=== PATIENT | male | born 1990 | race Two or more races ===

== ENCOUNTER 2016-05-29 13:13 | Inpatient (IN) | payer OTHER ==
[~2016-05-29] VITALS: Ht 185.4 cm; Wt 68.9 kg
--- NOTE | 2016-05-29 15:10 | Emergency Room Report ---
History of Present Illness General Chief Complaint: General Complaint Source: Patient Present Illness HPI 26 YOM sent by surgeon Dr Vargas for evaluation of ?spinal abscess following ? diskectomy in May for "pain to lower back." Patient allegedly had pus removed from area of ?abscess of lower back earlier. Dr Vargas recommending CTAP, labs, send Pus for Cx to lab. Admission to be handled by Dr Hassan. Patient had "normal MRI" one week prior. Patient denies IVDU, lower extremity weakness, urinary/bowel incontinence. Allergies: Coded Allergies: No Known Allergies (Unverified , 05/29/16) Patient History Past Medical History: none Past Surgical History: other - disckectomy Pertinent Family History: none Social History: Denies: alcohol use, drug use, smoking Immunizations: UTD Reviewed Nursing Documentation: PMH: Agreed, PSxH: Agreed Nursing Documentation-PMH Past Medical History: No History, Except For Review of Systems All Other Systems: negative except mentioned in HPI Physical Exam Vital Signs Date Time Temp Pulse Resp B/P Pulse Ox O2 Delivery O2 Flow Rate FiO2 05/29/16 13:32 98.1 0 100/68 97 Room Air Sp02 EP Interpretation: reviewed, normal General Appearance: normal inspection, well appearing, no apparent distress, alert Head: atraumatic ENT: normal ENT inspection, hearing grossly normal, normal voice Neck: normal inspection, full range of motion, supple, no bony tend Respiratory: normal inspection, lungs clear, normal breath sounds, no respiratory distress, no retraction, no wheezing Cardiovascular #1: regular rate, rhythm, no edema Gastrointestinal: normal inspection, normal bowel sounds, non tender, soft, no guarding, no hernia Genitourinary: no CVA tenderness Musculoskeletal: other - No obvious abscess or mass midline lower/thoracic back. There is a bandage overlying left midback with obvious ttp. No maggie discharge or bleeding. Neurologic: normal inspection, alert, responsive, speech normal Psychiatric: normal inspection, judgement/insight normal, mood/affect normal Skin: normal inspection, normal color, no rash Medical Decision Making Diagnostic Impression: Primary Impression: Back abscess Additional Impression: S/P diskectomy ER Course 26 YO M with ?back abscess s/p diskectomy. VSS. Afebrile. Patient endorsed to Dr Hassan as per gen surg recommendation at 343pm Labs, CTAP as per Dr Goldstein are pending I was instructed that Dr Hassan will order wound cx and appropriate antibiotics Last Vital Signs Date Time Temp Pulse Resp B/P Pulse Ox O2 Delivery O2 Flow Rate FiO2 05/29/16 13:32 98.1 0 100/68 97 Room Air Status: unchanged Disposition: ADMITTED INPATIENT Condition: Serious Referrals: NON PHYSICIAN (PCP) CALVIN CALL M.D. May 29, 2016 15:10
[2016-05-29] MEDS ORDERED: CIPRO500 MG PO (15:19)
[2016-05-29] MEDS ORDERED: NORCO 5-325 TA1 EAC1 ORAL (15:21)
[2016-05-29] MEDS ORDERED: METHOCARBAMOL750 MG ORAL ×2 (15:21→18:05)
[2016-05-29 15:27] VITALS: BP 118/60
[2016-05-29 15:54] LABS: BASOPHILS % (AUTO) 0.8 % (0.0-2.0); EOSINOPHILS % (AUTO) 0.6 % (0.0-3.0); LYMPHOCYTES % (AUTO) 22.1 % (20.0-45.0); MEAN CORPUSCULAR HEMOGLOBIN 30.6 PG (27.0-31.0); MEAN CORPUSCULAR HGB CONC 34.6 G/DL (32.0-36.0); MEAN CORPUSCULAR VOLUME 88 FL (80-99); MEAN PLATELET VOLUME 5.4 FL (6.5-10.1); MONOCYTES % (AUTO) 10.3 % (1.0-10.0); NEUTROPHILS % (AUTO) 66.2 % (45.0-75.0); PLATELET COUNT 296 K/UL (150-450); RED BLOOD COUNT 4.02 M/UL (4.70-6.10); RED CELL DISTRIBUTION WIDTH 10.5 % (11.6-14.8); WHITE BLOOD COUNT 8.4 K/UL (4.8-10.8)
[2016-05-29 16:02] LABS: INR 1.2 (0.9-1.1); PROTHROMBIN TIME 12.2 SEC (9.30-11.50)
[2016-05-29 16:03] LABS: APPEARANCE,URINE CLEAR; KETONES,URINE 3+ (NEGATIVE); LEUKOCYTE ESTERASE ,URINE 1+ (NEGATIVE); NITRITE,URINE NEGATIVE (NEGATIVE); PH,URINE 5 (4.5-8.0); PROTEIN,URINE 1+ (NEGATIVE); UROBILINOGEN,URINE NORMAL MG/DL (0.0-1.0)
[2016-05-29 16:13] LABS: BACTERIA,URINE FEW /HPF; WBC,URINE 0-2 /HPF (0 - 0)
[2016-05-29 16:19] LABS: ALANINE AMINOTRANSFERASE 13 U/L (3-41); ALBUMIN/GLOBULIN RATIO 1.1 (1.0-2.7); ANION GAP 16 (5-15); ASPARTATE AMINO TRANSFERASE 11 U/L (5-40); CALCIUM 9.4 mg/dL (8.6-10.2); CARBON DIOXIDE 26 mEQ/L (20-30); CHLORIDE 98 mEQ/L (98-107); CREATININE 0.7 mg/dL (0.7-1.2); GLOMERULAR FILTRATION RATE > 60 mL/min (>60); HEMOLYSIS 5; LIPASE 22 U/L (< 60); POTASSIUM 3.7 mEQ/L (3.4-4.9); SODIUM 140 mEQ/L (135-145); TOTAL PROTEIN 7.4 g/dL (6.6-8.7)
--- NOTE | 2016-05-29 17:29 | Diagnostic Imaging Report ---
Indication: PAIN Technique: One view of the chest Comparison: none Findings: Lungs and pleural spaces are clear. The heart size is normal. Impression: Negative
[2016-05-29 18:00] VITALS: BP 128/86
[2016-05-29] MEDS ORDERED: MOTRIN IB200 MG ORAL (18:05)
[2016-05-29 19:00] VITALS: BP 142/80
[2016-05-29] MEDS: Vancomycin 1gm in Dextrose 275ml IVPB SCH (22:22)
[2016-05-29] MEDS: Methocarbamol 750mg tab ORAL PRN (22:23)
[2016-05-29] MEDS: Norco 5mg/325mg tab ORAL PRN (22:24)
--- NOTE | 2016-05-29 22:57 | History and Physical Report ---
DATE OF ADMISSION: 05/29/2016 REASON FOR ADMISSION: Diskitis. HISTORY OF PRESENT ILLNESS: This is a 26-year-old male, who recently underwent lumbar diskectomy. The patient postoperatively was noted to have some inflammation and pain. The patient underwent aspiration and pus removed. The patient is now transferred for admission for IV antibiotics and further intervention. PAST MEDICAL HISTORY: The patient's past medical history is essentially negative. The patient does have a history of cervical radiculopathy, otherwise has been healthy. The patient has a recent history of lumbar diskectomy as outlined. FAMILY HISTORY: Father of lung cancer. Mother is alive and healthy. SOCIAL HISTORY: The patient is and has children. The patient does have a history of smoking, quarter a pack a day and social alcohol use. REVIEW OF SYSTEMS: Otherwise negative. PHYSICAL EXAMINATION: GENERAL: A well-developed male, comfortable. NECK: Supple. LUNGS: Clear. CARDIAC: S1 and S2. Regular rhythm. ABDOMEN: Soft and nontender. EXTREMITIES: No edema. The patient has pain in the lower back. LABORATORY DATA: The patient's previous laboratories, CRP is 7.8 and sedimentation rate 27. The patient's other laboratory data is otherwise reviewed. IMPRESSION: 1. Diskitis. 2. Postoperative anemia and pain. 3. Status post drainage of pus in the lumbar region. RECOMMENDATION: MRI of the lumbosacral spine. We will send all the cultures for evaluation. Infectious Disease evaluation. We will start him on vancomycin and Zosyn for now. Recommend further pending evaluation and pain control. We will discharge with intravenous antibiotics once cleared by Infectious Disease. Dl Hassan M.D. DR: Guevara JOB#: [id number] CC:
[2016-05-30] VITALS (7 sets, daily range): BP systolic 112–132; BP diastolic 59–76
[2016-05-30] MEDS: Norco 5mg/325mg tab ORAL PRN ×2 (04:29→13:43)
[2016-05-30] MEDS: Vancomycin 1gm in Dextrose 275ml IVPB SCH ×3 (05:21→21:53)
[2016-05-30 07:24] LABS: BASOPHILS % (AUTO) 2.4 % (0.0-2.0); EOSINOPHILS % (AUTO) 0.9 % (0.0-3.0); MEAN CORPUSCULAR HEMOGLOBIN 30.7 PG (27.0-31.0); MEAN CORPUSCULAR HGB CONC 34.6 G/DL (32.0-36.0); MEAN CORPUSCULAR VOLUME 89 FL (80-99); MEAN PLATELET VOLUME 5.6 FL (6.5-10.1); MONOCYTES % (AUTO) 16.1 % (1.0-10.0); NEUTROPHILS % (AUTO) 63.5 % (45.0-75.0); PLATELET COUNT 312 K/UL (150-450); RED BLOOD COUNT 4.01 M/UL (4.70-6.10); RED CELL DISTRIBUTION WIDTH 10.6 % (11.6-14.8); WHITE BLOOD COUNT 8.3 K/UL (4.8-10.8)
[2016-05-30 07:29] LABS: ANION GAP 16 (5-15); CALCIUM 9.5 mg/dL (8.6-10.2); CARBON DIOXIDE 26 mEQ/L (20-30); CHLORIDE 100 mEQ/L (98-107); CREATININE 0.6 mg/dL (0.7-1.2); GLOMERULAR FILTRATION RATE > 60 mL/min (>60); HEMOLYSIS 4; SODIUM 142 mEQ/L (135-145)
[2016-05-30] MEDS: Piperacillin/Tazobactam 4.5 GM in D5W 110 ML IVPB SCH ×4 (08:00→17:03)
--- NOTE | 2016-05-30 08:36 | General Progress Note ---
Assessment/Plan Assessment/Plan IMPRESSION: 1. Diskitis. 2. Postoperative anemia and pain. 3. Status post drainage of pus in the lumbar region PLAN IV antibiotics local care ID evaluation pain control Subjective Allergies: Coded Allergies: No Known Allergies (Unverified , 05/29/16) Subjective care noted Objective Last 24 Hour Vital Signs Date Time Temp Pulse Resp B/P Pulse Ox O2 Delivery O2 Flow Rate FiO2 05/30/16 04:00 97.2 69 20 119/62 96 Room Air 05/30/16 00:42 98.2 74 18 117/60 95 Room Air 05/29/16 19:00 99.1 88 20 142/80 98 Room Air 05/29/16 18:00 99.0 95 20 128/86 98 Room Air 05/29/16 17:03 98.4 75 19 126/62 98 Room Air 05/29/16 15:27 98.4 81 19 118/60 97 Room Air 05/29/16 13:32 98.1 0 100/68 97 Room Air Intake and Output 05/29/16 05/30/16 19:00 07:00 Intake Total 100 ml 395.000 ml Balance 100 ml 395.000 ml Intake Oral 100 ml 120 ml IV Total 275.000 ml # Voids 5 # Bowel Movements 1 1 Laboratory Tests 05/29/16 15:25: White Blood Count 8.4, Red Blood Count 4.02L, Hemoglobin 12.3L, Hematocrit 35.5L , Mean Corpuscular Volume 88, Mean Corpuscular Hemoglobin 30.6, Mean Corpuscular Hemoglobin Concent 34.6, Red Cell Distribution Width 10.5L, Platelet Count 296, Mean Platelet Volume 5.4L, Neutrophils (%) (Auto) 66.2, Lymphocytes (%) (Auto) 22.1, Monocytes (%) (Auto) 10.3H, Eosinophils (%) (Auto) 0.6, Basophils (%) (Auto) 0.8, Erythrocyte Sedimentation Rate 43H, Prothrombin Time 12.2H, Prothromb Time International Ratio 1.2H, Activated Partial Thromboplast Time 27, Sodium Level 140, Potassium Level 3.7, Chloride Level 98, Carbon Dioxide Level 26, Anion Gap 16H, Blood Urea Nitrogen 14, Creatinine 0.7, Estimat Glomerular Filtration Rate > 60, Glucose Level 85, Calcium Level 9.4, Total Bilirubin 0.4, Aspartate Amino Transf (AST/SGOT) 11, Alanine Aminotransferase (ALT/SGPT) 13, Alkaline Phosphatase 51, C-Reactive Protein, Quantitative 8.6H, Total Protein 7.4, Albumin 4.0, Globulin 3.4, Albumin/ Globulin Ratio 1.1, Lipase 22 05/29/16 15:29: Urine Color Yellow, Urine Appearance Clear, Urine pH 5, Urine Specific [place] 1.020, Urine Protein 1+H, Urine Glucose (UA) Negative, Urine Ketones 3+H, Urine Occult Blood 1+H, Urine Nitrite Negative, Urine Bilirubin Negative, Urine Urobilinogen Normal, Urine Leukocyte Esterase 1+H, Urine RBC 2-4H, Urine WBC 0-2 , Urine Squamous Epithelial Cells None, Urine Bacteria Few 05/30/16 05:15: White Blood Count 8.3, Red Blood Count 4.01L, Hemoglobin 12.3L, Hematocrit 35.5L , Mean Corpuscular Volume 89, Mean Corpuscular Hemoglobin 30.7, Mean Corpuscular Hemoglobin Concent 34.6, Red Cell Distribution Width 10.6L, Platelet Count 312, Mean Platelet Volume 5.6L, Neutrophils (%) (Auto) 63.5, Lymphocytes (%) (Auto) 17.0L, Monocytes (%) (Auto) 16.1H, Eosinophils (%) (Auto ) 0.9, Basophils (%) (Auto) 2.4H, Sodium Level 142, Potassium Level 4.0, Chloride Level 100, Carbon Dioxide Level 26, Anion Gap 16H, Blood Urea Nitrogen 15, Creatinine 0.6L, Estimat Glomerular Filtration Rate > 60, Glucose Level 100 , Calcium Level 9.5 Height (Feet): 6 Height (Inches): 1.00 Weight (Pounds): 152 Objective PHYSICAL EXAMINATION: GENERAL: A well-developed male, comfortable. NECK: Supple. LUNGS: Clear. CARDIAC: S1 and S2. Regular rhythm. ABDOMEN: Soft and nontender. EXTREMITIES: No edema. The patient has pain in the lower back. . ROSLYN RAYMUNDO May 30, 2016 08:36
[2016-05-30] MEDS: Methocarbamol 750mg tab ORAL PRN (09:23)
[2016-05-30] MEDS ORDERED: LORazepam 1mg tab ORAL ONE (10:15)
[2016-05-30] MEDS ORDERED: LORazepam 0.5mg tab ORAL ONE (10:15)
--- NOTE | 2016-05-30 10:29 | Diagnostic Imaging Report ---
Indication: Abdominal pain Technique: Continuous helical transaxial imaging of the abdomen and pelvis was obtained from the lung bases to the pubic symphysis during intravenous contrast administration. Coronal 2-D reformats were also obtained. Study obtained in a Siemens sensation [address] Total Dose length Product (DLP): [address] Dose Index Volume (CTDIvol): 16 mGy Comparison: None Findings: The lung bases are clear. The liver and spleen unremarkable in appearance. Kidneys, gallbladder and pancreas appear unremarkable. Moderate lateral fecal material within the colon noted. There is abnormally rim there enhancing focus of low attenuation in the left psoas muscle which is enlarged. The focus measures approximately 4.4 x 4.4 x 2.6 cm and is at the level of L4-5 findings are suspicious for a left psoas abscess in association with spondylitis. There is irregularity and suggestion of erosion involving the superior endplate of L5 suspicious for discitis and osteomyelitis. There is a probable tiny focus of air within the left psoas collection. There is a suspected small epidural collection posterior to the L4-5 disc and the L5 vertebra.Further evaluation of the findings with MRI is highly recommended. This should be done with and without gadolinium. Impression: Suspected at L4-5 discitis/osteomyelitis. Possible small epidural abscess at this level. Approximately 4.4 x 4.4 x 2.6 cm rim-enhancing suspected abscess in the left so as muscle noted adjacently. Further evaluation with gadolinium-enhanced MRI is recommended. Dr. Martino has communicated the preliminary results to the Emergency Department. There are no significant discrepancies. The CT scanner at [facility] is accredited by the [employer] and the scans are performed using protocols designed to limit radiation exposure to as low as reasonably achievable to attain images of sufficient resolution adequate for diagnostic evaluation.
[2016-05-30] MEDS ORDERED: LORazepam Inj 2mg/ml 1ml IV ONE (10:30)
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
--- NOTE | 2016-05-30 13:04 | Diagnostic Imaging Report ---
Indication: Back pain Technique: MRI examination of the Lumbar spine was performed in a 1.5 [place]ora magnet. Sequences obtained include sagittal and axial T1 and T2 fast spin echo, and sagittal STIR. Gadolinium-enhanced sagittal coronal and axial T1 fast spin-echo with fat saturation obtained. Comparison: none Findings: There is abnormal enhancement of the posterior aspect of the L4-5 disc especially toward the superior endplate. By CT the superior endplate in this location demonstrated some erosion. In addition there is a moderate enhancement of the posterior annular portion of the disc as well as the epidural space in the subligamentous location posterior to L5, extending into the left L4-5 neural foramen and into the psoas muscle. There is no epidural abscess. The enhancement may be associated with the discitis that is suspected. There is a hint of T2 hyperintense signal along the superior endplate of L5 present. In addition, there is a abnormal focus of heterogeneous T2 hyperintense edema in the left psoas muscle. The area of edema and enhances intensely with contrast material. Post enhancement images demonstrate several tiny pockets of low T1 signal fluid. The largest single pocket is about 2 x 1.1 CM. Both the exiting left L3 and L4 nerve roots traverse the abscess collection. The findings are consistent with a multiloculated left psoas abscess in association with discitis/osteomyelitis. There is narrowing of the L4-5 disc. There is a concentric disc bulge at L5-S1. There is no evidence of central spinal stenosis or neural foraminal stenosis. There is some hypertrophy of the L4-5 and L5-S1 facets. Impression: L4-5 discitis/osteomyelitis with moderate degree of epidural enhancement involving the subligamentous epidural space posterior to L5 as well as the left lateral recess/neural foramen of L4-5 with extension into the left paravertebral psoas muscle. Multiloculated left psoas muscle abscess noted.
[2016-05-30] MEDS ORDERED: Sodium Bicarbonate 8.4% 50ml Inj IV PRN (14:30)
[2016-05-30] MEDS ORDERED: Lidocaine 1% Plain 30 ml INJ PRN (14:30)
--- NOTE | 2016-05-30 15:54 | Diagnostic Imaging Report ---
Indication: lumbar abscess Technique: Continuous helical transaxial imaging of the lower lumbar spine was obtained with the patient prone. No IV contrast was administered. Coronal 2-D reformats were also obtained. Study obtained in a Siemens sensation [address] Total Dose length Product (DLP): [address] Dose Index Volume (CTDIvol): 12x7 mGy Comparison: None Findings and procedure: Informed consent for the procedure was obtained. The risks, benefits, and alternatives to the procedure were discussed with the responsible democrat. We were given verbal and written consent to proceed. After the CT images were reviewed, the lower back was prepped and sterilely draped. 1% lidocaine was administered for local anesthesia. Dermatotomy made. Micropuncture needle was used to access the abscess at L4-5. Some fluid was aspirated. A 0.018 wire was then advanced. Exchange was made for a 0.035 wire. Subsequently a 7 Turk[place] pigtail drainage catheter was advanced over the wire into the abscess cavity. Aspiration yielded approximately 13 cc of cloudy blood-tinged fluid. Review of the final images show good positioning of the catheter within the chosen region of interest. There were no complications and the patient tolerated the procedure well. Impression: Successful aspiration and CT-guided drainage of a left paravertebral psoas abscess at L4-5. Fluid obtained was sent for culture and sensitivities, Gram stain, AFB stain and culture, fungal culture. The CT scanner at [facility] is accredited by the [employer] and the scans are performed using protocols designed to limit radiation exposure to as low as reasonably achievable to attain images of sufficient resolution adequate for diagnostic evaluation.
[2016-05-30] MEDS: HYDROmorphone 1mg/ml Carpuject IVP PRN (18:38)
[2016-05-30] MEDS ORDERED: Piperacillin/Tazobactam 4.5 GM in D5W 110 ML IVPB SCH (22:00)
[2016-05-31] MEDS: Piperacillin/Tazobactam 4.5 GM in D5W 110 ML IVPB SCH ×3 (00:13→16:00)
[2016-05-31] MEDS: HYDROmorphone 1mg/ml Carpuject IVP PRN ×4 (00:58→20:31)
[2016-05-31 04:00] VITALS: BP 106/57
[2016-05-31] MEDS: Vancomycin 1250mg/D5W 275ml IVPB SCH ×6 (04:00→21:06)
[2016-05-31 08:00] VITALS: BP 122/81
--- NOTE | 2016-05-31 11:57 | General Progress Note ---
Assessment/Plan Assessment/Plan IMPRESSION: 1. Diskitis. 2. Postoperative anemia and pain. 3. Status post drainage of pus in the lumbar region PLAN IV antibiotics Pain management local care ID evaluation pain control Subjective Allergies: Coded Allergies: No Known Allergies (Unverified , 05/29/16) Subjective care noted Objective Last 24 Hour Vital Signs Date Time Temp Pulse Resp B/P Pulse Ox O2 Delivery O2 Flow Rate FiO2 05/31/16 08:00 97.3 118 20 122/81 Room Air 05/31/16 04:00 97.2 65 21 106/57 97 Room Air 05/30/16 23:57 98.6 72 20 113/69 96 Room Air 05/30/16 19:00 98.8 82 20 112/59 95 Room Air 05/30/16 16:00 96.0 79 20 115/75 99 Room Air 05/30/16 12:00 97.9 69 20 132/76 99 Room Air Intake and Output 05/30/16 05/31/16 19:00 07:00 Intake Total 350 ml 723.708 ml Output Total 0 ml Balance 350 ml 723.708 ml Intake Oral 240 ml 540 ml IV Total 110 ml 183.708 ml Output Urine Total 0 ml Other 0 ml # Voids 3 3 Laboratory Tests 05/30/16 21:00: Vancomycin Level Trough 9.6 Height (Feet): 6 Height (Inches): 1.00 Weight (Pounds): 152 Objective PHYSICAL EXAMINATION: GENERAL: A well-developed male, comfortable. NECK: Supple. LUNGS: Clear. CARDIAC: S1 and S2. Regular rhythm. ABDOMEN: Soft and nontender. EXTREMITIES: No edema. The patient has pain in the lower back. . ROSLYN RAYMUNDO May 31, 2016 11:57
[2016-05-31 12:00] VITALS: BP 105/58
[2016-05-31] MEDS: Norco 5mg/325mg tab ORAL PRN ×2 (14:23→22:55)
[2016-05-31 16:00] VITALS: BP 110/76
[2016-05-31 20:00] VITALS: BP 118/71
[2016-06-01] MEDS: Piperacillin/Tazobactam 4.5 GM in D5W 110 ML IVPB SCH ×3 (00:42→16:40)
[2016-06-01] MEDS: HYDROmorphone 1mg/ml Carpuject IVP PRN ×3 (00:43→19:07)
[2016-06-01 00:56] VITALS: BP 121/60
[2016-06-01 04:00] VITALS: BP 110/69
[2016-06-01] MEDS: Vancomycin 1250mg/D5W 275ml IVPB SCH ×6 (04:46→20:34)
--- NOTE | 2016-06-01 06:06 | General Progress Note ---
Assessment/Plan Assessment/Plan IMPRESSION: 1. Diskitis. 2. Postoperative anemia and pain. 3. Status post drainage of pus in the lumbar region PLAN IV antibiotics Pain management local care ID evaluation pain control await culture results maintain drainage catheter per surgery Subjective Allergies: Coded Allergies: No Known Allergies (Unverified , 05/29/16) Subjective care noted Objective Last 24 Hour Vital Signs Date Time Temp Pulse Resp B/P Pulse Ox O2 Delivery O2 Flow Rate FiO2 06/01/16 04:00 97.2 51 20 110/69 99 Nasal Cannula 2.0 06/01/16 00:56 98.4 64 21 121/60 100 Nasal Cannula 2.0 05/31/16 20:00 97.5 84 17 118/71 Room Air 05/31/16 16:00 98.1 78 18 110/76 Room Air 05/31/16 12:00 99.0 70 20 105/58 98 Room Air 05/31/16 08:45 97.2 05/31/16 08:00 97.3 118 20 122/81 Room Air Intake and Output 05/31/16 06/01/16 19:00 07:00 Intake Total 480 ml 1285.000 ml Output Total 655 ml Balance 480 ml 630.000 ml Intake Oral 480 ml 300 ml IV Total 985.000 ml Output Urine Total 650 ml Other 5 ml # Voids 3 Height (Feet): 6 Height (Inches): 1.00 Weight (Pounds): 152 Objective PHYSICAL EXAMINATION: GENERAL: A well-developed male, comfortable. NECK: Supple. LUNGS: Clear. CARDIAC: S1 and S2. Regular rhythm. ABDOMEN: Soft and nontender. EXTREMITIES: No edema. The patient has pain in the lower back. . ROSLYN RAYMUNDO Jun 01, 2016 06:06
[2016-06-01] MEDS: Norco 5mg/325mg tab ORAL PRN ×2 (07:57→18:22)
[2016-06-01 08:30] VITALS: BP 116/68
--- NOTE | 2016-06-01 11:02 | Infectious Diseases Prog Note ---
Assessment/Plan Assessment/Plan A: L4-L5 osteomyelitis Psoas abscess s/p diskectomy P: Continue Zosyn & Vancomycin Will f/u cultures Subjective ROS Limited/Unobtainable: No Constitutional: Reports: no symptoms Respiratory: Reports: no symptoms Gastrointestinal/Abdominal: Reports: nausea, vomiting Musculoskeletal: Reports: other - back pain, pain Allergies: Coded Allergies: No Known Allergies (Unverified , 05/29/16) Objective Vital Signs Last 24 Hour Vital Signs Date Time Temp Pulse Resp B/P Pulse Ox O2 Delivery O2 Flow Rate FiO2 06/01/16 08:30 97.5 66 20 116/68 99 Room Air 06/01/16 04:00 97.2 51 20 110/69 99 Nasal Cannula 2.0 06/01/16 00:56 98.4 64 21 121/60 100 Nasal Cannula 2.0 05/31/16 20:00 97.5 84 17 118/71 Room Air 05/31/16 16:00 98.1 78 18 110/76 Room Air 05/31/16 12:00 99.0 70 20 105/58 98 Room Air Height (Feet): 6 Height (Inches): 1.00 Weight (Pounds): 152 General Appearance: no acute distress HEENT: mucous membranes moist Respiratory/Chest: lungs clear Cardiovascular: normal rate Abdomen: soft, non tender, other - drain in left back Extremities: no edema Neurologic/Psychiatric: alert, oriented x 3, responsive Microbiology Date/Time Source Procedure Growth Status 05/29/16 15:30 Blood Blood Culture - Preliminary NO GROWTH AFTER 48 HOURS Resulted 05/29/16 15:00 Blood Blood Culture - Preliminary NO GROWTH AFTER 48 HOURS Resulted 05/30/16 15:10 Body Fluid Other AFB Specimen Processing Tissue - Final Resulted 05/30/16 15:10 Body Fluid Other Acid Fast Bacilli Smear - Final Resulted 05/30/16 15:10 Body Fluid Other Acid Fast Bacilli Culture Pending Resulted 05/30/16 15:10 Other(Specify in comment) Gram Stain - Final Resulted 05/30/16 15:10 Other(Specify in comment) Wound Culture Pending Resulted Current Medications Medications (Trade) Dose Ordered Sig/Stefania Route PRN Reason Start Time Stop Time Status Last Admin Dose Admin Acetaminophen (Tylenol) 650 mg Q4H PRN ORAL Mild Pain/Temp > 100.5 05/29/16 19:45 06/28/16 19:44 05/30/16 03:56 Acetaminophen/ Hydrocodone Bitart ([place] 5/325) 1 tab Q6H PRN ORAL FOR MODERATE PAIN 05/29/16 19:45 06/05/16 19:44 06/01/16 07:57 Hydromorphone HCl 1 mg 1 mg Q3H PRN IVP Severe Break[place] Pain (>7) 05/30/16 18:15 06/06/16 18:14 06/01/16 04:46 Methocarbamol 750 mg 750 mg Q6H PRN ORAL Muscle Spasm 05/29/16 19:45 06/28/16 19:44 05/30/16 09:23 Ondansetron HCl (Zofran) 4 mg Q6H PRN IVP Nausea & Vomiting 05/30/16 10:30 06/29/16 10:29 06/01/16 05:32 Piperacillin Sod/ Tazobactam Sod/ Dextrose (Zosyn/D5W) 110 ml @ 27.5 mls/hr Q8H IVPB 05/30/16 00:00 06/06/16 00:00 06/01/16 09:24 Sodium Chloride (0.45% NS 1000ml) 1,000 ml @ 100 mls/hr Q10H IV 05/31/16 14:00 06/30/16 13:59 05/31/16 22:55 Vancomycin HCl (Vanco rx to dose) 1 ea DAILY PRN MISC Per rx protocol 05/29/16 19:45 06/28/16 19:44 Vancomycin HCl 1.25 gm/Dextrose 275 ml @ 183.333 mls/hr Q8H IVPB 05/31/16 04:00 06/05/16 03:59 06/01/16 04:46 BING RUSSO Jun 01, 2016 11:02
[2016-06-01 12:46] VITALS: BP 119/49
[2016-06-01 16:09] VITALS: BP 100/60
[2016-06-01 20:36] VITALS: BP 123/68
[2016-06-02] VITALS: BP 122/73
[2016-06-02] MEDS: Piperacillin/Tazobactam 4.5 GM in D5W 110 ML IVPB SCH ×2 (00:03→08:00)
[2016-06-02] MEDS: HYDROmorphone 1mg/ml Carpuject IVP PRN ×3 (00:03→13:42)
[2016-06-02] MEDS: Norco 5mg/325mg tab ORAL PRN ×2 (03:42→18:09)
[2016-06-02 04:00] VITALS: BP 127/78
[2016-06-02] MEDS: Vancomycin 1250mg/D5W 275ml IVPB SCH ×2 (04:18)
[2016-06-02 08:00] VITALS: BP 121/82
[2016-06-02] MEDS ORDERED: Sodium Bicarbonate 8.4% 50ml Inj IV PRN (08:30)
[2016-06-02] MEDS ORDERED: Heparin 2000 units/Ns 1000ml INJ PRN (08:30)
[2016-06-02] MEDS ORDERED: Lidocaine 1% Plain 30 ml INJ PRN (08:30)
--- NOTE | 2016-06-02 08:34 | General Progress Note ---
Assessment/Plan Assessment/Plan IMPRESSION: 1. Diskitis. with enterococcus 2. Postoperative anemia and pain. 3. Status post drainage of pus in the lumbar region PLAN IV antibiotics- dc zosyn and place on ampicillin Pain management; start oxycontin local care ID evaluation to taper antibiotics pain control dc planning patient may need SNF Subjective Allergies: Coded Allergies: No Known Allergies (Unverified , 05/29/16) Subjective care noted Objective Last 24 Hour Vital Signs Date Time Temp Pulse Resp B/P Pulse Ox O2 Delivery O2 Flow Rate FiO2 06/02/16 08:00 97.5 65 19 121/82 98 Room Air 06/02/16 04:57 97.0 06/02/16 04:00 97.5 70 18 127/78 98 Nasal Cannula 2.0 06/02/16 00:35 97.0 06/02/16 00:00 97.9 60 18 122/73 99 Nasal Cannula 2.0 06/01/16 20:36 97.0 71 19 123/68 97 Room Air 06/01/16 16:09 97.9 73 18 100/60 99 Nasal Cannula 2.0 06/01/16 12:46 98.2 76 20 119/49 95 Room Air Intake and Output 06/01/16 06/02/16 19:00 07:00 Intake Total 295.0 ml 1258.326 ml Output Total 35 ml Balance 295.0 ml 1223.326 ml Intake Oral 240 ml 360 ml IV Total 55.0 ml 898.326 ml Other 35 ml # Voids 2 1 Height (Feet): 6 Height (Inches): 1.00 Weight (Pounds): 152 Objective PHYSICAL EXAMINATION: GENERAL: A well-developed male, comfortable. NECK: Supple. LUNGS: Clear. CARDIAC: S1 and S2. Regular rhythm. ABDOMEN: Soft and nontender. EXTREMITIES: No edema. The patient has pain in the lower back. . ROSLYN RAYMUNDO Jun 02, 2016 08:34
[2016-06-02] MEDS: oxyCONTIN 20mg tab ORAL SCH ×2 (10:12→20:49)
--- NOTE | 2016-06-02 11:20 | Infectious Diseases Prog Note ---
"Assessment/Plan Assessment/Plan antibiotics : vancomycin iv, ampicillin A 1. lumbar discitis | osteomyelitis 2. psoas abscess s/p aspiration with enterococcus 3. s/p lumbar discectomy P 1. continue iv ampicillin 2. d/c iv vancomycin 3. consider PICC line Subjective Constitutional: Denies: chills, fever Respiratory: Denies: dry cough, shortness of breath Gastrointestinal/Abdominal: Denies: diarrhea, nausea, vomiting Musculoskeletal: Reports: pain Allergies: Coded Allergies: No Known Allergies (Unverified , 05/29/16) Objective Vital Signs Last 24 Hour Vital Signs Date Time Temp Pulse Resp B/P Pulse Ox O2 Delivery O2 Flow Rate FiO2 06/02/16 08:00 97.5 65 19 121/82 98 Room Air 06/02/16 04:57 97.0 06/02/16 04:00 97.5 70 18 127/78 98 Nasal Cannula 2.0 06/02/16 00:35 97.0 06/02/16 00:00 97.9 60 18 122/73 99 Nasal Cannula 2.0 06/01/16 20:36 97.0 71 19 123/68 97 Room Air 06/01/16 16:09 97.9 73 18 100/60 99 Nasal Cannula 2.0 06/01/16 12:46 98.2 76 20 119/49 95 Room Air Height (Feet): 6 Height (Inches): 1.00 Weight (Pounds): 152 Respiratory/Chest: lungs clear Cardiovascular: normal rate, regular rhythm, no gallop/murmur Abdomen: soft, non tender Extremities: no edema Microbiology Date/Time Source Procedure Growth Status 05/30/16 15:10 Body Fluid Other AFB Specimen Processing Tissue - Final Resulted 05/30/16 15:10 Body Fluid Other Acid Fast Bacilli Smear - Final Resulted 05/30/16 15:10 Body Fluid Other Acid Fast Bacilli Culture Pending Resulted 05/30/16 15:10 Other(Specify in comment) Gram Stain - Final Resulted 05/30/16 15:10 Other(Specify in comment) Wound Culture - Preliminary Resulted SMITHA YAP Jun 02, 2016 11:20"
[2016-06-02 12:05] VITALS: BP 104/63
[2016-06-02] MEDS: Methocarbamol 750mg tab ORAL PRN (13:58)
[2016-06-02] MEDS: Ampicillin 1 GM in NS 55 ML IVPB SCH ×2 (14:03→18:08)
--- NOTE | 2016-06-02 14:45 | Diagnostic Imaging Report ---
Indications: Needs long-term IV access Technique: Ultrasound confirms patent compressible left basilic vein. Total sterile technique, including sterile probe cover and sterile gel, hat, mask,, sterile gown, large sterile drape, and preparation with 2% chlorhexidine utilized. Local anesthesia with 1% lidocaine. Under real-time ultrasound guidance, puncture is a vein using 21-gauge needle, documented and archived, passage 0.018 guidewire under direct fluoroscopy, which was used to determine appropriate catheter length, exchange for 5 Portuguese peel-away sheath. 5 Portuguese Bard dual-lumen power PICC cut to 47 cm. It was inserted through the peel-away sheath. Peel-away sheath and guidewire removed. Catheter fixed to the skin. Both catheter ports aspirated and flushed. Patient tolerated procedure well, without immediate complication. Digital radiograph documents satisfactory catheter tip position, at the cavoatrial junction. Total fluoroscopy time 0.3 minutes. Total dose area product 1.8 dGycm2 Impression: Successful placement of left arm PICC under sonographic and fluoroscopic guidance, as described above.
[2016-06-02 16:00] VITALS: BP 126/75
[2016-06-02 20:00] VITALS: BP 122/72
[2016-06-02 21:23] LABS: BASOPHILS % (AUTO) 1.3 % (0.0-2.0); EOSINOPHILS % (AUTO) 1.2 % (0.0-3.0); LYMPHOCYTES % (AUTO) 15.3 % (20.0-45.0); MEAN CORPUSCULAR HEMOGLOBIN 30.6 PG (27.0-31.0); MEAN CORPUSCULAR HGB CONC 34.2 G/DL (32.0-36.0); MEAN CORPUSCULAR VOLUME 89 FL (80-99); MEAN PLATELET VOLUME 5.2 FL (6.5-10.1); MONOCYTES % (AUTO) 10.7 % (1.0-10.0); NEUTROPHILS % (AUTO) 71.4 % (45.0-75.0); PLATELET COUNT 253 K/UL (150-450); RED BLOOD COUNT 3.45 M/UL (4.70-6.10); RED CELL DISTRIBUTION WIDTH 10.3 % (11.6-14.8); WHITE BLOOD COUNT 8.7 K/UL (4.8-10.8)
[2016-06-03] VITALS: BP 123/73
[2016-06-03] MEDS: Ampicillin 1 GM in NS 55 ML IVPB SCH ×5 (00:59→23:50)
[2016-06-03 04:00] VITALS: BP 126/76
[2016-06-03] MEDS: HYDROmorphone 1mg/ml Carpuject IVP PRN ×2 (07:54→10:50)
[2016-06-03 08:00] VITALS: BP 132/76
[2016-06-03] MEDS: oxyCONTIN 20mg tab ORAL SCH ×2 (08:57→21:08)
--- NOTE | 2016-06-03 11:19 | Infectious Diseases Prog Note ---
"Assessment/Plan Assessment/Plan antibiotics : ampicillin A 1. lumbar discitis | osteomyelitis 2. psoas abscess s/p aspiration with enterococcus 3. s/p lumbar discectomy P 1. continue iv ampicillin in hospital 2. iv vancomycin on discharge 37 more days 3. cbc, bmp, vancomycin level q weekly Subjective Constitutional: Denies: chills, fever Respiratory: Denies: dry cough, shortness of breath Gastrointestinal/Abdominal: Reports: nausea, vomiting, Denies: diarrhea Musculoskeletal: Reports: pain Allergies: Coded Allergies: No Known Allergies (Unverified , 05/29/16) Objective Vital Signs Last 24 Hour Vital Signs Date Time Temp Pulse Resp B/P Pulse Ox O2 Delivery O2 Flow Rate FiO2 06/03/16 08:24 97.6 06/03/16 08:00 97.6 76 20 132/76 97 Room Air 06/03/16 04:00 97.6 88 20 126/76 95 Room Air 06/03/16 00:00 97.6 75 20 123/73 96 Room Air 06/02/16 20:00 98.6 72 18 122/72 100 Room Air 06/02/16 16:00 98.2 72 17 126/75 97 Room Air 06/02/16 12:05 98.2 70 20 104/63 96 Room Air Height (Feet): 6 Height (Inches): 1.00 Weight (Pounds): 152 Respiratory/Chest: lungs clear Cardiovascular: normal rate, regular rhythm, no gallop/murmur Abdomen: soft, non tender Extremities: no edema, other - left arm PICC Laboratory Tests Test 06/02/16 21:00 White Blood Count 8.7 K/UL (4.8-10.8) Red Blood Count 3.45 M/UL (4.70-6.10) L Hemoglobin 10.6 G/DL (14.2-18.0) L Hematocrit 30.8 % (42.0-52.0) L Mean Corpuscular Volume 89 FL (80-99) Mean Corpuscular Hemoglobin 30.6 PG (27.0-31.0) Mean Corpuscular Hemoglobin Concent 34.2 G/DL (32.0-36.0) Red Cell Distribution Width 10.3 % (11.6-14.8) L Platelet Count 253 K/UL (150-450) Mean Platelet Volume 5.2 FL (6.5-10.1) L Neutrophils (%) (Auto) 71.4 % (45.0-75.0) Lymphocytes (%) (Auto) 15.3 % (20.0-45.0) L Monocytes (%) (Auto) 10.7 % (1.0-10.0) H Eosinophils (%) (Auto) 1.2 % (0.0-3.0) Basophils (%) (Auto) 1.3 % (0.0-2.0) C-Reactive Protein, Quantitative Pending SMITHA YAP Jun 03, 2016 11:19"
[2016-06-03 12:00] VITALS: BP 128/74
--- NOTE | 2016-06-03 12:25 | Diagnostic Imaging Report ---
Indications: ABSCESS Technique: Spiral acquisitions obtained through the lumbar spine. Multiplanar reconstructions were generated. No IV contrast utilized. Total dose length product 0.31 mGycm. CTDIvol(s) one point mGy Comparison: Spine MRI dated 05/30/2016, images from drainage catheter placement 05/30/2016 Findings: Lack of IV contrast limits evaluation of previously reported psoas abscess. There is asymmetric enlargement of the left psoas muscle, and slight central contrast heterogeneity, and infiltration of the pericolic fat. These findings all appear somewhat less striking than on the 05/30/2016 pre-drainage images. The drain has been removed in the interim There is extensive destruction of the superior L5 endplate and inferior L4 endplate, particular the former. This appears to have progressed since a previous abdominal CT of 05/29/2016. No findings to suggest epidural abscess are evident. There is mild circumferential annular bulge at this level, no significant spinal or neural foraminal stenosis. The remaining disc spaces and endplates are preserved. No acute fractures. No dislocations. There is unfused apophysis of the inferior left L3 facet. The bony alignment is normal. Impression: Evaluation of previously drained left psoas abscess is difficult on this exam, as the abscess is not outlined in the absence of IV contrast ministration. Slight edema of the left psoas muscle, perimuscular inflammatory change, and central low-attenuation appears less striking and on images taken prior catheter drainage. Pronounced destructive changes of the inferior L4 and superior L5 endplates, consistent with aggressive discitis/osteomyelitis right on recent MRI. This appears to have progressed chest since the recent previous studies. There there are no CT findings to suggest epidural abscess. Dr. Hassan notified of findings at time of interpretation The CT scanner at [facility] is accredited by the [employer] and the scans are performed using protocols designed to limit radiation exposure to as low as reasonably achievable to attain images of sufficient resolution adequate for diagnostic evaluation.
[2016-06-03] MEDS: Methocarbamol 750mg tab ORAL PRN (12:31)
[2016-06-03] MEDS ORDERED: LORazepam Inj 2mg/ml 1ml IV PRN (15:00)
[2016-06-03 16:00] VITALS: BP 132/86
[2016-06-03 20:00] VITALS: BP 127/72
--- NOTE | 2016-06-03 20:12 | General Progress Note ---
Assessment/Plan Assessment/Plan IMPRESSION: 1. Diskitis. with enterococcus 2. Postoperative anemia and pain. 3. Status post drainage of pus in the lumbar region PLAN IV antibiotics- on ampicillin Pain management; on oxycontin local care ID evaluation noted pain control await further surgical intervention Subjective Allergies: Coded Allergies: No Known Allergies (Unverified , 05/29/16) Subjective care noted reviewed with Dr. Goldstein aware of findings Objective Last 24 Hour Vital Signs Date Time Temp Pulse Resp B/P Pulse Ox O2 Delivery O2 Flow Rate FiO2 06/03/16 16:00 99.3 83 20 132/86 97 Room Air 06/03/16 12:00 97.8 78 20 128/74 98 Room Air 06/03/16 11:20 97.6 06/03/16 08:00 97.6 76 20 132/76 97 Room Air 06/03/16 04:00 97.6 88 20 126/76 95 Room Air 06/03/16 00:00 97.6 75 20 123/73 96 Room Air Intake and Output 06/02/16 06/03/16 19:00 07:00 Intake Total 1155 ml 205 ml Balance 1155 ml 205 ml Intake Oral 900 ml 0 ml IV Total 255 ml 205 ml # Voids 2 3 Laboratory Tests 06/02/16 21:00: White Blood Count 8.7, Red Blood Count 3.45L, Hemoglobin 10.6L, Hematocrit 30.8L , Mean Corpuscular Volume 89, Mean Corpuscular Hemoglobin 30.6, Mean Corpuscular Hemoglobin Concent 34.2, Red Cell Distribution Width 10.3L, Platelet Count 253, Mean Platelet Volume 5.2L, Neutrophils (%) (Auto) 71.4, Lymphocytes (%) (Auto) 15.3L, Monocytes (%) (Auto) 10.7H, Eosinophils (%) (Auto ) 1.2, Basophils (%) (Auto) 1.3, C-Reactive Protein, Quantitative [Pending] Height (Feet): 6 Height (Inches): 1.00 Weight (Pounds): 152 Objective PHYSICAL EXAMINATION: GENERAL: A well-developed male, comfortable. NECK: Supple. LUNGS: Clear. CARDIAC: S1 and S2. Regular rhythm. ABDOMEN: Soft and nontender. EXTREMITIES: No edema. The patient has pain in the lower back. drain out . ROSLYN RAYMUNDO Jun 03, 2016 20:12
[2016-06-04] VITALS: BP 151/63
[2016-06-04] MEDS: HYDROmorphone 1mg/ml Carpuject IVP PRN ×3 (04:24→16:54)
[2016-06-04] MEDS: Ampicillin 1 GM in NS 55 ML IVPB SCH ×4 (05:17→23:11)
[2016-06-04] MEDS: Methocarbamol 750mg tab ORAL PRN ×3 (07:56→20:05)
[2016-06-04 08:00] VITALS: BP 140/80
[2016-06-04] MEDS: oxyCONTIN 20mg tab ORAL SCH ×2 (09:23→20:04)
--- NOTE | 2016-06-04 10:57 | Diagnostic Imaging Report ---
Indication: ABSCESS Technique: Sagittal and axial T1 fast spin echo, sagittal and axial T2 fast echo, sagittal STIR, axial and sagittal pre-and postcontrast T1 fat-saturated images obtained of the lumbar spine Comparison: 05/30/2016. Reference also made to a CT scan of the lumbar spine dated 06/02/2016 Findings: Again demonstrated is narrowing of the L4-5 disc. Again demonstrated is increased STIR and T2, decreased T1 signal within the L4 and L5 vertebral body adjacent to the endplates. This is similar to the previous study. The degree of disc narrowing appears similar to the previous study. The endplates appear similar to the prior exam, and the destructive change described on recent CT scan is considerably less evident on MRI. Degree of contrast enhancement of the discs is similar to the previous exam. There is also mild contrast enhancement of the vertebral bodies adjacent to the endplates there is some contrast enhancement of the epidural space posterior to the L5 vertebral body and anterior to the spinal canal, but this appears to involve the fat and on the T2-weighted images. There is no evidence of epidural fluid collection to suggest abscess. Contrast enhancement extends through the left neural foramen into the left psoas muscle. The appearance of this is likewise unchanged from the previous exam. There is no significant disc bulge or protrusion at this level or neural foraminal stenosis. There is still some increased T2 signal within the left psoas muscle. There is is enhancement of the left psoas muscle. However, the small fluid collections previously demonstrated have decreased in size, status post catheter drainage. The amount of T2 signal abnormalities within the psoas and the amount of enhancement appears similar. The remaining disc spaces are preserved. The remaining vertebral bodies demonstrate normal marrow signal. There is some desiccation of the L5-S1 disc. No significant disc bulge or protrusion, spinal stenosis, or neural foraminal stenosis is seen elsewhere. Impression: Evidence of L4-5 discitis/osteomyelitis, with evidence of epidural enhancement in the subligamentous epidural space posterior L5, as well as enhancement of the epidural space of the left recess and neural foramen. Despite CT evidence of progressive bone erosion of the inferior L4 and superior L5 endplates, appearance on MRI is essentially identical to the previous study of 4 days earlier Persistent enhancement of the left psoas muscle, consistent with myositis. Patient underwent recent catheter drainage of previously demonstrated psoas abscess. There is considerable decrease in size of the main collection, although a few small subcentimeter locules persists. Other findings as noted
--- NOTE | 2016-06-04 11:27 | Infectious Diseases Prog Note ---
Assessment/Plan Assessment/Plan A: L4-L5 osteomyelitis Psoas abscess s/p diskectomy Anemia P: Continue Ampicillin in hospital Vancomycin on discharge 36 more days Will f/u cultures Subjective ROS Limited/Unobtainable: No Constitutional: Reports: fever, other - T=100.9 last night Respiratory: Reports: no symptoms Cardiovascular: Reports: no symptoms Gastrointestinal/Abdominal: Reports: no symptoms Neurologic: Reports: no symptoms Musculoskeletal: Reports: pain Allergies: Coded Allergies: No Known Allergies (Unverified , 05/29/16) Objective Vital Signs Last 24 Hour Vital Signs Date Time Temp Pulse Resp B/P Pulse Ox O2 Delivery O2 Flow Rate FiO2 06/04/16 08:00 97.7 81 20 140/80 96 Nasal Cannula 2.0 06/04/16 00:00 98.4 64 18 151/63 98 Room Air 06/03/16 22:07 98.6 06/03/16 20:00 100.9 90 18 127/72 97 Room Air 06/03/16 16:00 99.3 83 20 132/86 97 Room Air 06/03/16 12:00 97.8 78 20 128/74 98 Room Air Height (Feet): 6 Height (Inches): 1.00 Weight (Pounds): 152 General Appearance: no acute distress HEENT: PERRL Respiratory/Chest: lungs clear Cardiovascular: normal rate Abdomen: soft, non tender Extremities: no edema, other - left arm PICC line Neurologic/Psychiatric: alert, oriented x 3, responsive Current Medications Medications (Trade) Dose Ordered Sig/Stefania Route PRN Reason Start Time Stop Time Status Last Admin Dose Admin Acetaminophen (Tylenol) 650 mg Q4H PRN ORAL Mild Pain/Temp > 100.5 05/29/16 19:45 06/28/16 19:44 06/03/16 21:08 Acetaminophen/ Hydrocodone Bitart ([place] 5/325) 1 tab Q6H PRN ORAL FOR MODERATE PAIN 05/29/16 19:45 06/05/16 19:44 06/02/16 18:09 Ampicillin/Sodium Chloride (Ampicillin/ Sodium Chloride) 55 ml @ 110 mls/hr EVERY 6 HOURS IVPB 06/02/16 12:00 06/09/16 11:59 06/04/16 05:17 Hydromorphone HCl 1 mg 1 mg Q3H PRN IVP Severe Breakthru Pain (>7) 05/30/16 18:15 06/06/16 18:14 06/04/16 04:24 Lorazepam (Ativan 2mg/ml 1ml) 1 mg ONCE PRN IV PRIOR TO MRI 06/03/16 15:00 06/04/16 23:59 06/03/16 16:03 Methocarbamol (Robaxin) 750 mg Q6H PRN ORAL Muscle Spasm 05/29/16 19:45 06/28/16 19:44 06/04/16 07:56 Ondansetron HCl (Zofran) 4 mg Q6H PRN IVP Nausea & Vomiting 05/30/16 10:30 06/29/16 10:29 06/04/16 09:22 Oxycodone HCl (OxyCONTIN) 20 mg Q12HR ORAL 06/02/16 09:00 06/09/16 08:59 06/04/16 09:23 Sodium Chloride 1,000 ml @ 100 mls/hr Q10H IV 05/31/16 14:00 06/30/16 13:59 06/04/16 05:18 BING RUSSO Jun 04, 2016 11:27
[2016-06-04 12:00] VITALS: BP 132/81
--- NOTE | 2016-06-04 12:30 | General Progress Note ---
Assessment/Plan Assessment/Plan IMPRESSION: 1. Diskitis. with enterococcus 2. Postoperative anemia and pain. 3. Status post drainage of pus in the lumbar region 4. s/p PICC PLAN IV antibiotics- on ampicillin Pain management; on oxycontin VAnco on discharge local care ID evaluation noted pain control await further surgical intervention prior to dc Subjective Allergies: Coded Allergies: No Known Allergies (Unverified , 05/29/16) Subjective care noted reviewed with Dr. Goldstein aware of findings imaging noted Objective Last 24 Hour Vital Signs Date Time Temp Pulse Resp B/P Pulse Ox O2 Delivery O2 Flow Rate FiO2 06/04/16 12:00 98.2 68 20 132/81 95 Room Air 06/04/16 08:00 97.7 81 20 140/80 96 Nasal Cannula 2.0 06/04/16 00:00 98.4 64 18 151/63 98 Room Air 06/03/16 22:07 98.6 06/03/16 20:00 100.9 90 18 127/72 97 Room Air 06/03/16 16:00 99.3 83 20 132/86 97 Room Air Intake and Output 06/03/16 06/04/16 19:00 07:00 Intake Total 1395 ml 1450 ml Output Total 1 ml Balance 1394 ml 1450 ml Intake Oral 1140 ml 240 ml IV Total 255 ml 1210 ml Output Urine Total 1 ml # Bowel Movements 1 Height (Feet): 6 Height (Inches): 1.00 Weight (Pounds): 152 Objective PHYSICAL EXAMINATION: GENERAL: A well-developed male, comfortable. NECK: Supple. LUNGS: Clear. CARDIAC: S1 and S2. Regular rhythm. ABDOMEN: Soft and nontender. EXTREMITIES: No edema. The patient has pain in the lower back. drain out . ROSLYN RAYMUNDO Jun 04, 2016 12:30
[2016-06-04] MEDS: Norco 5mg/325mg tab ORAL PRN (14:29)
[2016-06-04 16:26] VITALS: BP 134/80
[2016-06-04 20:35] VITALS: BP 156/89
[2016-06-05] VITALS (8 sets, daily range): BP systolic 121–147; BP diastolic 69–86
[2016-06-05] MEDS: HYDROmorphone 1mg/ml Carpuject IVP PRN ×2 (04:31→07:17)
[2016-06-05] MEDS: Ampicillin 1 GM in NS 55 ML IVPB SCH ×3 (05:02→17:01)
--- NOTE | 2016-06-05 08:17 | General Progress Note ---
Assessment/Plan Assessment/Plan IMPRESSION: 1. Diskitis. with enterococcus 2. Postoperative anemia and pain. 3. Status post drainage of pus in the lumbar region 4. s/p PICC PLAN IV antibiotics- on ampicillin; change to vanco on discharge Pain management; on oxycontin; increased pain MD evaluation repeat CRP local care ID evaluation noted pain control await further surgical recommendations Subjective Allergies: Coded Allergies: No Known Allergies (Unverified , 05/29/16) Subjective care noted reviewed with Dr. Goldstein aware of findings pain management contacted Objective Last 24 Hour Vital Signs Date Time Temp Pulse Resp B/P Pulse Ox O2 Delivery O2 Flow Rate FiO2 06/05/16 04:00 99.1 77 14 124/78 94 Room Air 06/05/16 00:00 97.9 79 14 122/69 95 Nasal Cannula 2.0 06/04/16 20:35 95.9 76 19 156/89 97 Room Air 06/04/16 16:26 99.1 80 19 134/80 96 Room Air 06/04/16 13:42 98.2 06/04/16 12:00 98.2 68 20 132/81 95 Room Air Intake and Output 06/04/16 06/05/16 19:00 07:00 Intake Total 1490 ml 1450 ml Output Total 1000 ml Balance 1490 ml 450 ml Intake Oral 480 ml 340 ml IV Total 1010 ml 1110 ml Output Urine Total 1000 ml # Voids 1 2 # Bowel Movements 1 Height (Feet): 6 Height (Inches): 1.00 Weight (Pounds): 152 Objective PHYSICAL EXAMINATION: GENERAL: A well-developed male, comfortable. NECK: Supple. LUNGS: Clear. CARDIAC: S1 and S2. Regular rhythm. ABDOMEN: Soft and nontender. EXTREMITIES: No edema. The patient has pain in the lower back. drain out . ROSLYN RAYMUNDO Jun 05, 2016 08:17
[2016-06-05] MEDS: oxyCONTIN 20mg tab ORAL SCH ×2 (09:06→21:03)
--- NOTE | 2016-06-05 09:47 | Consultation ---
History of Present Illness General Date patient seen: Jun 05, 2016 Chief Complaint: General Complaint Present Illness Allergies: Coded Allergies: No Known Allergies (Unverified , 05/29/16) Medication History Scheduled Ciprofloxacin* (Cipro*), 500 MG PO BID, (Reported) Scheduled PRN Hydrocodone Bit/Acetaminophen 5-325* ([place] 5-325 Tablet*), 1 TAB ORAL Q6HR PRN for For Pain, (Reported) Ibuprofen* (Motrin Ib*), 200 MG ORAL Q4H PRN for For Pain, (Reported) Methocarbamol* (Methocarbamol*), 750 MG ORAL Q6HR PRN for Muscle Spasm, ( Reported) Patient History Healthcare decision maker Resuscitation status Full Code Advanced Directive on File No Physical Exam Last 24 Hour Vital Signs Date Time Temp Pulse Resp B/P Pulse Ox O2 Delivery O2 Flow Rate FiO2 06/05/16 04:00 99.1 77 14 124/78 94 Room Air 06/05/16 00:00 97.9 79 14 122/69 95 Nasal Cannula 2.0 06/04/16 20:35 95.9 76 19 156/89 97 Room Air 06/04/16 16:26 99.1 80 19 134/80 96 Room Air 06/04/16 13:42 98.2 06/04/16 12:00 98.2 68 20 132/81 95 Room Air Intake and Output 06/04/16 06/05/16 19:00 07:00 Intake Total 1490 ml 1450 ml Output Total 1000 ml Balance 1490 ml 450 ml Intake Oral 480 ml 340 ml IV Total 1010 ml 1110 ml Output Urine Total 1000 ml # Voids 1 2 # Bowel Movements 1 Height (Feet): 6 Height (Inches): 1.00 Weight (Pounds): 152 Medications Current Medications Medications (Trade) Dose Ordered Sig/Stefania Route PRN Reason Start Time Stop Time Status Last Admin Dose Admin Acetaminophen (Tylenol) 650 mg Q4H PRN ORAL Mild Pain/Temp > 100.5 05/29/16 19:45 06/28/16 19:44 06/03/16 21:08 Acetaminophen/ Hydrocodone Bitart ([place] 5/325) 1 tab Q6H PRN ORAL FOR MODERATE PAIN 05/29/16 19:45 06/05/16 19:44 06/04/16 14:29 Ampicillin/Sodium Chloride (Ampicillin/ Sodium Chloride) 55 ml @ 110 mls/hr EVERY 6 HOURS IVPB 06/02/16 12:00 06/09/16 11:59 06/05/16 05:02 Hydromorphone HCl (Dilaudid) 2 mg Q3H PRN IVP Severe Breakthru Pain (>7) 06/05/16 09:15 06/12/16 09:14 Methocarbamol (Robaxin) 750 mg Q6H PRN ORAL Muscle Spasm 05/29/16 19:45 06/28/16 19:44 06/04/16 20:05 Ondansetron HCl 4 mg 4 mg Q6H PRN IVP Nausea & Vomiting 05/30/16 10:30 06/29/16 10:29 06/05/16 09:06 Oxycodone HCl (OxyCONTIN) 40 mg Q12HR ORAL 06/04/16 21:00 06/11/16 20:59 06/05/16 09:06 Sodium Chloride 1,000 ml @ 100 mls/hr Q10H IV 05/31/16 14:00 06/30/16 13:59 06/05/16 03:37 Assessment/Plan Assessment/Plan (1) Lumbar herniated disc (2) Lumbar radiculopathy (3) S/p Diskectomy (4) Lumbar spine discitis and osteomyelitis (5) Left psoas muscle abscess seen dictated JANNET YAETS Jun 05, 2016 09:47
--- NOTE | 2016-06-05 09:58 | Infectious Diseases Prog Note ---
Assessment/Plan Assessment/Plan A: L4-L5 osteomyelitis Psoas abscess s/p diskectomy Anemia P: Continue Ampicillin in hospital Vancomycin on discharge 35 more days Will f/u cultures Subjective ROS Limited/Unobtainable: No Constitutional: Reports: anorexia Respiratory: Reports: no symptoms Cardiovascular: Reports: no symptoms Gastrointestinal/Abdominal: Reports: no symptoms Neurologic: Reports: no symptoms Musculoskeletal: Reports: other - weakness, pain Allergies: Coded Allergies: No Known Allergies (Unverified , 05/29/16) Objective Vital Signs Last 24 Hour Vital Signs Date Time Temp Pulse Resp B/P Pulse Ox O2 Delivery O2 Flow Rate FiO2 06/05/16 04:00 99.1 77 14 124/78 94 Room Air 06/05/16 00:00 97.9 79 14 122/69 95 Nasal Cannula 2.0 06/04/16 20:35 95.9 76 19 156/89 97 Room Air 06/04/16 16:26 99.1 80 19 134/80 96 Room Air 06/04/16 13:42 98.2 06/04/16 12:00 98.2 68 20 132/81 95 Room Air Height (Feet): 6 Height (Inches): 1.00 Weight (Pounds): 152 General Appearance: no acute distress HEENT: mucous membranes moist Respiratory/Chest: lungs clear Cardiovascular: normal rate, regular rhythm, other - left arm PICC line Extremities: no edema Neurologic/Psychiatric: alert, oriented x 3, responsive Current Medications Medications (Trade) Dose Ordered Sig/Stefania Route PRN Reason Start Time Stop Time Status Last Admin Dose Admin Acetaminophen (Tylenol) 650 mg Q4H PRN ORAL Mild Pain/Temp > 100.5 05/29/16 19:45 06/28/16 19:44 06/03/16 21:08 Acetaminophen/ Hydrocodone Bitart ([place] 5/325) 1 tab Q6H PRN ORAL FOR MODERATE PAIN 05/29/16 19:45 06/05/16 19:44 06/04/16 14:29 Ampicillin/Sodium Chloride (Ampicillin/ Sodium Chloride) 55 ml @ 110 mls/hr EVERY 6 HOURS IVPB 06/02/16 12:00 06/09/16 11:59 06/05/16 05:02 Hydromorphone HCl (Dilaudid) 2 mg Q3H PRN IVP Severe Breakthru Pain (>7) 06/05/16 09:15 06/12/16 09:14 Methocarbamol (Robaxin) 750 mg Q6H PRN ORAL Muscle Spasm 05/29/16 19:45 06/28/16 19:44 06/04/16 20:05 Ondansetron HCl 4 mg 4 mg Q6H PRN IVP Nausea & Vomiting 05/30/16 10:30 06/29/16 10:29 06/05/16 09:06 Oxycodone HCl (OxyCONTIN) 40 mg Q12HR ORAL 06/04/16 21:00 06/11/16 20:59 06/05/16 09:06 Sodium Chloride 1,000 ml @ 100 mls/hr Q10H IV 05/31/16 14:00 06/30/16 13:59 06/05/16 03:37 BING RUSSO Jun 05, 2016 09:58
[2016-06-05] MEDS: Methocarbamol 750mg tab ORAL PRN (16:52)
[2016-06-06] MEDS: Ampicillin 1 GM in NS 55 ML IVPB SCH ×2 (00:11→05:02)
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
[2016-06-06 04:00] VITALS: BP 142/73
[2016-06-06] MEDS: Methocarbamol 750mg tab ORAL PRN (04:44)
[2016-06-06 08:00] VITALS: BP 144/92
[2016-06-06] MEDS: oxyCONTIN 20mg tab ORAL SCH ×2 (08:27→21:26)
--- NOTE | 2016-06-06 08:58 | General Progress Note ---
Assessment/Plan Problem List: (1) Osteomyelitis ICD Codes: M86.9 - Osteomyelitis, unspecified SNOMED: 70518511 (2) Discitis ICD Codes: M46.40 - Discitis, unspecified, site unspecified SNOMED: 7585588 (3) Back abscess ICD Codes: L02.212 - Cutaneous abscess of back [any part, except buttock] SNOMED: 787114284 Status: stable Assessment/Plan iv abx per id pain control per pain management ct spine Subjective ROS Limited/Unobtainable: No Constitutional: Reports: malaise, weakness HEENT: Reports: no symptoms Cardiovascular: Reports: no symptoms Respiratory: Reports: no symptoms Gastrointestinal/Abdominal: Reports: no symptoms Genitourinary: Reports: no symptoms Neurologic/Psychiatric: Reports: no symptoms Endocrine: Reports: no symptoms Hematologic/Lymphatic: Reports: no symptoms Allergies: Coded Allergies: No Known Allergies (Unverified , 05/29/16) All Systems: reviewed and negative except above Subjective no events. c/o pain poorly controlled. no chest pain no sob. no fever or chills. on iv abx. no focal weakness or numbness. pain not well controlled. Objective Last 24 Hour Vital Signs Date Time Temp Pulse Resp B/P Pulse Ox O2 Delivery O2 Flow Rate FiO2 06/06/16 08:00 98.4 88 18 144/92 93 Room Air 06/06/16 04:00 98.1 72 18 142/73 95 Room Air 06/05/16 19:59 99.7 87 19 147/86 98 Room Air 06/05/16 16:52 94 136/72 06/05/16 15:55 98.8 96 18 140/77 93 Room Air 06/05/16 14:21 98.8 06/05/16 13:52 78 20 140/76 06/05/16 12:00 98.8 86 20 128/79 96 Room Air Intake and Output 06/05/16 06/06/16 19:00 07:00 Intake Total 1195 ml 1750 ml Output Total 550 ml 500 ml Balance 645 ml 1250 ml Intake Oral 740 ml IV Total 1195 ml 1010 ml Output Urine Total 550 ml 500 ml # Voids 2 2 Laboratory Tests 06/05/16 10:00: C-Reactive Protein, Quantitative 16.4H Height (Feet): 6 Height (Inches): 1.00 Weight (Pounds): 152 General Appearance: WD/WN, alert Neck: supple Cardiovascular: regular rhythm Respiratory/Chest: lungs clear Abdomen: non tender, soft Edema: no edema noted Arm (L), no edema noted Arm (R), no edema noted Leg (L), no edema noted Leg (R), no edema noted Pedal (L), no edema noted Pedal (R), no edema noted Generalized Neurologic: no motor/sensory deficits SYLVIA RHODES Jun 06, 2016 08:58
--- NOTE | 2016-06-06 10:18 | General Progress Note ---
Assessment/Plan Assessment/Plan (1) Lumbar herniated disc (2) Lumbar radiculopathy (3) S/p Diskectomy (4) Lumbar spine discitis and osteomyelitis (5) Left psoas muscle abscess The patient will be continued on OxyContin, Dilaudid and increase [place] to 10/ 325mg PO 1 tab Q4H PRN moderate pain. We will discontinue Robaxin and start Felxeril and Neurontin. The patient was discussed with Dr. Lovelace and Dr. Lovelace concurred. Subjective Date patient seen: Jun 06, 2016 Time patient seen: 09:15 - am Allergies: Coded Allergies: No Known Allergies (Unverified , 05/29/16) Subjective REVIEW OF SYSTEMS: Denies rash, fever, chills, sweating, dizziness, drowsiness, sore throat, or change in weight. No shortness of breath or chest pain. No blood in the stool or urine. No bowel or bladder incontinence. He is complaining of nausea and low back pain. SUBJECTIVE: Pt continues to c/o pain with pain relief with medications while at rest however with movement pain is aggravated. He also is c/o nausea which may be due to antibiotics. I d/w nurse who will contact ID to possibly change antibiotic. Objective Last 24 Hour Vital Signs Date Time Temp Pulse Resp B/P Pulse Ox O2 Delivery O2 Flow Rate FiO2 06/06/16 08:00 98.4 88 18 144/92 93 Room Air 06/06/16 04:00 98.1 72 18 142/73 95 Room Air 06/05/16 19:59 99.7 87 19 147/86 98 Room Air 06/05/16 16:52 94 136/72 06/05/16 15:55 98.8 96 18 140/77 93 Room Air 06/05/16 14:21 98.8 06/05/16 13:52 78 20 140/76 06/05/16 12:00 98.8 86 20 128/79 96 Room Air Intake and Output 06/05/16 06/06/16 19:00 07:00 Intake Total 1195 ml 1750 ml Output Total 550 ml 500 ml Balance 645 ml 1250 ml Intake Oral 740 ml IV Total 1195 ml 1010 ml Output Urine Total 550 ml 500 ml # Voids 2 2 Height (Feet): 6 Height (Inches): 1.00 Weight (Pounds): 152 Objective PHYSICAL EXAMINATION: GENERAL: Alert, awake, and oriented x3. HEENT: PERRLA. NECK: Range of motion is full in all directions. No tenderness to paracervical muscles. No adenopathy. LUNGS: Clear. HEART: S1 and S2 regular. ABDOMEN: Benign. BACK: Range of motion is decreased in flexion and extension with surgical wound noted with tenderness in the region. Band-Aid was applied. EXTREMITIES: No cyanosis, clubbing or Edema NEURO: No changes JANNET YATES Jun 06, 2016 10:18
--- NOTE | 2016-06-06 11:39 | Infectious Diseases Prog Note ---
"Assessment/Plan Assessment/Plan antibiotics : ampicillin A 1. lumbar discitis | osteomyelitis 2. psoas abscess s/p aspiration with enterococcus 3. s/p lumbar discectomy P 1. d/c iv ampicillin 2. start and continue iv vancomycin 34 more days 3. cbc, bmp, vancomycin level q weekly Subjective Constitutional: Denies: chills, fever Respiratory: Denies: dry cough, shortness of breath Gastrointestinal/Abdominal: Reports: nausea, Denies: diarrhea, vomiting Musculoskeletal: Reports: pain Allergies: Coded Allergies: No Known Allergies (Unverified , 05/29/16) Objective Vital Signs Last 24 Hour Vital Signs Date Time Temp Pulse Resp B/P Pulse Ox O2 Delivery O2 Flow Rate FiO2 06/06/16 08:00 98.4 88 18 144/92 93 Room Air 06/06/16 04:00 98.1 72 18 142/73 95 Room Air 06/05/16 19:59 99.7 87 19 147/86 98 Room Air 06/05/16 16:52 94 136/72 06/05/16 15:55 98.8 96 18 140/77 93 Room Air 06/05/16 14:21 98.8 06/05/16 13:52 78 20 140/76 06/05/16 12:00 98.8 86 20 128/79 96 Room Air Height (Feet): 6 Height (Inches): 1.00 Weight (Pounds): 152 Respiratory/Chest: lungs clear Cardiovascular: normal rate, regular rhythm, no gallop/murmur Abdomen: soft, non tender Extremities: no edema SMITHA YAP Jun 06, 2016 11:39"
[2016-06-06 12:00] VITALS: BP 145/95
--- NOTE | 2016-06-06 12:43 | Diagnostic Imaging Report ---
Indication: L4-5 discitis/osteomyelitis Technique: IV administration nonionic contrast. Venous phase acquisitions obtained through the July. Multiplanar reconstructions were generated. Total dose length product or and 31 mGycm. CTDIvol(s) 11.9 mGy. Radiation dose was minimized using automated exposure control Comparison: Noncontrast study of 06/03/2016 Findings: Again demonstrated is destruction of the inferior endplate of L4, and superior endplate of L5,, as well as a small portions of the adjacent vertebral bodies. There is slight loss of height of the L5 vertebral body, particularly posteriorly. The degree of disc and endplate destruction appears overall similar to the previous study, but there may be slight increase loss of cortex of the inferior L4 endplate anteriorly as compared to the prior exam. There is an enhancing tissue extending along the epidural space posterior to the L5 vertebral. This is less well seen on the noncontrast previous study, but as described on the 2 prior MRI scans. There is a small fluid collection within the posterior medial left psoas muscle which measures approximately 5 mm transverse, 2.2 cm AP, and 2.8 cm craniocaudad. This was previously drained, appears slightly smaller than on prior contrast CT abdomen pelvis of 05/29/2016. There is also decreased swelling of the psoas muscle and inflammation of the surrounding soft tissues. Moderate amount of free fluid is seen within the pelvis, not evident previously At the remaining disc levels, no evidence of significant disc bulge or protrusion, spinal stenosis, or neural foraminal stenosis. No other osseous erosions. The remaining vertebral body heights and disc spaces are preserved. No acute fractures. No dislocations. Impression: Destruction of the superior L5 and inferior L4 endplate, consistent with known discitis osteomyelitis, stable or minimally progressive since prior study 06/03/2016. Associated epidural enhancement posterior to the L5 vertebral body, also described on recent MRI, unchanged from earlier exams Small left psoas abscess, previously described, recently drained, appears smaller than previously but still persistent. There is decreased swelling of the left psoas muscle and inflammation of the stranding soft tissues, consistent with decreased myositis/cellulitis Moderate free pelvic fluid, new since previous study. Not physiologic in a male patient, possibly related to the above The CT scanner at [facility] is accredited by the [employer] and the scans are performed using protocols designed to limit radiation exposure to as low as reasonably achievable to attain images of sufficient resolution adequate for diagnostic evaluation.
[2016-06-06] MEDS: Norco 10mg/325mg tab ORAL PRN ×2 (12:44→16:50)
[2016-06-06] MEDS: Cyclobenzaprine 10mg Tab ORAL PRN (12:44)
--- NOTE | 2016-06-06 12:49 | Diagnostic Imaging Report ---
Indication: Back pain, osteomyelitis Technique: No oral contrast given. IV administration nonionic contrast. Spiral acquisitions obtained through the pelvis. Multiplanar reconstructions generated. Total dose length product 714 mGycm. CTDIvol(s) the mGy Comparison: CT abdomen pelvis 05/29/2016 Findings: Small left psoas fluid collection with peripheral enhancement is again demonstrated, appears slightly smaller on the current exam than on previous. This is crescent-shaped, measures approximately 5 mm thick, 23 mm AP, 20 mm craniocaudad, previously demonstrated to represent a small abscess.. Previously demonstrated gas bubble within it is no longer evident. Swelling of the left psoas muscle has decreased considerably since the previous study, and the inflammation of the fat adjacent to the psoas muscle has likewise decreased. Abnormality of the L4-5 disc and adjacent vertebral bodies is discussed in detail on the accompanying lumbar spine CT report. There is a moderate amount of free pelvic fluid present which is not evident previously. The pelvic viscera are otherwise unremarkable. The bladder is distended. No abnormality of the pelvic bones is evident. Impression: Small left psoas abscess, drainage interim, appears slightly smaller prior exam of 05/29/2016 graph There is markedly decreased swelling of the left psoas muscle and adjacent fat, consistent with improved myositis/cellulitis Moderate free pelvic fluid. Not physiologic in a male patient, possibly related to the above process Evidence of L4-5 discitis/osteomyelitis, also previously described. Please refer to accompanying lumbar spine CT report for further details The CT scanner at [facility] is accredited by the [employer] and the scans are performed using protocols designed to limit radiation exposure to as low as reasonably achievable to attain images of sufficient resolution adequate for diagnostic evaluation.
[2016-06-06] MEDS ORDERED: Vancomycin 1250mg in D5W 275ml IVPB SCH (14:00)
[2016-06-06 16:00] VITALS: BP 139/91
[2016-06-06] MEDS: Vancomycin 1250mg in D5W 275ml IVPB SCH (16:50)
[2016-06-06 20:00] VITALS: BP 118/82
[2016-06-07] VITALS: BP 143/91
[2016-06-07] MEDS: Norco 10mg/325mg tab ORAL PRN ×2 (00:25→11:47)
[2016-06-07] MEDS: Vancomycin 1250mg in D5W 275ml IVPB SCH ×3 (00:26→16:15)
[2016-06-07 04:00] VITALS: BP 133/58
[2016-06-07] MEDS: Cyclobenzaprine 10mg Tab ORAL PRN ×3 (05:37→18:27)
[2016-06-07 08:00] VITALS: BP 137/76
[2016-06-07] MEDS: oxyCONTIN 20mg tab ORAL SCH ×2 (09:02→20:30)
--- NOTE | 2016-06-07 09:03 | General Progress Note ---
Assessment/Plan Problem List: (1) Osteomyelitis ICD Codes: M86.9 - Osteomyelitis, unspecified SNOMED: 90612029 (2) Discitis ICD Codes: M46.40 - Discitis, unspecified, site unspecified SNOMED: 8890834 (3) Back abscess ICD Codes: L02.212 - Cutaneous abscess of back [any part, except buttock] SNOMED: 603996373 Assessment/Plan iv abx per id pain control per pain management pt/ot Subjective ROS Limited/Unobtainable: No Constitutional: Reports: weakness HEENT: Reports: no symptoms Cardiovascular: Reports: no symptoms Respiratory: Reports: no symptoms Gastrointestinal/Abdominal: Reports: no symptoms Genitourinary: Reports: no symptoms Neurologic/Psychiatric: Reports: no symptoms Endocrine: Reports: no symptoms Hematologic/Lymphatic: Reports: no symptoms Allergies: Coded Allergies: No Known Allergies (Unverified , 05/29/16) All Systems: reviewed and negative except above Subjective no events. c/o pain poorly controlled. no chest pain no sob. no fever or chills. ID noted. denies focal weakness or numbness. Objective Last 24 Hour Vital Signs Date Time Temp Pulse Resp B/P Pulse Ox O2 Delivery O2 Flow Rate FiO2 06/07/16 04:00 97.9 92 20 133/58 97 Nasal Cannula 06/07/16 00:00 100.0 97 19 143/91 93 Nasal Cannula 06/06/16 20:00 97.2 74 20 118/82 100 Room Air 06/06/16 16:00 98.4 101 18 139/91 94 Room Air 06/06/16 12:00 98.8 87 19 145/95 94 Room Air Intake and Output 06/06/16 06/07/16 19:00 07:00 Intake Total 955 ml 1007.416 ml Balance 955 ml 1007.416 ml Intake Oral 480 ml 240 ml IV Total 475 ml 767.416 ml # Voids 1 4 Height (Feet): 6 Height (Inches): 1.00 Weight (Pounds): 152 Objective General Appearance: WD/WN, alert Neck: supple Cardiovascular: regular rhythm Respiratory/Chest: lungs clear Abdomen: non tender, soft Edema: no edema noted Arm (L), no edema noted Arm (R), no edema noted Leg (L), no edema noted Leg (R), no edema noted Pedal (L), no edema noted Pedal (R), no edema noted Generalized Neurologic: no motor/sensory deficits SYLVIA RHODES Jun 07, 2016 09:03
--- NOTE | 2016-06-07 11:21 | Infectious Diseases Prog Note ---
"Assessment/Plan Assessment/Plan antibiotics : vancomycin iv A 1. lumbar discitis | osteomyelitis 2. psoas abscess s/p aspiration with enterococcus 3. s/p lumbar discectomy P 1. continue iv vancomycin 33 more days 2. will follow up cultures 3. cbc, bmp, vancomycin level q weekly Subjective Constitutional: Denies: chills, fever Respiratory: Denies: dry cough, shortness of breath Gastrointestinal/Abdominal: Reports: nausea - decreasing, Denies: diarrhea, vomiting Musculoskeletal: Reports: pain - decreasing Allergies: Coded Allergies: No Known Allergies (Unverified , 05/29/16) Objective Vital Signs Last 24 Hour Vital Signs Date Time Temp Pulse Resp B/P Pulse Ox O2 Delivery O2 Flow Rate FiO2 06/07/16 10:31 97.9 06/07/16 08:00 98.2 72 19 137/76 95 Room Air 06/07/16 04:00 97.9 92 20 133/58 97 Nasal Cannula 06/07/16 00:00 100.0 97 19 143/91 93 Nasal Cannula 06/06/16 20:00 97.2 74 20 118/82 100 Room Air 06/06/16 16:00 98.4 101 18 139/91 94 Room Air 06/06/16 12:00 98.8 87 19 145/95 94 Room Air Height (Feet): 6 Height (Inches): 1.00 Weight (Pounds): 152 Respiratory/Chest: lungs clear Cardiovascular: normal rate, regular rhythm, no gallop/murmur Abdomen: soft, non tender, tender - over lumbar spine Extremities: no edema, other - left arm PICC SMITHA YAP Jun 07, 2016 11:20"
[2016-06-07 12:12] VITALS: BP 142/79
[2016-06-07 16:00] VITALS: BP 110/55
[2016-06-07] MEDS: Docusate 100mg cap ORAL SCH (18:21)
[2016-06-07] MEDS ORDERED: Tubing IV Secondary IV ONE (19:01)
[2016-06-07] MEDS ORDERED: 1/2 NS 1000ml IV ONE ×2 (19:01→19:02)
[2016-06-07 20:00] VITALS: BP 149/93
[2016-06-08] VITALS (7 sets, daily range): BP systolic 111–150; BP diastolic 57–106
[2016-06-08] MEDS: Cyclobenzaprine 10mg Tab ORAL PRN ×2 (05:08→13:06)
[2016-06-08 06:40] LABS: CREATININE 1.6 mg/dL (0.7-1.2); GLOMERULAR FILTRATION RATE 52.5 mL/min (>60)
[2016-06-08] MEDS: Milk of Magnesia 30ml Ud ORAL PRN (06:41)
--- NOTE | 2016-06-08 06:47 | General Progress Note ---
Assessment/Plan Problem List: (1) Osteomyelitis ICD Codes: M86.9 - Osteomyelitis, unspecified SNOMED: 65165177 (2) Discitis ICD Codes: M46.40 - Discitis, unspecified, site unspecified SNOMED: 1807824 (3) Back abscess ICD Codes: L02.212 - Cutaneous abscess of back [any part, except buttock] SNOMED: 343571623 Status: stable Assessment/Plan iv abx per id pain control per pain management pt/ot laxatives follow up crp Subjective ROS Limited/Unobtainable: No Constitutional: Reports: malaise, weakness HEENT: Reports: no symptoms Cardiovascular: Reports: no symptoms Respiratory: Reports: no symptoms Gastrointestinal/Abdominal: Reports: constipated Genitourinary: Reports: no symptoms Neurologic/Psychiatric: Reports: no symptoms Endocrine: Reports: no symptoms Hematologic/Lymphatic: Reports: no symptoms Allergies: Coded Allergies: No Known Allergies (Unverified , 05/29/16) All Systems: reviewed and negative except above Subjective no events. c/o constipation. crp ordered per dr brian alexander. low grade temps no sob. no fever or chills. ID noted. denies focal weakness or numbness. Objective Last 24 Hour Vital Signs Date Time Temp Pulse Resp B/P Pulse Ox O2 Delivery O2 Flow Rate FiO2 06/08/16 05:50 99.3 06/08/16 04:00 99.3 85 21 111/57 92 Room Air 06/08/16 01:16 100.4 06/08/16 00:42 100.9 87 19 139/79 93 Room Air 06/07/16 20:00 99.3 88 19 149/93 98 Room Air 06/07/16 16:00 98.6 85 19 110/55 Room Air 99.0 06/07/16 14:10 99.0 06/07/16 12:46 99.0 06/07/16 12:12 99.0 92 18 142/79 94 Room Air 06/07/16 08:00 98.2 72 19 137/76 95 Room Air Intake and Output 06/07/16 06/08/16 19:00 07:00 Intake Total 2675 ml 1740 ml Output Total 0 ml Balance 2675 ml 1740 ml Intake Oral 1200 ml 740 ml IV Total 1475 ml 1000 ml Output Urine Total 0 ml # Voids 2 3 Laboratory Tests 06/07/16 15:30: Vancomycin Level Trough 33.8H 06/08/16 05:00: Creatinine [Pending], Estimat Glomerular Filtration Rate [Pending], C-Reactive Protein, Quantitative [Pending] Height (Feet): 6 Height (Inches): 1.00 Weight (Pounds): 152 Objective General Appearance: WD/WN, alert Neck: supple Cardiovascular: regular rhythm Respiratory/Chest: lungs clear Abdomen: non tender, soft Edema: no edema noted Arm (L), no edema noted Arm (R), no edema noted Leg (L), no edema noted Leg (R), no edema noted Pedal (L), no edema noted Pedal (R), no edema noted Generalized Neurologic: no motor/sensory deficits SYLVIA RHODES Jun 08, 2016 06:47
[2016-06-08 07:55] LABS: MEAN CORPUSCULAR HEMOGLOBIN 30.8 PG (27.0-31.0); MEAN CORPUSCULAR HGB CONC 35.3 G/DL (32.0-36.0); MEAN CORPUSCULAR VOLUME 87 FL (80-99); MEAN PLATELET VOLUME 5.6 FL (6.5-10.1); PLATELET COUNT 170 K/UL (150-450); RED BLOOD COUNT 2.34 M/UL (4.70-6.10); RED CELL DISTRIBUTION WIDTH 10.6 % (11.6-14.8); WHITE BLOOD COUNT 7.1 K/UL (4.8-10.8)
[2016-06-08 07:58] LABS: ALANINE AMINOTRANSFERASE 10 U/L (3-41); ALBUMIN/GLOBULIN RATIO 1.1 (1.0-2.7); ASPARTATE AMINO TRANSFERASE 10 U/L (5-40); CARBON DIOXIDE 19 mEQ/L (20-30); CHLORIDE 104 mEQ/L (98-107); CREATININE 1.1 mg/dL (0.7-1.2); GLOMERULAR FILTRATION RATE > 60 mL/min (>60); HEMOLYSIS 6; SODIUM 141 mEQ/L (135-145); TOTAL PROTEIN 4.2 g/dL (6.6-8.7)
[2016-06-08 08:04] LABS: ANION GAP 18 (5-15)
[2016-06-08 08:09] LABS: CALCIUM 5.5 mg/dL (8.6-10.2); POTASSIUM 2.7 mEQ/L (3.4-4.9)
--- NOTE | 2016-06-08 08:36 | General Progress Note ---
Assessment/Plan Assessment/Plan (1) Lumbar herniated disc (2) Lumbar radiculopathy (3) S/p Diskectomy (4) Lumbar spine discitis and osteomyelitis (5) Left psoas muscle abscess The patient will be continued on OxyContin, Dilaudid, [place], Felxeril and Neurontin. The patient was discussed with Dr. Lovelace and Dr. Lovelace concurred. Subjective Date patient seen: Jun 08, 2016 Time patient seen: 08:00 - am Allergies: Coded Allergies: No Known Allergies (Unverified , 05/29/16) Subjective REVIEW OF SYSTEMS: Denies rash, fever, chills, sweating, dizziness, drowsiness, sore throat, or change in weight. No shortness of breath or chest pain. No blood in the stool or urine. No bowel or bladder incontinence. He is complaining low back pain. SUBJECTIVE: Pain has been well controlled at is at its best a 3/10 at its worst a 7/10. He No longer has severe nausea due to change of antibiotics. Objective Last 24 Hour Vital Signs Date Time Temp Pulse Resp B/P Pulse Ox O2 Delivery O2 Flow Rate FiO2 06/08/16 07:57 98.4 84 18 144/77 94 Room Air 06/08/16 05:50 99.3 06/08/16 04:00 99.3 85 21 111/57 92 Room Air 06/08/16 01:16 100.4 06/08/16 00:42 100.9 87 19 139/79 93 Room Air 06/07/16 20:00 99.3 88 19 149/93 98 Room Air 06/07/16 16:00 98.6 85 19 110/55 Room Air 99.0 06/07/16 14:10 99.0 06/07/16 12:46 99.0 06/07/16 12:12 99.0 92 18 142/79 94 Room Air Intake and Output 06/07/16 06/08/16 19:00 07:00 Intake Total 2675 ml 1740 ml Output Total 0 ml Balance 2675 ml 1740 ml Intake Oral 1200 ml 740 ml IV Total 1475 ml 1000 ml Output Urine Total 0 ml # Voids 2 3 Laboratory Tests 06/07/16 15:30: Vancomycin Level Trough 33.8H 06/08/16 05:00: Sodium Level 141, Potassium Level 2.7*L, Chloride Level 104, Carbon Dioxide Level 19L, Anion Gap 18H, Blood Urea Nitrogen 13, Creatinine 1.1, Estimat Glomerular Filtration Rate > 60, Glucose Level 67L, Calcium Level 5.5*L, Total Bilirubin < 0.2, Aspartate Amino Transf (AST/SGOT) 10, Alanine Aminotransferase (ALT/SGPT) 10, Alkaline Phosphatase 28L, C-Reactive Protein, Quantitative 7.4H, Total Protein 4.2L, Albumin 2.2L, Globulin 2.0, Albumin/Globulin Ratio 1.1 06/08/16 07:00: White Blood Count 7.1, Red Blood Count 2.34L, Hemoglobin 7.2L, Hematocrit 20.4L , Mean Corpuscular Volume 87, Mean Corpuscular Hemoglobin 30.8, Mean Corpuscular Hemoglobin Concent 35.3, Red Cell Distribution Width 10.6L, Platelet Count 170, Mean Platelet Volume 5.6L, Neutrophils (%) (Auto) , Lymphocytes (%) (Auto) , Monocytes (%) (Auto) , Eosinophils (%) (Auto) , Basophils (%) (Auto) , Neutrophils % (Manual) [Pending], Lymphocytes % (Manual) [Pending], Platelet Estimate [Pending], Platelet Morphology [Pending] Height (Feet): 6 Height (Inches): 1.00 Weight (Pounds): 152 Objective PHYSICAL EXAMINATION: GENERAL: Alert, awake, and oriented x3. HEENT: PERRLA. NECK: Range of motion is full in all directions. No tenderness to paracervical muscles. No adenopathy. LUNGS: Clear. HEART: S1 and S2 regular. ABDOMEN: Benign. BACK: Range of motion is decreased in flexion and extension with surgical wound noted with tenderness in the region. Band-Aid was applied. EXTREMITIES: No cyanosis, clubbing or Edema NEURO: No changes JANNET YATES Jun 08, 2016 08:36
[2016-06-08] MEDS: oxyCONTIN 20mg tab ORAL SCH ×2 (09:00→20:31)
[2016-06-08] MEDS: Docusate 100mg cap ORAL SCH ×2 (09:09→18:50)
[2016-06-08 09:29] LABS: BAND NEUTROPHILS % (MANUAL) 0 % (0-8); BASOPHILS % (MANUAL) 0 % (0-2); EOSINOPHILS % (MANUAL) 1 % (0-3); LYMPHOCYTES % (MANUAL) 16 % (20-45); NEUTROPHILS % (MANUAL) 77 % (45-75); PLATELET ESTIMATE ADEQUATE; PLATELET MORPHOLOGY NORMAL; TOTAL CELLS COUNTED 100
[2016-06-08 09:30] LABS: HYPOCHROMASIA 1+
[2016-06-08] MEDS ORDERED: 1/2 NS 1000ml IV ONE (09:41)
[2016-06-08 09:47] LABS: BASOPHILS % (AUTO) 1.8 % (0.0-2.0); EOSINOPHILS % (AUTO) 3.2 % (0.0-3.0); MEAN CORPUSCULAR HEMOGLOBIN 29.9 PG (27.0-31.0); MEAN CORPUSCULAR HGB CONC 34.1 G/DL (32.0-36.0); MEAN CORPUSCULAR VOLUME 88 FL (80-99); MEAN PLATELET VOLUME 5.6 FL (6.5-10.1); MONOCYTES % (AUTO) 10.2 % (1.0-10.0); NEUTROPHILS % (AUTO) 71.7 % (45.0-75.0); PLATELET COUNT 297 K/UL (150-450); RED BLOOD COUNT 3.75 M/UL (4.70-6.10); RED CELL DISTRIBUTION WIDTH 10.7 % (11.6-14.8); WHITE BLOOD COUNT 10.2 K/UL (4.8-10.8)
[2016-06-08 10:28] LABS: ALBUMIN/GLOBULIN RATIO 0.9 (1.0-2.7); CALCIUM 9.4 mg/dL (8.6-10.2); CREATININE 1.7 mg/dL (0.7-1.2); POTASSIUM 4.5 mEQ/L (3.4-4.9); TOTAL PROTEIN 7.1 g/dL (6.6-8.7)
--- NOTE | 2016-06-08 11:19 | Infectious Diseases Prog Note ---
Assessment/Plan Assessment/Plan A: L4-L5 osteomyelitis Psoas abscess s/p diskectomy Anemia Constipation P: Continue IV Vancomycin for 32 more days CBC, BMP, vancomycin level q weekly Subjective ROS Limited/Unobtainable: No Constitutional: Reports: no symptoms Respiratory: Reports: no symptoms Gastrointestinal/Abdominal: Reports: constipation Musculoskeletal: Reports: other - controlled, pain Allergies: Coded Allergies: No Known Allergies (Unverified , 05/29/16) Objective Vital Signs Last 24 Hour Vital Signs Date Time Temp Pulse Resp B/P Pulse Ox O2 Delivery O2 Flow Rate FiO2 06/08/16 07:57 98.4 84 18 144/77 94 Room Air 06/08/16 05:50 99.3 06/08/16 04:00 99.3 85 21 111/57 92 Room Air 06/08/16 01:16 100.4 06/08/16 00:42 100.9 87 19 139/79 93 Room Air 06/07/16 20:00 99.3 88 19 149/93 98 Room Air 06/07/16 16:00 98.6 85 19 110/55 Room Air 99.0 06/07/16 14:10 99.0 06/07/16 12:46 99.0 06/07/16 12:12 99.0 92 18 142/79 94 Room Air Height (Feet): 6 Height (Inches): 1.00 Weight (Pounds): 152 General Appearance: no acute distress HEENT: mucous membranes moist Respiratory/Chest: lungs clear Cardiovascular: normal rate Abdomen: soft, non tender Extremities: no edema Neurologic/Psychiatric: alert, oriented x 3, responsive Laboratory Tests Test 06/07/16 15:30 06/08/16 05:00 06/08/16 07:00 06/08/16 09:00 Vancomycin Level Trough 33.8 ug/mL (5.0-12.0) H Sodium Level 141 mEQ/L (135-145) 137 mEQ/L (135-145) Potassium Level 2.7 mEQ/L (3.4-4.9) *L 4.5 mEQ/L (3.4-4.9) # Chloride Level 104 mEQ/L (98-107) 94 mEQ/L (98-107) L Carbon Dioxide Level 19 mEQ/L (20-30) L 29 mEQ/L (20-30) Anion Gap 18 (5-15) H 14 (5-15) Blood Urea Nitrogen 13 mg/dL (7-23) 18 mg/dL (7-23) Creatinine 1.1 mg/dL (0.7-1.2) 1.7 mg/dL (0.7-1.2) #H Estimat Glomerular Filtration Rate > 60 mL/min (>60) 49.0 mL/min (>60) Glucose Level 67 mg/dL (74-106) L 102 mg/dL (74-106) Calcium Level 5.5 mg/dL (8.6-10.2) *L 9.4 mg/dL (8.6-10.2) # Total Bilirubin < 0.2 mg/dL (0.0-1.2) 0.3 mg/dL (0.0-1.2) Aspartate Amino Transf (AST/SGOT) 10 U/L (5-40) 16 U/L (5-40) Alanine Aminotransferase (ALT/SGPT) 10 U/L (3-41) 16 U/L (3-41) Alkaline Phosphatase 28 U/L (40-129) L 50 U/L (40-129) C-Reactive Protein, Quantitative 7.4 mg/dL (< 0.5) H Total Protein 4.2 g/dL (6.6-8.7) L 7.1 g/dL (6.6-8.7) # Albumin 2.2 g/dL (3.5-5.2) L 3.4 g/dL (3.5-5.2) L Globulin 2.0 g/dL 3.7 g/dL Albumin/Globulin Ratio 1.1 (1.0-2.7) 0.9 (1.0-2.7) L White Blood Count 7.1 K/UL (4.8-10.8) 10.2 K/UL (4.8-10.8) Red Blood Count 2.34 M/UL (4.70-6.10) L 3.75 M/UL (4.70-6.10) L Hemoglobin 7.2 G/DL (14.2-18.0) L 11.2 G/DL (14.2-18.0) #L Hematocrit 20.4 % (42.0-52.0) L 32.9 % (42.0-52.0) #L Mean Corpuscular Volume 87 FL (80-99) 88 FL (80-99) Mean Corpuscular Hemoglobin 30.8 PG (27.0-31.0) 29.9 PG (27.0-31.0) Mean Corpuscular Hemoglobin Concent 35.3 G/DL (32.0-36.0) 34.1 G/DL (32.0-36.0) Red Cell Distribution Width 10.6 % (11.6-14.8) L 10.7 % (11.6-14.8) L Platelet Count 170 K/UL (150-450) 297 K/UL (150-450) # Mean Platelet Volume 5.6 FL (6.5-10.1) L 5.6 FL (6.5-10.1) L Neutrophils (%) (Auto) % (45.0-75.0) 71.7 % (45.0-75.0) Lymphocytes (%) (Auto) % (20.0-45.0) 13.0 % (20.0-45.0) L Monocytes (%) (Auto) % (1.0-10.0) 10.2 % (1.0-10.0) H Eosinophils (%) (Auto) % (0.0-3.0) 3.2 % (0.0-3.0) H Basophils (%) (Auto) % (0.0-2.0) 1.8 % (0.0-2.0) Differential Total Cells Counted 100 Neutrophils % (Manual) 77 % (45-75) H Lymphocytes % (Manual) 16 % (20-45) L Monocytes % (Manual) 6 % (1-10) Eosinophils % (Manual) 1 % (0-3) Basophils % (Manual) 0 % (0-2) Band Neutrophils 0 % (0-8) Platelet Estimate Adequate Platelet Morphology Normal Hypochromasia 1+ Current Medications Medications (Trade) Dose Ordered Sig/Stefania Route PRN Reason Start Time Stop Time Status Last Admin Dose Admin Acetaminophen (Tylenol) 650 mg Q4H PRN ORAL Mild Pain/Temp > 100.5 05/29/16 19:45 06/28/16 19:44 06/08/16 00:17 Acetaminophen/ Hydrocodone Bitart ([place] 10/325) 1 ea Q4H PRN ORAL Moderate Pain (Pain Scale 4-6) 06/06/16 10:30 06/13/16 10:29 06/07/16 11:47 Bisacodyl (Dulcolax) 10 mg DAILYPRN PRN RECTAL Constipation 06/07/16 19:00 07/07/16 18:59 Cyclobenzaprine HCl (Flexeril) 10 mg THREE TIMES A DAY PRN ORAL muscle spasm 06/06/16 10:30 07/06/16 10:29 06/07/16 18:27 Docusate Sodium (Colace) 100 mg TWICE A DAY ORAL 06/07/16 19:00 07/07/16 18:59 06/08/16 09:09 Gabapentin (Neurontin) 300 mg THREE TIMES A DAY ORAL 06/06/16 10:30 07/06/16 10:29 06/08/16 09:09 Hydromorphone HCl (Dilaudid) 2 mg Q3H PRN IVP Severe Breakthru Pain (>7) 06/05/16 09:15 06/12/16 09:14 06/08/16 09:11 Magnesium Hydroxide (Mom) 30 ml DAILYPRN PRN ORAL Constipation 06/07/16 19:00 07/07/16 18:59 06/08/16 06:41 Ondansetron HCl 4 mg 4 mg Q6H PRN IVP Nausea & Vomiting 05/30/16 10:30 06/29/16 10:29 06/06/16 16:50 Oxycodone HCl (OxyCONTIN) 40 mg Q12HR ORAL 06/04/16 21:00 06/11/16 20:59 06/07/16 20:30 Polyethylene Glycol (Miralax) 17 gm BEDTIME ORAL 06/08/16 21:00 07/08/16 20:59 Sodium Chloride (0.45% NS 1000ml) 1,000 ml @ 100 mls/hr Q10H IV 05/31/16 14:00 06/30/16 13:59 06/08/16 02:00 Vancomycin HCl (Vanco rx to dose) 1 ea DAILY PRN MISC Per rx protocol 06/06/16 11:00 07/06/16 10:59 BING RUSSO Jun 08, 2016 11:19
[2016-06-08] MEDS: Norco 10mg/325mg tab ORAL PRN (15:13)
[2016-06-08] MEDS ORDERED: Vancomycin 1 GM in NS 275 ML IVPB ONE (20:00)
[2016-06-08] MEDS: Miralax 17gm pkt ORAL SCH (20:30)
[2016-06-09 04:00] VITALS: BP 154/94
[2016-06-09] MEDS: Cyclobenzaprine 10mg Tab ORAL PRN (05:56)
[2016-06-09 07:23] LABS: ALBUMIN/GLOBULIN RATIO 1.1 (1.0-2.7); CALCIUM 9.5 mg/dL (8.6-10.2); CREATININE 1.9 mg/dL (0.7-1.2); GLOMERULAR FILTRATION RATE 43.1 mL/min (>60); POTASSIUM 4.7 mEQ/L (3.4-4.9)
[2016-06-09] MEDS: Norco 10mg/325mg tab ORAL PRN (07:32)
[2016-06-09 08:00] VITALS: BP 151/95
--- NOTE | 2016-06-09 08:31 | General Progress Note ---
Assessment/Plan Assessment/Plan (1) Lumbar herniated disc (2) Lumbar radiculopathy (3) S/p Diskectomy (4) Lumbar spine discitis and osteomyelitis (5) Left psoas muscle abscess The patient will be continued on OxyContin, Dilaudid and [place]. We will discontinue Felxeril and start Baclofen and Lactulose. The patient was discussed with Dr. Lovelace and Dr. Lovelace concurred. Subjective Date patient seen: Jun 09, 2016 Time patient seen: 07:30 Allergies: Coded Allergies: No Known Allergies (Unverified , 05/29/16) Subjective REVIEW OF SYSTEMS: Denies rash, fever, chills, sweating, dizziness, drowsiness, sore throat, or change in weight. No shortness of breath or chest pain. No blood in the stool or urine. No bowel or bladder incontinence. He is complaining low back pain and constipation SUBJECTIVE: Pt is having constipation and says that he is having spams not reduced on the flexeril. Objective Last 24 Hour Vital Signs Date Time Temp Pulse Resp B/P Pulse Ox O2 Delivery O2 Flow Rate FiO2 06/09/16 06:48 98.2 06/09/16 05:45 98.2 06/09/16 04:00 97.9 92 20 154/94 98 Room Air 06/08/16 20:00 98.2 99 19 148/90 92 Room Air 06/08/16 16:53 150/96 06/08/16 16:03 98.4 106 20 147/106 97 Room Air 06/08/16 12:00 98.2 86 18 124/82 96 Room Air Intake and Output 06/08/16 06/09/16 19:00 07:00 Intake Total 1000 ml 940 ml Output Total 450 ml Balance 1000 ml 490 ml Intake Oral 600 ml 240 ml IV Total 400 ml 700 ml Output Urine Total 450 ml # Voids 5 Laboratory Tests 06/08/16 09:00: White Blood Count 10.2, Red Blood Count 3.75L, Hemoglobin 11.2#L, Hematocrit 32.9#L, Mean Corpuscular Volume 88, Mean Corpuscular Hemoglobin 29.9, Mean Corpuscular Hemoglobin Concent 34.1, Red Cell Distribution Width 10.7L, Platelet Count 297#, Mean Platelet Volume 5.6L, Neutrophils (%) (Auto) 71.7, Lymphocytes (%) (Auto) 13.0L, Monocytes (%) (Auto) 10.2H, Eosinophils (%) (Auto ) 3.2H, Basophils (%) (Auto) 1.8, Sodium Level 137, Potassium Level 4.5#, Chloride Level 94L, Carbon Dioxide Level 29, Anion Gap 14, Blood Urea Nitrogen 18, Creatinine 1.7#H, Estimat Glomerular Filtration Rate 49.0, Glucose Level 102 , Calcium Level 9.4#, Total Bilirubin 0.3, Aspartate Amino Transf (AST/SGOT) 16 , Alanine Aminotransferase (ALT/SGPT) 16, Alkaline Phosphatase 50, Total Protein 7.1#, Albumin 3.4L, Globulin 3.7, Albumin/Globulin Ratio 0.9L 06/08/16 16:00: Random Vancomycin Level 17.3 06/09/16 06:10: Sodium Level 140, Potassium Level 4.7, Chloride Level 95L, Carbon Dioxide Level 31H, Anion Gap 14, Blood Urea Nitrogen 21, Creatinine 1.9H, Estimat Glomerular Filtration Rate 43.1, Glucose Level 90, Calcium Level 9.5, Total Bilirubin 0.5, Aspartate Amino Transf (AST/SGOT) 21, Alanine Aminotransferase (ALT/SGPT) 18, Alkaline Phosphatase 47, Total Protein 7.0, Albumin 3.7, Globulin 3.3, Albumin/ Globulin Ratio 1.1 Height (Feet): 6 Height (Inches): 1.00 Weight (Pounds): 152 Objective PHYSICAL EXAMINATION: GENERAL: Alert, awake, and oriented x3. HEENT: PERRLA. NECK: Range of motion is full in all directions. No tenderness to paracervical muscles. No adenopathy. LUNGS: Clear. HEART: S1 and S2 regular. ABDOMEN: Benign. BACK: Range of motion is decreased in flexion and extension with surgical wound noted with tenderness in the region. Band-Aid was applied. EXTREMITIES: No cyanosis, clubbing or Edema NEURO: No changes JANNET YATES Jun 09, 2016 08:31
[2016-06-09] MEDS: Docusate 100mg cap ORAL SCH ×2 (08:40→17:09)
[2016-06-09] MEDS: oxyCONTIN 20mg tab ORAL SCH ×3 (08:40→21:25)
[2016-06-09] MEDS: Lactulose 20gm/30ml UDC ORAL PRN ×2 (10:32→17:57)
--- NOTE | 2016-06-09 11:11 | Infectious Diseases Prog Note ---
"Assessment/Plan Assessment/Plan antibiotics : vancomycin iv A 1. lumbar discitis | osteomyelitis 2. psoas abscess s/p aspiration with enterococcus 3. s/p lumbar discectomy 4. renal failure P 1. d/c iv vancomycin 2. start linezolid, continue iv 31 more days 2. will follow up cultures 3. cbc, bmp, lft q weekly Subjective Constitutional: Denies: chills, fever Respiratory: Denies: dry cough, shortness of breath Gastrointestinal/Abdominal: Denies: diarrhea, nausea, vomiting Musculoskeletal: Reports: pain - back Allergies: Coded Allergies: No Known Allergies (Unverified , 05/29/16) Objective Vital Signs Last 24 Hour Vital Signs Date Time Temp Pulse Resp B/P Pulse Ox O2 Delivery O2 Flow Rate FiO2 06/09/16 08:00 99.1 71 20 151/95 96 Room Air 06/09/16 06:48 98.2 06/09/16 05:45 98.2 06/09/16 04:00 97.9 92 20 154/94 98 Room Air 06/08/16 20:00 98.2 99 19 148/90 92 Room Air 06/08/16 16:53 150/96 06/08/16 16:03 98.4 106 20 147/106 97 Room Air 06/08/16 12:00 98.2 86 18 124/82 96 Room Air Height (Feet): 6 Height (Inches): 1.00 Weight (Pounds): 152 Respiratory/Chest: lungs clear Cardiovascular: normal rate, regular rhythm, no gallop/murmur Abdomen: soft, non tender, other - back in dressings Extremities: no edema, other - left arm PICC Laboratory Tests Test 06/08/16 16:00 06/09/16 06:10 Random Vancomycin Level 17.3 ug/mL Sodium Level 140 mEQ/L (135-145) Potassium Level 4.7 mEQ/L (3.4-4.9) Chloride Level 95 mEQ/L (98-107) L Carbon Dioxide Level 31 mEQ/L (20-30) H Anion Gap 14 (5-15) Blood Urea Nitrogen 21 mg/dL (7-23) Creatinine 1.9 mg/dL (0.7-1.2) H Estimat Glomerular Filtration Rate 43.1 mL/min (>60) Glucose Level 90 mg/dL (74-106) Calcium Level 9.5 mg/dL (8.6-10.2) Total Bilirubin 0.5 mg/dL (0.0-1.2) Aspartate Amino Transf (AST/SGOT) 21 U/L (5-40) Alanine Aminotransferase (ALT/SGPT) 18 U/L (3-41) Alkaline Phosphatase 47 U/L (40-129) Total Protein 7.0 g/dL (6.6-8.7) Albumin 3.7 g/dL (3.5-5.2) Globulin 3.3 g/dL Albumin/Globulin Ratio 1.1 (1.0-2.7) SMITHA YAP Jun 09, 2016 11:10"
--- NOTE | 2016-06-09 11:37 | General Progress Note ---
Assessment/Plan Problem List: (1) Osteomyelitis ICD Codes: M86.9 - Osteomyelitis, unspecified SNOMED: 83527018 (2) Discitis ICD Codes: M46.40 - Discitis, unspecified, site unspecified SNOMED: 9222113 (3) Back abscess ICD Codes: L02.212 - Cutaneous abscess of back [any part, except buttock] SNOMED: 847697817 Status: stable Assessment/Plan iv abx per id pain control per pain management pt/ot laxatives recommend head ct- pt declined dc planning to snf per Dr torres Subjective ROS Limited/Unobtainable: No Constitutional: Reports: malaise, weakness HEENT: Reports: no symptoms Cardiovascular: Reports: no symptoms Respiratory: Reports: no symptoms Gastrointestinal/Abdominal: Reports: no symptoms Genitourinary: Reports: no symptoms Neurologic/Psychiatric: Reports: no symptoms Endocrine: Reports: no symptoms Hematologic/Lymphatic: Reports: no symptoms Allergies: Coded Allergies: No Known Allergies (Unverified , 05/29/16) All Systems: reviewed and negative except above Subjective no events. same back pain. ?visual problems no headaches. denies weakness or numbness Objective Last 24 Hour Vital Signs Date Time Temp Pulse Resp B/P Pulse Ox O2 Delivery O2 Flow Rate FiO2 06/09/16 08:00 99.1 71 20 151/95 96 Room Air 06/09/16 06:48 98.2 06/09/16 05:45 98.2 06/09/16 04:00 97.9 92 20 154/94 98 Room Air 06/08/16 20:00 98.2 99 19 148/90 92 Room Air 06/08/16 16:53 150/96 06/08/16 16:03 98.4 106 20 147/106 97 Room Air 06/08/16 12:00 98.2 86 18 124/82 96 Room Air Intake and Output 06/08/16 06/09/16 19:00 07:00 Intake Total 1000 ml 940 ml Output Total 450 ml Balance 1000 ml 490 ml Intake Oral 600 ml 240 ml IV Total 400 ml 700 ml Output Urine Total 450 ml # Voids 5 Laboratory Tests 06/08/16 16:00: Random Vancomycin Level 17.3 06/09/16 06:10: Sodium Level 140, Potassium Level 4.7, Chloride Level 95L, Carbon Dioxide Level 31H, Anion Gap 14, Blood Urea Nitrogen 21, Creatinine 1.9H, Estimat Glomerular Filtration Rate 43.1, Glucose Level 90, Calcium Level 9.5, Total Bilirubin 0.5, Aspartate Amino Transf (AST/SGOT) 21, Alanine Aminotransferase (ALT/SGPT) 18, Alkaline Phosphatase 47, Total Protein 7.0, Albumin 3.7, Globulin 3.3, Albumin/ Globulin Ratio 1.1 Height (Feet): 6 Height (Inches): 1.00 Weight (Pounds): 152 Objective General Appearance: WD/WN, alert Neck: supple Cardiovascular: regular rhythm Respiratory/Chest: lungs clear Abdomen: non tender, soft Edema: no edema noted Arm (L), no edema noted Arm (R), no edema noted Leg (L), no edema noted Leg (R), no edema noted Pedal (L), no edema noted Pedal (R), no edema noted Generalized Neurologic: no motor/sensory deficits SYLVIA RHODES Jun 09, 2016 11:37
[2016-06-09 12:00] VITALS: BP 134/76
[2016-06-09] MEDS: Linezolid 600mg/300ml (Pre-Mix) IVPB SCH ×2 (13:19→20:06)
[2016-06-09] MEDS ORDERED: 1/2 NS 1000ml IV ONE (15:55)
[2016-06-09 16:03] VITALS: BP 138/93
[2016-06-09] MEDS: Miralax 17gm pkt ORAL SCH ×2 (20:11→21:25)
[2016-06-09 20:18] VITALS: BP 130/70
[2016-06-10] VITALS (7 sets, daily range): BP systolic 126–148; BP diastolic 70–89
--- NOTE | 2016-06-10 08:43 | General Progress Note ---
Assessment/Plan Problem List: (1) Osteomyelitis ICD Codes: M86.9 - Osteomyelitis, unspecified SNOMED: 89967912 (2) Discitis ICD Codes: M46.40 - Discitis, unspecified, site unspecified SNOMED: 1547035 (3) Back abscess ICD Codes: L02.212 - Cutaneous abscess of back [any part, except buttock] SNOMED: 421245902 Status: stable Assessment/Plan iv abx per id pain control per pain management pt/ot laxatives follow up cdiff ivf adjusted renal eval called follow up labs recommend head ct- pt declined dc planning to snf per Dr torres Subjective ROS Limited/Unobtainable: No Constitutional: Reports: malaise, weakness HEENT: Reports: no symptoms Cardiovascular: Reports: no symptoms Respiratory: Reports: no symptoms Gastrointestinal/Abdominal: Reports: diarrhea Genitourinary: Reports: no symptoms Neurologic/Psychiatric: Reports: no symptoms Endocrine: Reports: no symptoms Hematologic/Lymphatic: Reports: no symptoms Allergies: Coded Allergies: No Known Allergies (Unverified , 05/29/16) All Systems: reviewed and negative except above Subjective still with pain but a "little better" renal function trending up no chest pain or sob no weakness or numbness Objective Last 24 Hour Vital Signs Date Time Temp Pulse Resp B/P Pulse Ox O2 Delivery O2 Flow Rate FiO2 06/10/16 08:00 98.8 75 20 147/70 97 Room Air 06/10/16 06:18 99.5 06/10/16 03:32 99.5 92 19 140/84 95 Room Air 06/10/16 00:00 99.6 91 18 146/72 95 Room Air 06/09/16 20:18 98.1 90 19 130/70 95 Room Air 06/09/16 16:03 97.7 112 18 138/93 94 Room Air 06/09/16 12:00 99.7 84 20 134/76 98 Room Air Intake and Output 06/09/16 06/10/16 19:00 07:00 Intake Total 1420 ml 1720 ml Balance 1420 ml 1720 ml Intake Oral 1020 ml 620 ml IV Total 400 ml 1100 ml # Voids 2 5 # Bowel Movements 1 Height (Feet): 6 Height (Inches): 1.00 Weight (Pounds): 152 Objective General Appearance: WD/WN, alert Neck: supple Cardiovascular: regular rhythm Respiratory/Chest: lungs clear Abdomen: non tender, soft Edema: no edema noted Arm (L), no edema noted Arm (R), no edema noted Leg (L), no edema noted Leg (R), no edema noted Pedal (L), no edema noted Pedal (R), no edema noted Generalized Neurologic: no motor/sensory deficits SYLVIA RHODES Jun 10, 2016 08:43
[2016-06-10] MEDS ORDERED: LORazepam Inj 2mg/ml 1ml IV ONE (09:00)
[2016-06-10] MEDS: oxyCONTIN 20mg tab ORAL SCH ×2 (09:01→21:00)
[2016-06-10] MEDS: Docusate 100mg cap ORAL SCH ×2 (09:02→18:15)
--- NOTE | 2016-06-10 09:04 | General Progress Note ---
Assessment/Plan Assessment/Plan (1) Lumbar herniated disc (2) Lumbar radiculopathy (3) S/p Diskectomy (4) Lumbar spine discitis and osteomyelitis (5) Left psoas muscle abscess The patient will be continued on Lactulose OxyContin, Dilaudid and [place]. We will increase Baclofen to 20mg and Neurontin to 600mg. The patient was discussed with Dr. Lovelace and Dr. Lovelace concurred. Subjective Date patient seen: Jun 10, 2016 Time patient seen: 07:45 - am Allergies: Coded Allergies: No Known Allergies (Unverified , 05/29/16) Subjective REVIEW OF SYSTEMS: Denies rash, fever, chills, sweating, dizziness, drowsiness, sore throat, or change in weight. No shortness of breath or chest pain. No blood in the stool or urine. No bowel or bladder incontinence. He is complaining low back pain and constipation SUBJECTIVE: He is in bed c/o severe pain and is waiting for his medications to be administered. Objective Last 24 Hour Vital Signs Date Time Temp Pulse Resp B/P Pulse Ox O2 Delivery O2 Flow Rate FiO2 06/10/16 08:00 98.8 75 20 147/70 97 Room Air 06/10/16 06:18 99.5 06/10/16 03:32 99.5 92 19 140/84 95 Room Air 06/10/16 00:00 99.6 91 18 146/72 95 Room Air 06/09/16 20:18 98.1 90 19 130/70 95 Room Air 06/09/16 16:03 97.7 112 18 138/93 94 Room Air 06/09/16 12:00 99.7 84 20 134/76 98 Room Air Intake and Output 06/09/16 06/10/16 19:00 07:00 Intake Total 1420 ml 1720 ml Balance 1420 ml 1720 ml Intake Oral 1020 ml 620 ml IV Total 400 ml 1100 ml # Voids 2 5 # Bowel Movements 1 Height (Feet): 6 Height (Inches): 1.00 Weight (Pounds): 152 Objective PHYSICAL EXAMINATION: GENERAL: Alert, awake, and oriented x3. HEENT: PERRLA. NECK: Range of motion is full in all directions. No tenderness to paracervical muscles. No adenopathy. LUNGS: Clear. HEART: S1 and S2 regular. ABDOMEN: Benign. BACK: Range of motion is decreased in flexion and extension with surgical wound noted with tenderness in the region. Band-Aid was applied. EXTREMITIES: No cyanosis, clubbing or Edema NEURO: No changes JANNET YATES Jun 10, 2016 09:04
[2016-06-10] MEDS: Linezolid 600mg/300ml (Pre-Mix) IVPB SCH ×2 (09:10→21:48)
[2016-06-10] MEDS: Lactulose 20gm/30ml UDC ORAL PRN (09:10)
[2016-06-10 09:48] LABS: CALCIUM 9.7 mg/dL (8.6-10.2); CREATININE 1.7 mg/dL (0.7-1.2); POTASSIUM 4.8 mEQ/L (3.4-4.9)
--- NOTE | 2016-06-10 11:00 | Infectious Diseases Prog Note ---
"Assessment/Plan Assessment/Plan antibiotics : linezolid iv A 1. lumbar discitis | osteomyelitis 2. psoas abscess s/p aspiration with enterococcus 3. s/p lumbar discectomy 4. renal failure improving P 1. continue linezolid 30 more days 2. will follow up cultures 3. cbc, bmp, lft q weekly Subjective Constitutional: Denies: chills, fever Respiratory: Denies: dry cough, shortness of breath Gastrointestinal/Abdominal: Denies: diarrhea, nausea, vomiting Musculoskeletal: Reports: pain - back Allergies: Coded Allergies: No Known Allergies (Unverified , 05/29/16) Objective Vital Signs Last 24 Hour Vital Signs Date Time Temp Pulse Resp B/P Pulse Ox O2 Delivery O2 Flow Rate FiO2 06/10/16 08:00 98.8 75 20 147/70 97 Room Air 06/10/16 06:18 99.5 06/10/16 03:32 99.5 92 19 140/84 95 Room Air 06/10/16 00:00 99.6 91 18 146/72 95 Room Air 06/09/16 20:18 98.1 90 19 130/70 95 Room Air 06/09/16 16:03 97.7 112 18 138/93 94 Room Air 06/09/16 12:00 99.7 84 20 134/76 98 Room Air Height (Feet): 6 Height (Inches): 1.00 Weight (Pounds): 152 Respiratory/Chest: lungs clear Cardiovascular: normal rate, regular rhythm, no gallop/murmur Abdomen: soft, non tender, other - back in dressings Extremities: no edema, other - left arm PICC Laboratory Tests Test 06/10/16 09:15 06/10/16 10:00 Sodium Level 139 mEQ/L (135-145) Potassium Level 4.8 mEQ/L (3.4-4.9) Chloride Level 94 mEQ/L (98-107) L Carbon Dioxide Level 30 mEQ/L (20-30) Anion Gap 15 (5-15) Blood Urea Nitrogen 18 mg/dL (7-23) Creatinine 1.7 mg/dL (0.7-1.2) H Estimat Glomerular Filtration Rate 49.0 mL/min (>60) Glucose Level 100 mg/dL (74-106) Calcium Level 9.7 mg/dL (8.6-10.2) Total Bilirubin 0.3 mg/dL (0.0-1.2) Aspartate Amino Transf (AST/SGOT) 17 U/L (5-40) Alanine Aminotransferase (ALT/SGPT) 16 U/L (3-41) Alkaline Phosphatase 45 U/L (40-129) Total Protein 7.0 g/dL (6.6-8.7) Albumin 3.6 g/dL (3.5-5.2) Globulin 3.4 g/dL Albumin/Globulin Ratio 1.0 (1.0-2.7) Urine Eosinophils Pending Urine Random Sodium Pending SMITHA YAP Jun 10, 2016 11:00"
[2016-06-10] MEDS: Norco 10mg/325mg tab ORAL PRN (16:11)
[2016-06-10] MEDS: Miralax 17gm pkt ORAL SCH (21:48)
--- NOTE | 2016-06-10 21:48 | Consultation ---
DATE OF CONSULTATION: 06/10/2016 NEPHROLOGY CONSULTATION CONSULTING PHYSICIAN: Mary Villareal M.D. REFERRING PHYSICIAN: Gurmeet Persaud M.D. REASON FOR CONSULTATION: Elevated BUN and creatinine. HISTORY OF PRESENT ILLNESS: This is a 26-year-old male, who was admitted to the hospital on 05/29/[address] Hassan, with lumbosacral diskitis. The patient was started with empiric treatment and then IV antibiotics. The patient developed a psoas abscess. It was noted that his BUN and creatinine were rising during the last several days. On 06/08/2016, his creatinine was 1.1; on 06/08/2016, 1.7; on 06/09/2016, 1.9; and today, 1.7. BUN remained relatively stable, on 06/08/2016, 13 and today 18. Of note is that the patient had several CT scans with contrast. Urine is relatively bland. MEDICATION: I reviewed the patient's medication list. Current medication list includes IV fluid, linezolid, Tylenol, baclofen, bisacodyl, docusate sodium, gabapentin, [place], lactulose, lorazepam, milk of magnesia, and oxycodone p.r.n. ALLERGIES: No known drug allergies. FAMILY HISTORY: Unremarkable. SOCIAL HISTORY: He lives at home. HABITS: He is nonsmoker and nondrinker. There is no history of illicit drug abuse. PHYSICAL EXAMINATION: GENERAL: This is a young male, who is in no acute distress. VITAL SIGNS: Blood pressure 140/84, pulse , respirations of 20, and temperature 98.6. HEENT: The head is normocephalic and atraumatic. Pupils are equal, round, and reactive to light and accommodation consensually. NECK: Supple. Trachea midline. There was no lymphadenopathy or thyromegaly. LUNGS: Clear to auscultation and percussion. HEART: Regular rate and rhythm without rubs, murmurs, or gallops. ABDOMEN: Soft and nontender. Bowel sounds were active. EXTREMITIES: No clubbing, cyanosis, or edema. NEUROLOGICAL: He is alert and oriented x4. Cranial nerves II through XII are intact. LABORATORY AND ANCILLARY DATA: As reviewed above. ASSESSMENT: Mild contrast-induced acute kidney injury, resolving. PLAN: Continue current therapy. Thank you, Dr. Persaud, for letting me to participate in the care of this patient. Mary Villareal M.D. DR: RADHA JOB#: [id number] CC:
[2016-06-11 04:00] VITALS: BP 140/85
[2016-06-11 07:25] LABS: ALBUMIN/GLOBULIN RATIO 0.9 (1.0-2.7); CALCIUM 9.5 mg/dL (8.6-10.2); CREATININE 1.6 mg/dL (0.7-1.2); GLOMERULAR FILTRATION RATE 52.5 mL/min (>60); POTASSIUM 4.4 mEQ/L (3.4-4.9); TOTAL PROTEIN 6.9 g/dL (6.6-8.7)
[2016-06-11 08:00] VITALS: BP 129/74
--- NOTE | 2016-06-11 08:05 | General Progress Note ---
Assessment/Plan Assessment/Plan (1) Lumbar herniated disc (2) Lumbar radiculopathy (3) S/p Diskectomy (4) Lumbar spine discitis and osteomyelitis (5) Left psoas muscle abscess The patient will be continued on Lactulose, OxyContin, Dilaudid, [place], Baclofen and Neurontin. The patient was discussed with Dr. Lovelace and Dr. Lovelace concurred. Subjective Date patient seen: Jun 11, 2016 Time patient seen: 08:30 - am Allergies: Coded Allergies: No Known Allergies (Unverified , 05/29/16) Subjective REVIEW OF SYSTEMS: Denies rash, fever, chills, sweating, dizziness, drowsiness, sore throat, or change in weight. No shortness of breath or chest pain. No blood in the stool or urine. No bowel or bladder incontinence. He is complaining low back pain and constipation SUBJECTIVE: Pain has been better today and spasms have reduced with increased medication. He still has severe pain with movement and it has been tolerated on the Oxycontin and Dilaudid. Objective Last 24 Hour Vital Signs Date Time Temp Pulse Resp B/P Pulse Ox O2 Delivery O2 Flow Rate FiO2 06/11/16 04:00 98.2 77 20 140/85 97 Room Air 06/10/16 22:00 99.0 99 17 148/89 Room Air 06/10/16 22:00 99.0 99 17 148/89 Room Air 06/10/16 20:00 99.0 99 17 148/89 Room Air 06/10/16 16:00 98.2 96 18 126/72 94 Room Air 06/10/16 14:27 98.6 06/10/16 14:27 98.6 06/10/16 14:27 98.6 06/10/16 12:16 98.6 98 20 140/84 97 Room Air Intake and Output 06/10/16 06/11/16 19:00 07:00 Intake Total 1795 ml 1560 ml Output Total 1 ml Balance 1795 ml 1559 ml Intake Oral 720 ml 360 ml IV Total 1075 ml 1200 ml Emesis 1 ml # Voids 2 3 Laboratory Tests 06/10/16 09:15: Sodium Level 139, Potassium Level 4.8, Chloride Level 94L, Carbon Dioxide Level 30, Anion Gap 15, Blood Urea Nitrogen 18, Creatinine 1.7H, Estimat Glomerular Filtration Rate 49.0, Glucose Level 100, Calcium Level 9.7, Total Bilirubin 0.3 , Aspartate Amino Transf (AST/SGOT) 17, Alanine Aminotransferase (ALT/SGPT) 16, Alkaline Phosphatase 45, Total Protein 7.0, Albumin 3.6, Globulin 3.4, Albumin/ Globulin Ratio 1.0 06/10/16 10:00: Urine Eosinophils None seen, Urine Random Sodium 44 06/11/16 06:15: Sodium Level 144, Potassium Level 4.4, Chloride Level 101, Carbon Dioxide Level 27, Anion Gap 16H, Blood Urea Nitrogen 16, Creatinine 1.6H, Estimat Glomerular Filtration Rate 52.5, Glucose Level 94, Calcium Level 9.5, Total Bilirubin 0.3, Aspartate Amino Transf (AST/SGOT) 16, Alanine Aminotransferase (ALT/SGPT) 14, Alkaline Phosphatase 45, Total Protein 6.9, Albumin 3.4L, Globulin 3.5, Albumin/ Globulin Ratio 0.9L Height (Feet): 6 Height (Inches): 1.00 Weight (Pounds): 152 Objective PHYSICAL EXAMINATION: GENERAL: Alert, awake, and oriented x3. HEENT: PERRLA. NECK: Range of motion is full in all directions. No tenderness to paracervical muscles. No adenopathy. LUNGS: Clear. HEART: S1 and S2 regular. ABDOMEN: Benign. BACK: Range of motion is decreased in flexion and extension with surgical wound noted with tenderness in the region. Band-Aid was applied. EXTREMITIES: No cyanosis, clubbing or Edema NEURO: No changes JANNET YATES Jun 11, 2016 08:05
--- NOTE | 2016-06-11 08:06 | General Progress Note ---
Assessment/Plan Assessment/Plan IMPRESSION: 1. Diskitis. with enterococcus 2. Postoperative anemia and pain. 3. Status post drainage of pus in the lumbar region 4. s/p PICC 5. diarrhea PLAN IV antibiotics- per ID check C dif Pain management; noted pain MD reviewed follow CRP local care ID evaluation noted await further surgical recommendations dc planning Subjective Allergies: Coded Allergies: No Known Allergies (Unverified , 05/29/16) Subjective care noted dc planning noted Objective Last 24 Hour Vital Signs Date Time Temp Pulse Resp B/P Pulse Ox O2 Delivery O2 Flow Rate FiO2 06/11/16 04:00 98.2 77 20 140/85 97 Room Air 06/10/16 22:00 99.0 99 17 148/89 Room Air 06/10/16 22:00 99.0 99 17 148/89 Room Air 06/10/16 20:00 99.0 99 17 148/89 Room Air 06/10/16 16:00 98.2 96 18 126/72 94 Room Air 06/10/16 14:27 98.6 06/10/16 14:27 98.6 06/10/16 14:27 98.6 06/10/16 12:16 98.6 98 20 140/84 97 Room Air Intake and Output 06/10/16 06/11/16 19:00 07:00 Intake Total 1795 ml 1560 ml Output Total 1 ml Balance 1795 ml 1559 ml Intake Oral 720 ml 360 ml IV Total 1075 ml 1200 ml Emesis 1 ml # Voids 2 3 Laboratory Tests 06/10/16 09:15: Sodium Level 139, Potassium Level 4.8, Chloride Level 94L, Carbon Dioxide Level 30, Anion Gap 15, Blood Urea Nitrogen 18, Creatinine 1.7H, Estimat Glomerular Filtration Rate 49.0, Glucose Level 100, Calcium Level 9.7, Total Bilirubin 0.3 , Aspartate Amino Transf (AST/SGOT) 17, Alanine Aminotransferase (ALT/SGPT) 16, Alkaline Phosphatase 45, Total Protein 7.0, Albumin 3.6, Globulin 3.4, Albumin/ Globulin Ratio 1.0 06/10/16 10:00: Urine Eosinophils None seen, Urine Random Sodium 44 06/11/16 06:15: Sodium Level 144, Potassium Level 4.4, Chloride Level 101, Carbon Dioxide Level 27, Anion Gap 16H, Blood Urea Nitrogen 16, Creatinine 1.6H, Estimat Glomerular Filtration Rate 52.5, Glucose Level 94, Calcium Level 9.5, Total Bilirubin 0.3, Aspartate Amino Transf (AST/SGOT) 16, Alanine Aminotransferase (ALT/SGPT) 14, Alkaline Phosphatase 45, Total Protein 6.9, Albumin 3.4L, Globulin 3.5, Albumin/ Globulin Ratio 0.9L Height (Feet): 6 Height (Inches): 1.00 Weight (Pounds): 152 Objective PHYSICAL EXAMINATION: GENERAL: A well-developed male, comfortable. NECK: Supple. LUNGS: Clear. CARDIAC: S1 and S2. Regular rhythm. ABDOMEN: Soft and nontender. EXTREMITIES: No edema. The patient has pain in the lower back. drain out . ROSLYN RAYMUNDO Jun 11, 2016 08:06
[2016-06-11] MEDS: Docusate 100mg cap ORAL SCH ×2 (08:59→17:11)
[2016-06-11] MEDS: Linezolid 600mg/300ml (Pre-Mix) IVPB SCH ×2 (08:59→20:54)
[2016-06-11] MEDS: oxyCONTIN 20mg tab ORAL SCH ×3 (09:02→23:29)
[2016-06-11 12:00] VITALS: BP 143/98
--- NOTE | 2016-06-11 12:15 | Infectious Diseases Prog Note ---
Assessment/Plan Assessment/Plan A: L4-L5 osteomyelitis Psoas abscess s/p diskectomy Anemia Acute renal failure P: Continue Linezolid for 29 more days Subjective ROS Limited/Unobtainable: Yes Allergies: Coded Allergies: No Known Allergies (Unverified , 05/29/16) Objective Vital Signs Last 24 Hour Vital Signs Date Time Temp Pulse Resp B/P Pulse Ox O2 Delivery O2 Flow Rate FiO2 06/11/16 08:00 96.2 79 18 129/74 96 Room Air 06/11/16 04:00 98.2 77 20 140/85 97 Room Air 06/10/16 22:00 99.0 99 17 148/89 Room Air 06/10/16 22:00 99.0 99 17 148/89 Room Air 06/10/16 20:00 99.0 99 17 148/89 Room Air 06/10/16 16:00 98.2 96 18 126/72 94 Room Air 06/10/16 14:27 98.6 06/10/16 14:27 98.6 06/10/16 14:27 98.6 06/10/16 12:16 98.6 98 20 140/84 97 Room Air Height (Feet): 6 Height (Inches): 1.00 Weight (Pounds): 152 General Appearance: no acute distress HEENT: mucous membranes moist Respiratory/Chest: lungs clear Cardiovascular: normal rate Abdomen: soft, non tender Extremities: no edema, other - left arm PICC line Laboratory Tests Test 06/11/16 06:15 Sodium Level 144 mEQ/L (135-145) Potassium Level 4.4 mEQ/L (3.4-4.9) Chloride Level 101 mEQ/L (98-107) Carbon Dioxide Level 27 mEQ/L (20-30) Anion Gap 16 (5-15) H Blood Urea Nitrogen 16 mg/dL (7-23) Creatinine 1.6 mg/dL (0.7-1.2) H Estimat Glomerular Filtration Rate 52.5 mL/min (>60) Glucose Level 94 mg/dL (74-106) Calcium Level 9.5 mg/dL (8.6-10.2) Total Bilirubin 0.3 mg/dL (0.0-1.2) Aspartate Amino Transf (AST/SGOT) 16 U/L (5-40) Alanine Aminotransferase (ALT/SGPT) 14 U/L (3-41) Alkaline Phosphatase 45 U/L (40-129) Total Protein 6.9 g/dL (6.6-8.7) Albumin 3.4 g/dL (3.5-5.2) L Globulin 3.5 g/dL Albumin/Globulin Ratio 0.9 (1.0-2.7) L Current Medications Medications (Trade) Dose Ordered Sig/Stefania Route PRN Reason Start Time Stop Time Status Last Admin Dose Admin Acetaminophen (Tylenol) 650 mg Q4H PRN ORAL Mild Pain/Temp > 100.5 05/29/16 19:45 06/28/16 19:44 06/08/16 00:17 Acetaminophen/ Hydrocodone Bitart ([place] 10/325) 1 ea Q4H PRN ORAL Moderate Pain (Pain Scale 4-6) 06/06/16 10:30 06/13/16 10:29 06/10/16 16:11 Baclofen (Lioresal) 20 mg EVERY 8 HOURS ORAL 06/10/16 14:00 07/10/16 13:59 06/11/16 06:18 Bisacodyl (Dulcolax) 10 mg DAILYPRN PRN RECTAL Constipation 06/07/16 19:00 07/07/16 18:59 06/10/16 12:12 Docusate Sodium (Colace) 100 mg TWICE A DAY ORAL 06/07/16 19:00 07/07/16 18:59 06/11/16 08:59 Gabapentin (Neurontin) 600 mg THREE TIMES A DAY ORAL 06/10/16 13:00 07/10/16 12:59 06/11/16 09:01 Hydromorphone HCl (Dilaudid) 2 mg Q3H PRN IVP Severe Breakthru Pain (>7) 06/10/16 09:15 06/17/16 23:59 06/11/16 10:08 Lactulose 30 gm 30 gm FOUR TIMES A DAY PRN ORAL Constipation 06/09/16 09:00 07/09/16 08:59 06/10/16 09:10 Linezolid 300 ml @ 300 mls/hr Q12HR IVPB 06/09/16 13:00 06/16/16 12:59 06/11/16 08:59 Magnesium Hydroxide (Mom) 30 ml DAILYPRN PRN ORAL Constipation 06/07/16 19:00 07/07/16 18:59 06/08/16 06:41 Ondansetron HCl (Zofran) 4 mg Q6H PRN IVP Nausea & Vomiting 05/30/16 10:30 06/29/16 10:29 06/11/16 02:39 Oxycodone HCl (OxyCONTIN) 40 mg Q12HR ORAL 06/10/16 21:00 06/17/16 23:59 06/11/16 09:02 Polyethylene Glycol (Miralax) 17 gm BEDTIME ORAL 06/08/16 21:00 07/08/16 20:59 06/10/16 21:48 Sodium Chloride (Sodium Chloride 1000ml bag) 1,000 ml @ 125 mls/hr Q8H IV 06/10/16 09:00 07/10/16 08:59 06/11/16 08:59 BING RUSSO Jun 11, 2016 12:15
--- NOTE | 2016-06-11 13:02 | Diagnostic Imaging Report ---
Indications: Acute renal failure Technique: Transabdominal real-time grayscale and duplex Doppler imaging of the kidneys, retroperitoneum, and urinary bladder was performed Findings: Comparison: CT abdomen pelvis 05/29/16 Right kidney measures 12.5 cm in length. Normal cortical thickness, mildly increased cortical echogenicity.. Mild collecting system distention. No stones, other focal lesions, hydronephrosis, or obvious perinephric abnormalities. Left kidney measures 12.7 cm in length. Normal cortical thickness, mildly increased cortical echogenicity.. Mild collecting system distention. No stones, other focal lesions, hydronephrosis, or obvious perinephric abnormalities. The intrahepatic portion of inferior vena cava is patent and normal caliber. The urinary bladder is significantly distended, estimated volume not calculated. Post void volume 169 cc. Impression: Bilateral normal size, mildly echogenic kidneys suggestive of medical renal disease Bilateral hydronephrosis. Urinary bladder also distended with significant post void residual so all may be secondary to chronic outflow impediment. CT urography may be of benefit in further evaluation.
--- NOTE | 2016-06-11 16:19 | Diagnostic Imaging Report ---
APPROVED REPORT CPT Code: 92637 Present Symptoms Comments: Pain BILATERAL: Imaging reveals a patent deep venous system bilaterally. There is no evidence of thrombus within the femoral, popliteal or tibial segments. The greater saphenous veins are also within normal limits. Doppler indicates normal spontaneous flow within these segments.
[2016-06-11] MEDS: Miralax 17gm pkt ORAL SCH (20:54)
[2016-06-12] VITALS: BP 136/94
[2016-06-12 04:00] VITALS: BP 140/93
[2016-06-12 08:00] VITALS: BP 155/99
[2016-06-12] MEDS: Docusate 100mg cap ORAL SCH ×2 (08:04→17:38)
[2016-06-12] MEDS: Lactulose 20gm/30ml UDC ORAL PRN (08:04)
[2016-06-12] MEDS: Linezolid 600mg/300ml (Pre-Mix) IVPB SCH ×2 (08:05→21:35)
--- NOTE | 2016-06-12 08:39 | General Progress Note ---
Assessment/Plan Assessment/Plan (1) Lumbar herniated disc (2) Lumbar radiculopathy (3) S/p Diskectomy (4) Lumbar spine discitis and osteomyelitis (5) Left psoas muscle abscess The patient will be continued on Lactulose, OxyContin, Dilaudid, [place], Baclofen and Neurontin increased to 600mg QID. The patient was discussed with Dr. Lovelace and Dr. Lovelace concurred. Subjective Date patient seen: Jun 12, 2016 Time patient seen: 07:30 - am Allergies: Coded Allergies: No Known Allergies (Unverified , 05/29/16) Subjective REVIEW OF SYSTEMS: Denies rash, fever, chills, sweating, dizziness, drowsiness, sore throat, or change in weight. No shortness of breath or chest pain. No blood in the stool or urine. No bowel or bladder incontinence. He is complaining low back pain Nausea and constipation SUBJECTIVE: He reports that the pain has been worse with movement and now is c/o feeling in his right leg. I advised pt to do PT to the best of his abilities. Objective Last 24 Hour Vital Signs Date Time Temp Pulse Resp B/P Pulse Ox O2 Delivery O2 Flow Rate FiO2 06/12/16 08:34 98.2 06/12/16 08:34 98.2 06/12/16 04:00 98.2 85 18 140/93 96 Room Air 06/12/16 00:00 98.4 87 18 136/94 99 Room Air 06/11/16 12:00 97.2 63 20 143/98 95 Room Air Intake and Output 06/11/16 06/12/16 19:00 07:00 Intake Total 1250 ml 1155 ml Output Total 420 ml Balance 1250 ml 735 ml Intake Oral 480 ml IV Total 1250 ml 675 ml Emesis 420 ml # Voids 3 Height (Feet): 6 Height (Inches): 1.00 Weight (Pounds): 152 Objective PHYSICAL EXAMINATION: GENERAL: Alert, awake, and oriented x3. HEENT: PERRLA. NECK: Range of motion is full in all directions. No tenderness to paracervical muscles. No adenopathy. LUNGS: Clear. HEART: S1 and S2 regular. ABDOMEN: Benign. BACK: Range of motion is decreased in flexion and extension with surgical wound noted with tenderness in the region. Band-Aid was applied. EXTREMITIES: No cyanosis, clubbing or Edema NEURO: No changes JANNET YATES Jun 12, 2016 08:39
--- NOTE | 2016-06-12 08:49 | General Progress Note ---
Assessment/Plan Assessment/Plan IMPRESSION: 1. Diskitis. with enterococcus 2. Postoperative anemia and pain. 3. Status post drainage of pus in the lumbar region 4. s/p PICC 5. diarrhea PLAN IV antibiotics- per ID on Linezolid Pain management; noted; need to transition to PO pain MD reviewed follow CRP local care ID evaluation noted await further surgical recommendations dc planning if cleared by all Subjective Allergies: Coded Allergies: No Known Allergies (Unverified , 05/29/16) Subjective care noted dc planning noted has significant pain gets confused Objective Last 24 Hour Vital Signs Date Time Temp Pulse Resp B/P Pulse Ox O2 Delivery O2 Flow Rate FiO2 06/12/16 08:34 98.2 06/12/16 08:34 98.2 06/12/16 04:00 98.2 85 18 140/93 96 Room Air 06/12/16 00:00 98.4 87 18 136/94 99 Room Air 06/11/16 12:00 97.2 63 20 143/98 95 Room Air Intake and Output 06/11/16 06/12/16 19:00 07:00 Intake Total 1250 ml 1280 ml Output Total 420 ml Balance 1250 ml 860 ml Intake Oral 480 ml IV Total 1250 ml 800 ml Emesis 420 ml # Voids 3 Height (Feet): 6 Height (Inches): 1.00 Weight (Pounds): 152 Objective PHYSICAL EXAMINATION: GENERAL: A well-developed male, comfortable. confused at times NECK: Supple. LUNGS: Clear. CARDIAC: S1 and S2. Regular rhythm. ABDOMEN: Soft and nontender. EXTREMITIES: No edema. The patient has pain in the lower back. . ROSLYN RAYMUNDO Jun 12, 2016 08:49
[2016-06-12] MEDS ORDERED: Metoclopramide 10mg/2ml Inj IVP PRN (09:00)
[2016-06-12] MEDS: oxyCONTIN 20mg tab ORAL SCH ×2 (09:00→21:36)
[2016-06-12 09:38] LABS: BASOPHILS % (AUTO) 1.7 % (0.0-2.0); LYMPHOCYTES % (AUTO) 13.4 % (20.0-45.0); MEAN CORPUSCULAR HEMOGLOBIN 29.4 PG (27.0-31.0); MEAN CORPUSCULAR HGB CONC 33.6 G/DL (32.0-36.0); MEAN CORPUSCULAR VOLUME 87 FL (80-99); MEAN PLATELET VOLUME 5.5 FL (6.5-10.1); MONOCYTES % (AUTO) 10.6 % (1.0-10.0); NEUTROPHILS % (AUTO) 70.3 % (45.0-75.0); PLATELET COUNT 391 K/UL (150-450); RED BLOOD COUNT 3.46 M/UL (4.70-6.10); RED CELL DISTRIBUTION WIDTH 10.9 % (11.6-14.8); WHITE BLOOD COUNT 8.9 K/UL (4.8-10.8)
--- NOTE | 2016-06-12 10:43 | General Progress Note ---
Assessment/Plan Assessment/Plan GI CONSULT Dictation to follow Constipation Suspect N/V due to narcotics Hold Oxycontin Laxative Thank you Rosana Vance MD Subjective Allergies: Coded Allergies: No Known Allergies (Unverified , 05/29/16) Objective Last 24 Hour Vital Signs Date Time Temp Pulse Resp B/P Pulse Ox O2 Delivery O2 Flow Rate FiO2 06/12/16 08:34 98.2 06/12/16 08:34 98.2 06/12/16 08:00 99.3 85 20 155/99 97 Room Air 06/12/16 04:00 98.2 85 18 140/93 96 Room Air 06/12/16 00:00 98.4 87 18 136/94 99 Room Air 06/11/16 12:00 97.2 63 20 143/98 95 Room Air Intake and Output 06/11/16 06/12/16 19:00 07:00 Intake Total 1250 ml 1280 ml Output Total 420 ml Balance 1250 ml 860 ml Intake Oral 480 ml IV Total 1250 ml 800 ml Emesis 420 ml # Voids 3 Laboratory Tests 06/12/16 09:20: White Blood Count 8.9, Red Blood Count 3.46L, Hemoglobin 10.2L, Hematocrit 30.3L , Mean Corpuscular Volume 87, Mean Corpuscular Hemoglobin 29.4, Mean Corpuscular Hemoglobin Concent 33.6, Red Cell Distribution Width 10.9L, Platelet Count 391, Mean Platelet Volume 5.5L, Neutrophils (%) (Auto) 70.3, Lymphocytes (%) (Auto) 13.4L, Monocytes (%) (Auto) 10.6H, Eosinophils (%) (Auto ) 4.0H, Basophils (%) (Auto) 1.7, C-Reactive Protein, Quantitative 13.8H Height (Feet): 6 Height (Inches): 1.00 Weight (Pounds): 152 ROSANA VANCE Jun 12, 2016 10:43
[2016-06-12] MEDS ORDERED: Sorbitol Solution UD 30ml ORAL ONE (11:00)
[2016-06-12 12:00] VITALS: BP 159/75
[2016-06-12] MEDS: Metoclopramide 10mg/2ml Inj IVP SCH ×2 (13:46→19:17)
--- NOTE | 2016-06-12 15:51 | Infectious Diseases Prog Note ---
Assessment/Plan Assessment/Plan A: L4-L5 osteomyelitis Psoas abscess s/p diskectomy Anemia Acute renal failure P: Continue Linezolid for 28 more days Subjective ROS Limited/Unobtainable: No Gastrointestinal/Abdominal: Reports: constipation, nausea, other - vomiting decreased today, vomiting Musculoskeletal: Reports: other - back, pain Allergies: Coded Allergies: No Known Allergies (Unverified , 05/29/16) Objective Vital Signs Last 24 Hour Vital Signs Date Time Temp Pulse Resp B/P Pulse Ox O2 Delivery O2 Flow Rate FiO2 06/12/16 14:47 98.2 06/12/16 12:04 98.2 06/12/16 12:00 98.2 99 20 159/75 95 Room Air 06/12/16 08:34 98.2 06/12/16 08:00 99.3 85 20 155/99 97 Room Air 06/12/16 04:00 98.2 85 18 140/93 96 Room Air 06/12/16 00:00 98.4 87 18 136/94 99 Room Air Height (Feet): 6 Height (Inches): 1.00 Weight (Pounds): 152 General Appearance: no acute distress HEENT: mucous membranes moist Respiratory/Chest: lungs clear Cardiovascular: normal rate Abdomen: soft, non tender Extremities: no edema, other - Left arm PICC line Neurologic/Psychiatric: alert, oriented x 3, responsive Laboratory Tests Test 06/12/16 09:20 White Blood Count 8.9 K/UL (4.8-10.8) Red Blood Count 3.46 M/UL (4.70-6.10) L Hemoglobin 10.2 G/DL (14.2-18.0) L Hematocrit 30.3 % (42.0-52.0) L Mean Corpuscular Volume 87 FL (80-99) Mean Corpuscular Hemoglobin 29.4 PG (27.0-31.0) Mean Corpuscular Hemoglobin Concent 33.6 G/DL (32.0-36.0) Red Cell Distribution Width 10.9 % (11.6-14.8) L Platelet Count 391 K/UL (150-450) Mean Platelet Volume 5.5 FL (6.5-10.1) L Neutrophils (%) (Auto) 70.3 % (45.0-75.0) Lymphocytes (%) (Auto) 13.4 % (20.0-45.0) L Monocytes (%) (Auto) 10.6 % (1.0-10.0) H Eosinophils (%) (Auto) 4.0 % (0.0-3.0) H Basophils (%) (Auto) 1.7 % (0.0-2.0) C-Reactive Protein, Quantitative 13.8 mg/dL (< 0.5) H Current Medications Medications (Trade) Dose Ordered Sig/Stefania Route PRN Reason Start Time Stop Time Status Last Admin Dose Admin Acetaminophen (Tylenol) 650 mg Q4H PRN ORAL Mild Pain/Temp > 100.5 05/29/16 19:45 06/28/16 19:44 06/08/16 00:17 Acetaminophen/ Hydrocodone Bitart ([place] 10/325) 1 ea Q4H PRN ORAL Moderate Pain (Pain Scale 4-6) 06/12/16 10:30 06/19/16 23:59 Baclofen (Lioresal) 20 mg EVERY 8 HOURS ORAL 06/10/16 14:00 07/10/16 13:59 06/12/16 06:17 Bisacodyl (Dulcolax) 10 mg DAILYPRN PRN RECTAL Constipation 06/07/16 19:00 07/07/16 18:59 06/10/16 12:12 Docusate Sodium (Colace) 100 mg TWICE A DAY ORAL 06/07/16 19:00 07/07/16 18:59 06/12/16 08:04 Gabapentin (Neurontin) 600 mg QID ORAL 06/12/16 13:00 07/12/16 12:59 06/12/16 13:48 Hydromorphone HCl (Dilaudid) 2 mg Q3H PRN IVP Severe Breakthru Pain (>7) 06/10/16 09:15 06/17/16 23:59 06/12/16 11:34 Lactulose 30 gm 30 gm FOUR TIMES A DAY PRN ORAL Constipation 06/09/16 09:00 07/09/16 08:59 06/12/16 08:04 Linezolid 300 ml @ 300 mls/hr Q12HR IVPB 06/09/16 13:00 06/16/16 12:59 06/12/16 08:05 Magnesium Hydroxide (Mom) 30 ml DAILYPRN PRN ORAL Constipation 06/07/16 19:00 07/07/16 18:59 06/08/16 06:41 Metoclopramide HCl (Reglan) 5 mg Q6H IVP 06/12/16 13:00 07/12/16 12:59 06/12/16 13:46 Ondansetron HCl (Zofran) 4 mg Q6H PRN IVP Nausea & Vomiting 05/30/16 10:30 06/29/16 10:29 06/12/16 05:09 Polyethylene Glycol (Miralax) 17 gm BEDTIME ORAL 06/08/16 21:00 07/08/16 20:59 06/11/16 20:54 Sodium Chloride (Sodium Chloride 1000ml bag) 1,000 ml @ 125 mls/hr Q8H IV 06/10/16 09:00 07/10/16 08:59 06/12/16 09:52 BING RUSSO Jun 12, 2016 15:51
[2016-06-12 16:00] VITALS: BP 133/78
[2016-06-12] MEDS: Norco 10mg/325mg tab ORAL PRN (17:38)
[2016-06-12 20:00] VITALS: BP 151/95
[2016-06-12] MEDS: Miralax 17gm pkt ORAL SCH (21:36)
[2016-06-13] MEDS: Metoclopramide 10mg/2ml Inj IVP SCH ×4 (00:23→18:46)
[2016-06-13 00:53] VITALS: BP 135/90
[2016-06-13] MEDS: oxyCONTIN 20mg tab ORAL SCH ×4 (03:02→21:36)
[2016-06-13 08:00] VITALS: BP 151/95
[2016-06-13] MEDS: Linezolid 600mg/300ml (Pre-Mix) IVPB SCH ×2 (08:30→21:35)
[2016-06-13] MEDS: Docusate 100mg cap ORAL SCH ×2 (08:31→18:46)
--- NOTE | 2016-06-13 09:02 | General Progress Note ---
Assessment/Plan Assessment/Plan IMPRESSION: 1. Diskitis. with enterococcus 2. Postoperative anemia and pain. 3. Status post drainage of pus in the lumbar region 4. s/p PICC 5. diarrhea 6. Nausea 7. Renal insufficiency 8. Hydronephrosis PLAN IV antibiotics- per ID on Linezolid Pain management; noted; need to transition to PO pain MD reviewed follow CRP for change local care ID evaluation noted GI and renal noted await further surgical recommendations dc planning if cleared by all and placement found Subjective Allergies: Coded Allergies: No Known Allergies (Unverified , 05/29/16) Subjective care noted dc planning noted has significant pain gets confused weak Objective Last 24 Hour Vital Signs Date Time Temp Pulse Resp B/P Pulse Ox O2 Delivery O2 Flow Rate FiO2 06/13/16 00:53 97.7 94 21 135/90 99 Room Air 06/12/16 20:00 97.0 79 19 151/95 95 Room Air 06/12/16 16:00 97.7 98 18 133/78 96 Room Air 06/12/16 14:47 98.2 06/12/16 12:04 98.2 06/12/16 12:00 98.2 99 20 159/75 95 Room Air Intake and Output 06/12/16 06/13/16 19:00 07:00 Intake Total 790 ml 1227.5 ml Balance 790 ml 1227.5 ml Intake Oral 240 ml 240 ml IV Total 550 ml 987.5 ml # Voids 3 3 # Bowel Movements 1 Laboratory Tests 06/12/16 09:20: White Blood Count 8.9, Red Blood Count 3.46L, Hemoglobin 10.2L, Hematocrit 30.3L , Mean Corpuscular Volume 87, Mean Corpuscular Hemoglobin 29.4, Mean Corpuscular Hemoglobin Concent 33.6, Red Cell Distribution Width 10.9L, Platelet Count 391, Mean Platelet Volume 5.5L, Neutrophils (%) (Auto) 70.3, Lymphocytes (%) (Auto) 13.4L, Monocytes (%) (Auto) 10.6H, Eosinophils (%) (Auto ) 4.0H, Basophils (%) (Auto) 1.7, C-Reactive Protein, Quantitative 13.8H Height (Feet): 6 Height (Inches): 1.00 Weight (Pounds): 152 Objective PHYSICAL EXAMINATION: GENERAL: A well-developed male, comfortable. confused at times NECK: Supple. LUNGS: Clear. CARDIAC: S1 and S2. Regular rhythm. ABDOMEN: Soft and nontender. EXTREMITIES: No edema. The patient has pain in the lower back. . ROSLYN RAYMUNDO Jun 13, 2016 09:02
--- NOTE | 2016-06-13 09:27 | General Progress Note ---
Assessment/Plan Assessment/Plan (1) Lumbar herniated disc (2) Lumbar radiculopathy (3) S/p Diskectomy (4) Lumbar spine discitis and osteomyelitis (5) Left psoas muscle abscess The patient will be continued on Lactulose, OxyContin, Dilaudid, [place], Baclofen and Neurontin. The patient was discussed with Dr. Lovelace and Dr. Lovelace concurred. Subjective Date patient seen: Jun 13, 2016 Time patient seen: 07:15 - am Allergies: Coded Allergies: No Known Allergies (Unverified , 05/29/16) Subjective REVIEW OF SYSTEMS: Denies rash, fever, chills, sweating, dizziness, drowsiness, sore throat, or change in weight. No shortness of breath or chest pain. No blood in the stool or urine. No bowel or bladder incontinence. He is complaining low back pain Nausea and constipation SUBJECTIVE: Pt explains that his pain has been reducing and has been using the Dilaudid less often. He would like to be discharged from the hospital as soon as he is able. Objective Last 24 Hour Vital Signs Date Time Temp Pulse Resp B/P Pulse Ox O2 Delivery O2 Flow Rate FiO2 06/13/16 08:00 97.0 81 19 151/95 98 Room Air 06/13/16 00:53 97.7 94 21 135/90 99 Room Air 06/12/16 20:00 97.0 79 19 151/95 95 Room Air 06/12/16 16:00 97.7 98 18 133/78 96 Room Air 06/12/16 14:47 98.2 06/12/16 12:04 98.2 06/12/16 12:00 98.2 99 20 159/75 95 Room Air Intake and Output 06/12/16 06/13/16 19:00 07:00 Intake Total 790 ml 1227.5 ml Balance 790 ml 1227.5 ml Intake Oral 240 ml 240 ml IV Total 550 ml 987.5 ml # Voids 3 3 # Bowel Movements 1 Height (Feet): 6 Height (Inches): 1.00 Weight (Pounds): 152 Objective PHYSICAL EXAMINATION: GENERAL: Alert, awake, and oriented x3. HEENT: PERRLA. NECK: Range of motion is full in all directions. No tenderness to paracervical muscles. No adenopathy. LUNGS: Clear. HEART: S1 and S2 regular. ABDOMEN: Benign. BACK: Range of motion is decreased in flexion and extension with surgical wound noted with tenderness in the region. Band-Aid was applied. EXTREMITIES: No cyanosis, clubbing or Edema NEURO: No changes JANNET YATES Jun 13, 2016 09:27
--- NOTE | 2016-06-13 11:02 | Infectious Diseases Prog Note ---
"Assessment/Plan Assessment/Plan antibiotics : linezolid iv A 1. lumbar discitis | osteomyelitis 2. psoas abscess s/p aspiration with enterococcus 3. s/p lumbar discectomy 4. renal failure improving P 1. continue linezolid 27 more days 2. will follow up cultures 3. cbc, bmp, lft q weekly Subjective Constitutional: Denies: chills, fever Respiratory: Denies: dry cough, shortness of breath Gastrointestinal/Abdominal: Denies: diarrhea, nausea, vomiting Musculoskeletal: Reports: pain - decreasing Allergies: Coded Allergies: No Known Allergies (Unverified , 05/29/16) Objective Vital Signs Last 24 Hour Vital Signs Date Time Temp Pulse Resp B/P Pulse Ox O2 Delivery O2 Flow Rate FiO2 06/13/16 08:00 97.0 81 19 151/95 98 Room Air 06/13/16 00:53 97.7 94 21 135/90 99 Room Air 06/12/16 20:00 97.0 79 19 151/95 95 Room Air 06/12/16 16:00 97.7 98 18 133/78 96 Room Air 06/12/16 14:47 98.2 06/12/16 12:04 98.2 06/12/16 12:00 98.2 99 20 159/75 95 Room Air Height (Feet): 6 Height (Inches): 1.00 Weight (Pounds): 152 Respiratory/Chest: lungs clear Cardiovascular: normal rate, regular rhythm, no gallop/murmur Abdomen: soft, non tender Extremities: no edema SMITHA YAP Jun 13, 2016 11:02"
[2016-06-13 12:00] VITALS: BP 138/94
[2016-06-13 16:00] VITALS: BP 149/99
[2016-06-13 20:00] VITALS: BP 151/100
[2016-06-13] MEDS ORDERED: Tubing IV Secondary IV ONE (21:12)
[2016-06-13] MEDS ORDERED: NS 550ML IV ONE (21:12)
[2016-06-13] MEDS ORDERED: 1/2 NS 1000ml IV ONE (21:12)
[2016-06-13] MEDS: Miralax 17gm pkt ORAL SCH (21:35)
--- NOTE | 2016-06-13 23:07 | General Progress Note ---
Assessment/Plan Assessment/Plan Assessment - Constipation - back pain / discitis - N/V - improved, presumed due to narcotics Recommendations - Minimize narcotics - bowel regimen - d/c planning per PMD Subjective Allergies: Coded Allergies: No Known Allergies (Unverified , 05/29/16) Subjective Feels better less N/V on lower dose narcotics c/o pain Objective Last 24 Hour Vital Signs Date Time Temp Pulse Resp B/P Pulse Ox O2 Delivery O2 Flow Rate FiO2 06/13/16 22:35 98.2 06/13/16 22:35 98.2 06/13/16 20:00 98.1 88 19 151/100 98 Nasal Cannula 3.0 06/13/16 16:00 98.2 75 19 149/99 99 06/13/16 12:00 99.5 89 20 138/94 95 Room Air 06/13/16 08:00 97.0 81 19 151/95 98 Room Air 06/13/16 00:53 97.7 94 21 135/90 99 Room Air Intake and Output 06/12/16 06/13/16 19:00 07:00 Intake Total 790 ml 1352.5 ml Balance 790 ml 1352.5 ml Intake Oral 240 ml 240 ml IV Total 550 ml 1112.5 ml # Voids 3 3 # Bowel Movements 1 Height (Feet): 6 Height (Inches): 1.00 Weight (Pounds): 152 Objective Thin WM NCAT supple CTA RRR Soft ND No edema LOY NAVA Jun 13, 2016 23:07
[2016-06-14] VITALS: BP 148/100
[2016-06-14] MEDS: Metoclopramide 10mg/2ml Inj IVP SCH ×4 (01:07→19:25)
[2016-06-14] MEDS: Norco 10mg/325mg tab ORAL PRN (01:07)
[2016-06-14] MEDS: oxyCONTIN 20mg tab ORAL SCH ×2 (03:24→10:07)
[2016-06-14 08:00] VITALS: BP 151/95
[2016-06-14] MEDS: Docusate 100mg cap ORAL SCH ×2 (10:06→19:25)
[2016-06-14] MEDS: Linezolid 600mg/300ml (Pre-Mix) IVPB SCH (10:14)
--- NOTE | 2016-06-14 11:16 | Infectious Diseases Prog Note ---
"Assessment/Plan Assessment/Plan antibiotics : linezolid iv A 1. lumbar discitis | osteomyelitis 2. psoas abscess s/p aspiration with enterococcus 3. s/p lumbar discectomy 4. renal failure improving P 1. continue linezolid 26 more days 2. will follow up cultures 3. cbc, bmp, lft q weekly Subjective Constitutional: Denies: chills, fever Respiratory: Reports: dry cough, Denies: shortness of breath Gastrointestinal/Abdominal: Reports: nausea, Denies: diarrhea, vomiting Musculoskeletal: Reports: pain Allergies: Coded Allergies: No Known Allergies (Unverified , 05/29/16) Objective Vital Signs Last 24 Hour Vital Signs Date Time Temp Pulse Resp B/P Pulse Ox O2 Delivery O2 Flow Rate FiO2 06/14/16 08:00 97.7 80 19 151/95 96 Room Air 06/14/16 03:52 06/14/16 00:00 98.8 80 20 148/100 97 Room Air 06/13/16 22:35 98.2 06/13/16 22:35 98.2 06/13/16 20:00 98.1 88 19 151/100 98 Nasal Cannula 3.0 06/13/16 16:00 98.2 75 19 149/99 99 06/13/16 12:00 99.5 89 20 138/94 95 Room Air Height (Feet): 6 Height (Inches): 1.00 Weight (Pounds): 152 Respiratory/Chest: lungs clear Cardiovascular: normal rate, regular rhythm, no gallop/murmur Abdomen: soft, non tender Extremities: no edema, other - left arm PICC Laboratory Tests Test 06/14/16 09:15 Erythrocyte Sedimentation Rate 93 MM/HR (0-15) H SMITHA YAP Jun 14, 2016 11:16"
[2016-06-14 12:00] VITALS: BP 143/80
--- NOTE | 2016-06-14 15:31 | General Progress Note ---
Assessment/Plan Assessment/Plan IMPRESSION: 1. Diskitis. with enterococcus 2. Postoperative anemia and pain. 3. Status post drainage of pus in the lumbar region 4. s/p PICC 5. diarrhea 6. Nausea 7. Renal insufficiency 8. Hydronephrosis PLAN IV antibiotics- noted Pain management; pain MD reviewed follow CRP and ESR local care ID evaluation noted GI and renal noted await repeat CT Subjective Allergies: Coded Allergies: No Known Allergies (Unverified , 05/29/16) Subjective care noted d/w spine surgeon d/w ID has significant pain more ambulatory weak Objective Last 24 Hour Vital Signs Date Time Temp Pulse Resp B/P Pulse Ox O2 Delivery O2 Flow Rate FiO2 06/14/16 12:00 98.1 86 20 143/80 99 Room Air 06/14/16 08:00 97.7 80 19 151/95 96 Room Air 06/14/16 03:52 06/14/16 00:00 98.8 80 20 148/100 97 Room Air 06/13/16 22:35 98.2 06/13/16 22:35 98.2 06/13/16 20:00 98.1 88 19 151/100 98 Nasal Cannula 3.0 06/13/16 16:00 98.2 75 19 149/99 99 Intake and Output 06/13/16 06/14/16 19:00 07:00 Intake Total 925 ml 1365 ml Balance 925 ml 1365 ml Intake Oral 240 ml IV Total 925 ml 1125 ml # Voids 2 2 Laboratory Tests 06/14/16 09:15: Erythrocyte Sedimentation Rate 93H Height (Feet): 6 Height (Inches): 1.00 Weight (Pounds): 152 Objective PHYSICAL EXAMINATION: GENERAL: A well-developed male, comfortable. confused at times NECK: Supple. LUNGS: Clear. CARDIAC: S1 and S2. Regular rhythm. ABDOMEN: Soft and nontender. EXTREMITIES: No edema. The patient has pain in the lower back. . ROSLYN RAYMUNDO Jun 14, 2016 15:31
[2016-06-14 16:00] VITALS: BP 157/109
[2016-06-14] MEDS ORDERED: Sorbitol Solution UD 30ml ORAL ONE (16:00)
[2016-06-14 20:00] VITALS: BP 146/105
--- NOTE | 2016-06-14 20:47 | General Progress Note ---
Assessment/Plan Assessment/Plan Assessment - Constipation - back pain / discitis - N/V - improved, presumed due to narcotics Recommendations - Minimize narcotics - bowel regimen - Subjective Allergies: Coded Allergies: No Known Allergies (Unverified , 05/29/16) Subjective less N/V on lower dose narcotics c/o back pain Objective Last 24 Hour Vital Signs Date Time Temp Pulse Resp B/P Pulse Ox O2 Delivery O2 Flow Rate FiO2 06/14/16 16:00 97.5 91 20 157/109 94 Room Air 06/14/16 12:00 98.1 86 20 143/80 99 Room Air 06/14/16 08:00 97.7 80 19 151/95 96 Room Air 06/14/16 03:52 06/14/16 00:00 98.8 80 20 148/100 97 Room Air 06/13/16 22:35 98.2 06/13/16 22:35 98.2 Intake and Output 06/13/16 06/14/16 19:00 07:00 Intake Total 925 ml 1365 ml Balance 925 ml 1365 ml Intake Oral 240 ml IV Total 925 ml 1125 ml # Voids 2 2 Laboratory Tests 06/14/16 09:15: Erythrocyte Sedimentation Rate 93H Height (Feet): 6 Height (Inches): 1.00 Weight (Pounds): 152 Objective Thin WM NCAT supple CTA RRR Soft ND No edema LOY NAVA Jun 14, 2016 20:47
[2016-06-14] MEDS: Miralax 17gm pkt ORAL SCH (21:00)
[2016-06-15] VITALS: BP 148/105
[2016-06-15] MEDS: Metoclopramide 10mg/2ml Inj IVP SCH ×4 (01:46→19:28)
[2016-06-15] MEDS: Norco 10mg/325mg tab ORAL PRN ×2 (01:48→23:25)
[2016-06-15] MEDS: oxyCONTIN 20mg tab ORAL SCH ×3 (03:00→14:42)
[2016-06-15 04:00] VITALS: BP 142/110
[2016-06-15 08:00] VITALS: BP 152/110
--- NOTE | 2016-06-15 08:19 | General Progress Note ---
Assessment/Plan Assessment/Plan IMPRESSION: 1. Diskitis. with enterococcus 2. Postoperative anemia and pain. 3. Status post drainage of pus in the lumbar region 4. s/p PICC 5. diarrhea 6. Nausea 7. Renal insufficiency 8. Hydronephrosis PLAN IV antibiotics- noted Pain management; pain MD reviewed follow CRP elevated ESR local care ID evaluation noted GI and renal noted will order MRI and finalize care Subjective Allergies: Coded Allergies: No Known Allergies (Unverified , 05/29/16) Subjective care noted d/w spine surgeon Dr. Goldstein d/w ID d/w renal cannot give contrast Objective Last 24 Hour Vital Signs Date Time Temp Pulse Resp B/P Pulse Ox O2 Delivery O2 Flow Rate FiO2 06/15/16 04:00 97.7 89 19 142/110 98 Room Air 06/15/16 00:00 97.3 91 18 148/105 98 Room Air 06/14/16 20:00 97.9 92 19 146/105 95 Room Air 06/14/16 16:00 97.5 91 20 157/109 94 Room Air 06/14/16 12:00 98.1 86 20 143/80 99 Room Air Intake and Output 06/14/16 06/15/16 19:00 07:00 Intake Total 360 ml 240 ml Balance 360 ml 240 ml Intake Oral 360 ml 240 ml # Voids 3 2 Laboratory Tests 06/14/16 09:15: Erythrocyte Sedimentation Rate 93H 06/15/16 07:30: Sodium Level [Pending], Potassium Level [Pending], Chloride Level [Pending], Carbon Dioxide Level [Pending], Blood Urea Nitrogen [Pending], Creatinine [ Pending], Estimat Glomerular Filtration Rate [Pending], Glucose Level [Pending] , Calcium Level [Pending], C-Reactive Protein, Quantitative [Pending] Height (Feet): 6 Height (Inches): 1.00 Weight (Pounds): 152 Objective PHYSICAL EXAMINATION: GENERAL: A well-developed male, comfortable. confused at times NECK: Supple. LUNGS: Clear. CARDIAC: S1 and S2. Regular rhythm. ABDOMEN: Soft and nontender. EXTREMITIES: No edema. The patient has pain in the lower back. . ROSLYN RAYMUNDO Jun 15, 2016 08:19
[2016-06-15 08:23] LABS: ANION GAP 16 (5-15); CALCIUM 9.4 mg/dL (8.6-10.2); CARBON DIOXIDE 28 mEQ/L (20-30); CHLORIDE 98 mEQ/L (98-107); CREATININE 1.1 mg/dL (0.7-1.2); GLOMERULAR FILTRATION RATE > 60 mL/min (>60); HEMOLYSIS 3; POTASSIUM 3.9 mEQ/L (3.4-4.9); SODIUM 142 mEQ/L (135-145)
[2016-06-15] MEDS: Docusate 100mg cap ORAL SCH ×2 (09:23→17:58)
--- NOTE | 2016-06-15 10:15 | Infectious Diseases Prog Note ---
Assessment/Plan Assessment/Plan A: L4-L5 osteomyelitis Psoas abscess s/p diskectomy Anemia Acute renal failure improving P: Continue Linezolid for 25 more days Subjective ROS Limited/Unobtainable: No Constitutional: Reports: no symptoms Respiratory: Reports: no symptoms Genitourinary: Reports: no symptoms Musculoskeletal: Reports: other - controlled, pain Allergies: Coded Allergies: No Known Allergies (Unverified , 05/29/16) Objective Vital Signs Last 24 Hour Vital Signs Date Time Temp Pulse Resp B/P Pulse Ox O2 Delivery O2 Flow Rate FiO2 06/15/16 08:00 97.2 76 20 152/110 100 Room Air 06/15/16 04:00 97.7 89 19 142/110 98 Room Air 06/15/16 00:00 97.3 91 18 148/105 98 Room Air 06/14/16 20:00 97.9 92 19 146/105 95 Room Air 06/14/16 16:00 97.5 91 20 157/109 94 Room Air 06/14/16 12:00 98.1 86 20 143/80 99 Room Air Height (Feet): 6 Height (Inches): 1.00 Weight (Pounds): 152 General Appearance: no acute distress HEENT: mucous membranes moist Respiratory/Chest: lungs clear Cardiovascular: normal rate Abdomen: soft, non tender Extremities: no edema, other - Left arm PICC line Neurologic/Psychiatric: alert, oriented x 3, responsive Laboratory Tests Test 06/15/16 07:30 Sodium Level 142 mEQ/L (135-145) Potassium Level 3.9 mEQ/L (3.4-4.9) Chloride Level 98 mEQ/L (98-107) Carbon Dioxide Level 28 mEQ/L (20-30) Anion Gap 16 (5-15) H Blood Urea Nitrogen 9 mg/dL (7-23) Creatinine 1.1 mg/dL (0.7-1.2) Estimat Glomerular Filtration Rate > 60 mL/min (>60) Glucose Level 91 mg/dL (74-106) Calcium Level 9.4 mg/dL (8.6-10.2) C-Reactive Protein, Quantitative 6.1 mg/dL (< 0.5) H Current Medications Medications (Trade) Dose Ordered Sig/Stefania Route PRN Reason Start Time Stop Time Status Last Admin Dose Admin Acetaminophen (Tylenol) 650 mg Q4H PRN ORAL Mild Pain/Temp > 100.5 05/29/16 19:45 06/28/16 19:44 06/08/16 00:17 Acetaminophen/ Hydrocodone Bitart ([place] 10/325) 1 ea Q4H PRN ORAL Moderate Pain (Pain Scale 4-6) 06/12/16 10:30 06/19/16 23:59 06/15/16 01:48 Baclofen (Lioresal) 20 mg EVERY 8 HOURS ORAL 06/10/16 14:00 07/10/16 13:59 06/15/16 06:19 Bisacodyl (Dulcolax) 10 mg DAILYPRN PRN RECTAL Constipation 06/07/16 19:00 07/07/16 18:59 06/10/16 12:12 Docusate Sodium (Colace) 100 mg TWICE A DAY ORAL 06/07/16 19:00 07/07/16 18:59 06/15/16 09:23 Gabapentin (Neurontin) 600 mg QID ORAL 06/12/16 13:00 07/12/16 12:59 06/15/16 09:23 Hydromorphone HCl (Dilaudid) 2 mg Q3H PRN IVP Severe Breakthru Pain (>7) 06/10/16 09:15 06/17/16 23:59 06/12/16 11:34 Lactulose 30 gm 30 gm FOUR TIMES A DAY PRN ORAL Constipation 06/09/16 09:00 07/09/16 08:59 06/12/16 08:04 Linezolid (Zyvox) 300 ml @ 300 mls/hr Q12HR IVPB 06/14/16 21:00 06/21/16 20:59 06/15/16 09:24 Magnesium Hydroxide (Mom) 30 ml DAILYPRN PRN ORAL Constipation 06/07/16 19:00 07/07/16 18:59 06/08/16 06:41 Metoclopramide HCl (Reglan) 5 mg Q6H IVP 06/12/16 13:00 07/12/16 12:59 06/15/16 06:20 Ondansetron HCl (Zofran) 4 mg Q6H PRN IVP Nausea & Vomiting 05/30/16 10:30 06/29/16 10:29 06/14/16 21:46 Oxycodone HCl 20 mg 20 mg Q6H ORAL 06/12/16 21:00 06/19/16 20:59 06/15/16 09:23 Polyethylene Glycol (Miralax) 17 gm BEDTIME ORAL 06/08/16 21:00 07/08/16 20:59 06/13/16 21:35 Sodium Chloride (Sodium Chloride 1000ml bag) 1,000 ml @ 125 mls/hr Q8H IV 06/10/16 09:00 07/10/16 08:59 06/15/16 06:19 BING RUSSO Jun 15, 2016 10:15
--- NOTE | 2016-06-15 10:44 | General Progress Note ---
Assessment/Plan Assessment/Plan (1) Lumbar herniated disc (2) Lumbar radiculopathy (3) S/p Diskectomy (4) Lumbar spine discitis and osteomyelitis (5) Left psoas muscle abscess The patient will be continued on Lactulose, OxyContin, Dilaudid, Bogart, Baclofen and Neurontin. The patient was discussed with Dr. Lovelace and Dr. Lovelace concurred. Subjective Date patient seen: Jun 15, 2016 Time patient seen: 07:15 - am Allergies: Coded Allergies: No Known Allergies (Unverified , 05/29/16) Subjective REVIEW OF SYSTEMS: Denies rash, fever, chills, sweating, dizziness, drowsiness, sore throat, or change in weight. No shortness of breath or chest pain. No blood in the stool or urine. No bowel or bladder incontinence. He is complaining low back pain Nausea and constipation SUBJECTIVE: Pain has been stable and he is walking at this time. The pain is a 6/10 at this time. Objective Last 24 Hour Vital Signs Date Time Temp Pulse Resp B/P Pulse Ox O2 Delivery O2 Flow Rate FiO2 06/15/16 08:00 97.2 76 20 152/110 100 Room Air 06/15/16 04:00 97.7 89 19 142/110 98 Room Air 06/15/16 00:00 97.3 91 18 148/105 98 Room Air 06/14/16 20:00 97.9 92 19 146/105 95 Room Air 06/14/16 16:00 97.5 91 20 157/109 94 Room Air 06/14/16 12:00 98.1 86 20 143/80 99 Room Air Intake and Output 06/14/16 06/15/16 19:00 07:00 Intake Total 360 ml 240 ml Balance 360 ml 240 ml Intake Oral 360 ml 240 ml # Voids 3 2 Laboratory Tests 06/15/16 07:30: Sodium Level 142, Potassium Level 3.9, Chloride Level 98, Carbon Dioxide Level 28, Anion Gap 16H, Blood Urea Nitrogen 9, Creatinine 1.1, Estimat Glomerular Filtration Rate > 60, Glucose Level 91, Calcium Level 9.4, C-Reactive Protein, Quantitative 6.1H Height (Feet): 6 Height (Inches): 1.00 Weight (Pounds): 152 Objective PHYSICAL EXAMINATION: GENERAL: Alert, awake, and oriented x3. HEENT: PERRLA. NECK: Range of motion is full in all directions. No tenderness to paracervical muscles. No adenopathy. LUNGS: Clear. HEART: S1 and S2 regular. ABDOMEN: Benign. BACK: Range of motion is decreased in flexion and extension with surgical wound noted with tenderness in the region. Band-Aid was applied. EXTREMITIES: No cyanosis, clubbing or Edema NEURO: No changes JANNET YATES Jun 15, 2016 10:44
[2016-06-15 12:00] VITALS: BP 149/93
--- NOTE | 2016-06-15 15:49 | General Progress Note ---
Assessment/Plan Assessment/Plan Assessment - Constipation - back pain / discitis - N/V - improved, presumed due to narcotics Recommendations - Minimize narcotics - bowel regimen - Will see intermittently / PRN Subjective Allergies: Coded Allergies: No Known Allergies (Unverified , 05/29/16) Subjective intermittent nausea when gets narcotics tolerating PO Objective Last 24 Hour Vital Signs Date Time Temp Pulse Resp B/P Pulse Ox O2 Delivery O2 Flow Rate FiO2 06/15/16 15:36 97.9 06/15/16 13:36 97.9 06/15/16 12:00 97.9 86 20 149/93 97 Room Air 06/15/16 08:00 97.2 76 20 152/110 100 Room Air 06/15/16 04:00 97.7 89 19 142/110 98 Room Air 06/15/16 00:00 97.3 91 18 148/105 98 Room Air 06/14/16 20:00 97.9 92 19 146/105 95 Room Air 06/14/16 16:00 97.5 91 20 157/109 94 Room Air Intake and Output 06/14/16 06/15/16 19:00 07:00 Intake Total 360 ml 240 ml Balance 360 ml 240 ml Intake Oral 360 ml 240 ml # Voids 3 2 Laboratory Tests 06/15/16 07:30: Sodium Level 142, Potassium Level 3.9, Chloride Level 98, Carbon Dioxide Level 28, Anion Gap 16H, Blood Urea Nitrogen 9, Creatinine 1.1, Estimat Glomerular Filtration Rate > 60, Glucose Level 91, Calcium Level 9.4, C-Reactive Protein, Quantitative 6.1H Height (Feet): 6 Height (Inches): 1.00 Weight (Pounds): 152 Objective Thin WM NCAT supple CTA RRR Soft ND No edema LOY NAVA Jun 15, 2016 15:49
[2016-06-15 16:17] VITALS: BP 142/102
[2016-06-15 20:00] VITALS: BP 146/98
[2016-06-15] MEDS: Miralax 17gm pkt ORAL SCH (21:37)
[2016-06-16] MEDS: Metoclopramide 10mg/2ml Inj IVP SCH ×4 (00:49→19:22)
[2016-06-16] MEDS: oxyCONTIN 20mg tab ORAL SCH ×4 (03:14→21:00)
[2016-06-16 04:00] VITALS: BP 141/97
[2016-06-16 08:00] VITALS: BP 136/96
[2016-06-16] MEDS: Norco 10mg/325mg tab ORAL PRN (08:11)
[2016-06-16] MEDS: Docusate 100mg cap ORAL SCH ×2 (08:37→19:23)
--- NOTE | 2016-06-16 08:40 | General Progress Note ---
Assessment/Plan Assessment/Plan (1) Lumbar herniated disc (2) Lumbar radiculopathy (3) S/p Diskectomy (4) Lumbar spine discitis and osteomyelitis (5) Left psoas muscle abscess The patient will be continued on Lactulose, OxyContin, Dilaudid, Keo, Baclofen and Neurontin. The patient was discussed with Dr. Lovelace and Dr. Lovelace concurred. Subjective Date patient seen: Jun 16, 2016 Time patient seen: 08:15 - am Allergies: Coded Allergies: No Known Allergies (Unverified , 05/29/16) Subjective REVIEW OF SYSTEMS: Denies rash, fever, chills, sweating, dizziness, drowsiness, sore throat, or change in weight. No shortness of breath or chest pain. No blood in the stool or urine. No bowel or bladder incontinence. He is complaining low back pain Nausea and constipation SUBJECTIVE: Pt reports pain has been better and is reduced and controlled on the medications. Objective Last 24 Hour Vital Signs Date Time Temp Pulse Resp B/P Pulse Ox O2 Delivery O2 Flow Rate FiO2 06/16/16 04:00 98.1 82 20 141/97 96 Room Air 06/15/16 20:00 98.6 90 19 146/98 98 Room Air 06/15/16 16:17 97.9 90 20 142/102 99 Room Air 06/15/16 15:36 97.9 06/15/16 13:36 97.9 06/15/16 12:00 97.9 86 20 149/93 97 Room Air Intake and Output 06/15/16 06/16/16 18:59 06:59 Intake Total 2145 ml 1365 ml Balance 2145 ml 1365 ml Intake Oral 720 ml 240 ml IV Total 1425 ml 1125 ml # Voids 3 2 # Bowel Movements 1 Height (Feet): 6 Height (Inches): 1.00 Weight (Pounds): 152 Objective PHYSICAL EXAMINATION: GENERAL: Alert, awake, and oriented x3. HEENT: PERRLA. NECK: Range of motion is full in all directions. No tenderness to paracervical muscles. No adenopathy. LUNGS: Clear. HEART: S1 and S2 regular. ABDOMEN: Benign. BACK: Range of motion is decreased in flexion and extension with surgical wound noted with tenderness in the region. Band-Aid was applied. EXTREMITIES: No cyanosis, clubbing or Edema NEURO: No changes JANNET YATES Jun 16, 2016 08:40
[2016-06-16 09:20] LABS: APPEARANCE,URINE CLEAR; KETONES,URINE NEGATIVE (NEGATIVE); LEUKOCYTE ESTERASE ,URINE NEGATIVE (NEGATIVE); NITRITE,URINE NEGATIVE (NEGATIVE); PH,URINE 8 (4.5-8.0); PROTEIN,URINE NEGATIVE (NEGATIVE); UROBILINOGEN,URINE NORMAL MG/DL (0.0-1.0)
[2016-06-16 09:36] LABS: BACTERIA,URINE OCCASIONAL /HPF; RBC,URINE 0-2 /HPF (0 - 0); SQUAMOUS EPITHELIAL CELL,UR OCCASIONAL /LPF (NONE/OCC)
[2016-06-16 09:37] LABS: WBC,URINE 0-2 /HPF (0 - 0)
--- NOTE | 2016-06-16 11:25 | Infectious Diseases Prog Note ---
"Assessment/Plan Assessment/Plan antibiotics : linezolid iv A 1. lumbar discitis | osteomyelitis 2. psoas abscess s/p aspiration with enterococcus 3. s/p lumbar discectomy 4. renal failure improving P 1. continue linezolid 24 more days 2. will follow up cultures 3. cbc, bmp, lft q weekly Subjective Constitutional: Denies: chills, fever Respiratory: Reports: dry cough, Denies: shortness of breath Gastrointestinal/Abdominal: Reports: nausea, Denies: diarrhea, vomiting Musculoskeletal: Reports: pain - in back decreased Allergies: Coded Allergies: No Known Allergies (Unverified , 05/29/16) Objective Vital Signs Last 24 Hour Vital Signs Date Time Temp Pulse Resp B/P Pulse Ox O2 Delivery O2 Flow Rate FiO2 06/16/16 09:10 98.1 06/16/16 09:10 98.1 06/16/16 08:00 97.7 69 20 136/96 100 Room Air 06/16/16 04:00 98.1 82 20 141/97 96 Room Air 06/15/16 20:00 98.6 90 19 146/98 98 Room Air 06/15/16 16:17 97.9 90 20 142/102 99 Room Air 06/15/16 15:36 97.9 06/15/16 12:00 97.9 86 20 149/93 97 Room Air Height (Feet): 6 Height (Inches): 1.00 Weight (Pounds): 152 Respiratory/Chest: lungs clear Cardiovascular: normal rate, regular rhythm, no gallop/murmur Abdomen: soft, non tender Extremities: no edema, other - left arm PICC Laboratory Tests Test 06/16/16 08:47 Urine Color Pale yellow Urine Appearance Clear Urine pH 8 (4.5-8.0) Urine Specific [place] 1.010 (1.005-1.035) Urine Protein Negative (NEGATIVE) Urine Glucose (UA) Negative (NEGATIVE) Urine Ketones Negative (NEGATIVE) Urine Occult Blood Negative (NEGATIVE) Urine Nitrite Negative (NEGATIVE) Urine Bilirubin Negative (NEGATIVE) Urine Urobilinogen Normal MG/DL (0.0-1.0) Urine Leukocyte Esterase Negative (NEGATIVE) Urine RBC 0-2 /HPF (0 - 0) H Urine WBC 0-2 /HPF (0 - 0) Urine Squamous Epithelial Cells Occasional /LPF Urine Bacteria Occasional /HPF (NONE) SMITHA YAP Jun 16, 2016 11:25"
--- NOTE | 2016-06-16 11:49 | General Progress Note ---
Assessment/Plan Assessment/Plan IMPRESSION: 1. Diskitis. with enterococcus 2. Postoperative anemia and pain. 3. Status post drainage of pus in the lumbar region 4. s/p PICC 5. diarrhea 6. Nausea 7. Renal insufficiency 8. Hydronephrosis PLAN IV antibiotics- noted Pain management; pain MD reviewed improved CRP local care ID evaluation noted GI and renal noted will order MRI and finalize care and hope to dc home Subjective Allergies: Coded Allergies: No Known Allergies (Unverified , 05/29/16) Subjective care noted d/w spine surgeon Dr. Goldstein d/w ID d/w renal for MRI Objective Last 24 Hour Vital Signs Date Time Temp Pulse Resp B/P Pulse Ox O2 Delivery O2 Flow Rate FiO2 06/16/16 09:10 98.1 06/16/16 09:10 98.1 06/16/16 08:00 97.7 69 20 136/96 100 Room Air 06/16/16 04:00 98.1 82 20 141/97 96 Room Air 06/15/16 20:00 98.6 90 19 146/98 98 Room Air 06/15/16 16:17 97.9 90 20 142/102 99 Room Air 06/15/16 15:36 97.9 06/15/16 12:00 97.9 86 20 149/93 97 Room Air Intake and Output 06/15/16 06/16/16 19:00 07:00 Intake Total 2145 ml 1365 ml Balance 2145 ml 1365 ml Intake Oral 720 ml 240 ml IV Total 1425 ml 1125 ml # Voids 3 2 # Bowel Movements 1 Laboratory Tests 06/16/16 08:47: Urine Color Pale yellow, Urine Appearance Clear, Urine pH 8, Urine Specific [place] 1.010, Urine Protein Negative, Urine Glucose (UA) Negative, Urine Ketones Negative, Urine Occult Blood Negative, Urine Nitrite Negative, Urine Bilirubin Negative, Urine Urobilinogen Normal, Urine Leukocyte Esterase Negative , Urine RBC 0-2H, Urine WBC 0-2, Urine Squamous Epithelial Cells Occasional, Urine Bacteria Occasional Height (Feet): 6 Height (Inches): 1.00 Weight (Pounds): 152 Objective PHYSICAL EXAMINATION: GENERAL: A well-developed male, comfortable. confused at times NECK: Supple. LUNGS: Clear. CARDIAC: S1 and S2. Regular rhythm. ABDOMEN: Soft and nontender. EXTREMITIES: No edema. The patient has pain in the lower back. . ROSLYN RAYMUNDO Jun 16, 2016 11:49
[2016-06-16 13:31] VITALS: BP 102/47
[2016-06-16] MEDS ORDERED: Tubing IV Secondary IV ONE (14:19)
[2016-06-16] MEDS: Milk of Magnesia 30ml Ud ORAL PRN ×2 (14:27→19:41)
[2016-06-16] MEDS: Lactulose 20gm/30ml UDC ORAL PRN (15:25)
[2016-06-16 16:13] VITALS: BP 137/96
--- NOTE | 2016-06-16 16:34 | Diagnostic Imaging Report ---
Indication: Abdominal and pelvic pain Technique: Coronal and axial single shot fast spin-echo breath-hold, axial T2 FRFSE, AXIAL 2-D FIESTA fat saturated, axial 3-D dual echo breath-hold, water weighted axial LAVA FLEX, images were obtained of the abdomen. No IV contrast utilized, per referring physician request Comparison: Abdomen pelvis CT dated 05/29/2016 Findings: Exam is somewhat limited due to respiratory motion artifact. The liver, gallbladder, bile ducts are unremarkable. The pancreas, spleen, adrenals, kidneys are unremarkable. There is equivocally mild wall thickening of left upper quadrant jejunal loops. Small previously described left psoas abscess is again demonstrated. Increased T2 signal is seen within the L4 and L5 vertebral bodies, consistent with known history of infectious spondylitis. Impression: Increased T2 signal within the L4 and L5 vertebral bodies, not well-demonstrated as this exam was not protocoled for evaluation of such, as previously described, consistent with known history of infectious spondylitis. Small left psoas abscess, previously reported, again demonstrated Equivocal wall thickening of left upper quadrant small bowel loops. If real, could represent enteritis changes. Note, however, very limited utility of MRI for assessment of bowel No other definite acute or significant abnormality. Note, however, if there is high suspicion no significant abdominal or pelvic pathology, CT should be considered
[2016-06-16 20:34] VITALS: BP 146/101
[2016-06-16] MEDS: Miralax 17gm pkt ORAL SCH (21:00)
[2016-06-17] VITALS: BP 144/86
[2016-06-17] MEDS: Metoclopramide 10mg/2ml Inj IVP SCH ×4 (00:07→18:32)
[2016-06-17] MEDS: oxyCONTIN 20mg tab ORAL SCH ×4 (00:09→21:00)
[2016-06-17 04:00] VITALS: BP 120/101
[2016-06-17] MEDS: Docusate 100mg cap ORAL SCH ×2 (07:53→18:32)
--- NOTE | 2016-06-17 08:05 | General Progress Note ---
Assessment/Plan Assessment/Plan IMPRESSION: 1. Diskitis. with enterococcus 2. Postoperative anemia and pain. 3. Status post drainage of pus in the lumbar region 4. s/p PICC 5. diarrhea 6. Nausea 7. Renal insufficiency 8. Hydronephrosis PLAN IV antibiotics- noted Linezolid for 23 days Pain management; pain MD reviewed improved CRP local care ID evaluation noted GI and renal noted proceed with dc planning needs pain medications Subjective Allergies: Coded Allergies: No Known Allergies (Unverified , 05/29/16) Subjective care noted d/w spine surgeon Dr. Goldstein d/w ID reviewed MRI Objective Last 24 Hour Vital Signs Date Time Temp Pulse Resp B/P Pulse Ox O2 Delivery O2 Flow Rate FiO2 06/17/16 04:00 98.2 88 20 120/101 100 Room Air 06/17/16 00:00 98.6 81 20 144/86 100 Room Air 06/16/16 22:19 97.2 06/16/16 22:19 97.2 06/16/16 20:34 97.2 85 20 146/101 100 Room Air 06/16/16 16:13 97.9 91 19 137/96 99 Room Air 06/16/16 13:31 96.3 64 20 102/47 100 Room Air 06/16/16 09:10 98.1 Intake and Output 06/16/16 06/17/16 19:00 07:00 Intake Total 1345 ml 1355 ml Balance 1345 ml 1355 ml Intake Oral 720 ml 480 ml IV Total 625 ml 875 ml # Voids 3 3 Laboratory Tests 06/16/16 08:47: Urine Color Pale yellow, Urine Appearance Clear, Urine pH 8, Urine Specific [place] 1.010, Urine Protein Negative, Urine Glucose (UA) Negative, Urine Ketones Negative, Urine Occult Blood Negative, Urine Nitrite Negative, Urine Bilirubin Negative, Urine Urobilinogen Normal, Urine Leukocyte Esterase Negative , Urine RBC 0-2H, Urine WBC 0-2, Urine Squamous Epithelial Cells Occasional, Urine Bacteria Occasional Height (Feet): 6 Height (Inches): 1.00 Weight (Pounds): 152 Objective PHYSICAL EXAMINATION: GENERAL: A well-developed male, comfortable. confused at times NECK: Supple. LUNGS: Clear. CARDIAC: S1 and S2. Regular rhythm. ABDOMEN: Soft and nontender. EXTREMITIES: No edema. The patient has pain in the lower back. . ROSLYN RAYMUNDO Jun 17, 2016 08:05
--- NOTE | 2016-06-17 08:28 | General Progress Note ---
Assessment/Plan Assessment/Plan (1) Lumbar herniated disc (2) Lumbar radiculopathy (3) S/p Diskectomy (4) Lumbar spine discitis and osteomyelitis (5) Left psoas muscle abscess The patient will be continued on Lactulose, Dilaudid, [place], Baclofen and Neurontin. We will change OxyContin to Q12H we will start Percocet 10/325mg Q4H PRN severe pain. RX for discharge are in chart. The patient was discussed with Dr. Lovelace and Dr. Lovelace concurred. Subjective Date patient seen: Jun 17, 2016 Time patient seen: 08:00 - am Allergies: Coded Allergies: No Known Allergies (Unverified , 05/29/16) Subjective REVIEW OF SYSTEMS: Denies rash, fever, chills, sweating, dizziness, drowsiness, sore throat, or change in weight. No shortness of breath or chest pain. No blood in the stool or urine. No bowel or bladder incontinence. He is complaining low back pain and Nausea SUBJECTIVE: His pain has been reducing and has been doing better. I d/w him about medications. Objective Last 24 Hour Vital Signs Date Time Temp Pulse Resp B/P Pulse Ox O2 Delivery O2 Flow Rate FiO2 06/17/16 04:00 98.2 88 20 120/101 100 Room Air 06/17/16 00:00 98.6 81 20 144/86 100 Room Air 06/16/16 22:19 97.2 06/16/16 22:19 97.2 06/16/16 20:34 97.2 85 20 146/101 100 Room Air 06/16/16 16:13 97.9 91 19 137/96 99 Room Air 06/16/16 13:31 96.3 64 20 102/47 100 Room Air 06/16/16 09:10 98.1 Intake and Output 06/16/16 06/17/16 19:00 07:00 Intake Total 1345 ml 1355 ml Balance 1345 ml 1355 ml Intake Oral 720 ml 480 ml IV Total 625 ml 875 ml # Voids 3 3 Laboratory Tests 06/16/16 08:47: Urine Color Pale yellow, Urine Appearance Clear, Urine pH 8, Urine Specific [place] 1.010, Urine Protein Negative, Urine Glucose (UA) Negative, Urine Ketones Negative, Urine Occult Blood Negative, Urine Nitrite Negative, Urine Bilirubin Negative, Urine Urobilinogen Normal, Urine Leukocyte Esterase Negative , Urine RBC 0-2H, Urine WBC 0-2, Urine Squamous Epithelial Cells Occasional, Urine Bacteria Occasional Height (Feet): 6 Height (Inches): 1.00 Weight (Pounds): 152 Objective PHYSICAL EXAMINATION: GENERAL: Alert, awake, and oriented x3. HEENT: PERRLA. NECK: Range of motion is full in all directions. No tenderness to paracervical muscles. No adenopathy. LUNGS: Clear. HEART: S1 and S2 regular. ABDOMEN: Benign. BACK: Range of motion is decreased in flexion and extension with surgical wound noted with tenderness in the region. Band-Aid was applied. EXTREMITIES: No cyanosis, clubbing or Edema NEURO: No changes JANNET YATES Jun 17, 2016 08:28
[2016-06-17 08:52] VITALS: BP 138/86
[2016-06-17] MEDS ORDERED: ZYVOX600 MG ORAL (08:55)
[2016-06-17] MEDS ORDERED: PERCOCET 10-321 EACH ORAL (08:58)
[2016-06-17] MEDS ORDERED: NEURONTIN100 MG ORAL (08:59)
--- NOTE | 2016-06-17 11:07 | Infectious Diseases Prog Note ---
"Assessment/Plan Assessment/Plan antibiotics : linezolid iv A 1. lumbar discitis | osteomyelitis 2. psoas abscess s/p aspiration with enterococcus 3. s/p lumbar discectomy 4. renal failure improving P 1. continue linezolid 23 more days 2. will follow up cultures 3. cbc, bmp, lft q weekly Subjective Constitutional: Denies: chills, fever Respiratory: Denies: dry cough, shortness of breath Gastrointestinal/Abdominal: Reports: nausea, Denies: diarrhea, vomiting Musculoskeletal: Reports: pain - back pain decreasing Allergies: Coded Allergies: No Known Allergies (Unverified , 05/29/16) Objective Vital Signs Last 24 Hour Vital Signs Date Time Temp Pulse Resp B/P Pulse Ox O2 Delivery O2 Flow Rate FiO2 06/17/16 08:52 98.1 101 20 138/86 98 Room Air 06/17/16 08:52 98.1 06/17/16 04:00 98.2 88 20 120/101 100 Room Air 06/17/16 00:00 98.6 81 20 144/86 100 Room Air 06/16/16 22:19 97.2 06/16/16 20:34 97.2 85 20 146/101 100 Room Air 06/16/16 16:13 97.9 91 19 137/96 99 Room Air 06/16/16 13:31 96.3 64 20 102/47 100 Room Air Height (Feet): 6 Height (Inches): 1.00 Weight (Pounds): 152 Respiratory/Chest: lungs clear Cardiovascular: normal rate, regular rhythm, no gallop/murmur Abdomen: soft, non tender Extremities: no edema, other - left arm PICC SMITHA YAP Jun 17, 2016 11:07"
[2016-06-17 12:05] VITALS: BP 149/99
--- NOTE | 2016-06-17 12:57 | Diagnostic Imaging Report ---
Indication: PAIN Technique: Sagittal T2, axial T2 FR FSE with and and without fat saturation, coronal T2 FR FSE with fat saturation, axial T1 fast spin echo,, water weighted axial LAVA FLEX images of the pelvis Comparison: CT abdomen pelvis 05/29/2016 Findings: No abnormal pelvic fluid collection to suggest abscess demonstrated. Latter is normal. The visualized colon is unremarkable. Visualized small bowel is unremarkable. Spatial detail is insufficient to evaluate for the presence or absence of appendicitis. Impression: No definite acute or significant abnormality. Note, however, limitations of MRI for visualization of pelvic visceral structures. If there is high clinical suspicion for significant pathology, consider CT with contrast for better characterization.
[2016-06-17 16:00] VITALS: BP 143/88
[2016-06-17 20:23] VITALS: BP 150/103
[2016-06-17] MEDS: Miralax 17gm pkt ORAL SCH (21:33)
[2016-06-18] VITALS: BP 142/100
[2016-06-18] MEDS: Metoclopramide 10mg/2ml Inj IVP SCH ×4 (00:17→17:35)
[2016-06-18] MEDS: Norco 10mg/325mg tab ORAL PRN (00:23)
[2016-06-18 07:51] VITALS: BP 143/106
[2016-06-18] MEDS: Docusate 100mg cap ORAL SCH ×4 (08:29→17:43)
[2016-06-18] MEDS: oxyCONTIN 20mg tab ORAL SCH (08:36)
--- NOTE | 2016-06-18 08:36 | General Progress Note ---
Assessment/Plan Assessment/Plan (1) Lumbar herniated disc (2) Lumbar radiculopathy (3) S/p Diskectomy (4) Lumbar spine discitis and osteomyelitis (5) Left psoas muscle abscess The patient will be continued on Percocet, Lactulose, [place], Baclofen and Neurontin. The Dilaudid will be reduced to 1mg Q3H subQ. The patient was discussed with Dr. Lovelace and Dr. Lovelace concurred. Subjective Date patient seen: Jun 18, 2016 Time patient seen: 08:00 - am Allergies: Coded Allergies: No Known Allergies (Unverified , 05/29/16) Subjective REVIEW OF SYSTEMS: Denies rash, fever, chills, sweating, dizziness, drowsiness, sore throat, or change in weight. No shortness of breath or chest pain. No blood in the stool or urine. No bowel or bladder incontinence. He is complaining low back pain SUBJECTIVE: Pt says that the pain has been reducing and is comfortable on the Percocet or [place]. No longer taking the OxyContin and Dilaudid. Objective Last 24 Hour Vital Signs Date Time Temp Pulse Resp B/P Pulse Ox O2 Delivery O2 Flow Rate FiO2 06/18/16 07:51 98.1 78 20 143/106 98 Room Air 06/18/16 00:00 98.1 83 20 142/100 97 Room Air 06/17/16 22:40 98.2 06/17/16 22:39 98.2 06/17/16 22:39 98.2 06/17/16 20:23 98.2 96 19 150/103 99 Room Air 06/17/16 16:00 96.3 105 20 143/88 97 Room Air 06/17/16 12:05 97.5 84 15 149/99 96 06/17/16 08:52 98.1 101 20 138/86 98 Room Air Intake and Output 06/17/16 06/18/16 19:00 07:00 Intake Total 975 ml 240 ml Output Total 400 ml Balance 575 ml 240 ml Intake Oral 600 ml 240 ml IV Total 375 ml Output Urine Total 400 ml # Voids 3 Height (Feet): 6 Height (Inches): 1.00 Weight (Pounds): 152 Objective PHYSICAL EXAMINATION: GENERAL: Alert, awake, and oriented x3. HEENT: PERRLA. NECK: Range of motion is full in all directions. No tenderness to paracervical muscles. No adenopathy. LUNGS: Clear. HEART: S1 and S2 regular. ABDOMEN: Benign. BACK: Range of motion is decreased in flexion and extension with surgical wound noted with tenderness in the region. Band-Aid was applied. EXTREMITIES: No cyanosis, clubbing or Edema NEURO: No changes JANNET YATES Jun 18, 2016 08:36
[2016-06-18] MEDS ORDERED: HYDROmorphone 1mg/ml Carpuject SUBQ PRN (09:15)
--- NOTE | 2016-06-18 09:43 | Infectious Diseases Prog Note ---
Assessment/Plan Assessment/Plan A: L4-L5 osteomyelitis Psoas abscess s/p diskectomy Anemia Acute renal failure resolved P: Continue Linezolid for 22 more days Waiting for placement Subjective ROS Limited/Unobtainable: No Constitutional: Reports: no symptoms Respiratory: Reports: no symptoms Cardiovascular: Reports: no symptoms Gastrointestinal/Abdominal: Reports: no symptoms Musculoskeletal: Reports: pain Allergies: Coded Allergies: No Known Allergies (Unverified , 05/29/16) Objective Vital Signs Last 24 Hour Vital Signs Date Time Temp Pulse Resp B/P Pulse Ox O2 Delivery O2 Flow Rate FiO2 06/18/16 09:28 98.1 06/18/16 07:51 98.1 78 20 143/106 98 Room Air 06/18/16 00:00 98.1 83 20 142/100 97 Room Air 06/17/16 22:39 98.2 06/17/16 22:39 98.2 06/17/16 20:23 98.2 96 19 150/103 99 Room Air 06/17/16 16:00 96.3 105 20 143/88 97 Room Air 06/17/16 12:05 97.5 84 15 149/99 96 Height (Feet): 6 Height (Inches): 1.00 Weight (Pounds): 152 General Appearance: no acute distress HEENT: mucous membranes moist Respiratory/Chest: lungs clear Cardiovascular: normal rate Abdomen: soft, non tender Extremities: no edema, other - Left arm PICC line Neurologic/Psychiatric: alert, oriented x 3, responsive Current Medications Medications (Trade) Dose Ordered Sig/Stefania Route PRN Reason Start Time Stop Time Status Last Admin Dose Admin Acetaminophen (Tylenol) 650 mg Q4H PRN ORAL Mild Pain/Temp > 100.5 05/29/16 19:45 06/28/16 19:44 06/08/16 00:17 Acetaminophen/ Hydrocodone Bitart ([place] 10/325) 1 ea Q4H PRN ORAL Moderate Pain (Pain Scale 4-6) 06/18/16 09:00 07/01/16 08:59 Baclofen (Lioresal) 20 mg EVERY 8 HOURS ORAL 06/10/16 14:00 07/10/16 13:59 06/18/16 05:21 Bisacodyl (Dulcolax) 10 mg DAILYPRN PRN RECTAL Constipation 06/07/16 19:00 07/07/16 18:59 06/10/16 12:12 Docusate Sodium (Colace) 100 mg TWICE A DAY ORAL 06/07/16 19:00 07/07/16 18:59 06/17/16 18:32 Gabapentin (Neurontin) 600 mg QID ORAL 06/12/16 13:00 07/12/16 12:59 06/18/16 08:29 Hydromorphone HCl (Dilaudid) 1 mg Q3H PRN SUBQ Severe Breakthru Pain (>7) 06/18/16 09:15 06/25/16 09:14 Lactulose 30 gm 30 gm FOUR TIMES A DAY PRN ORAL Constipation 06/09/16 09:00 07/09/16 08:59 06/16/16 15:25 Linezolid (Zyvox) 300 ml @ 300 mls/hr Q12HR IVPB 06/14/16 21:00 07/10/16 20:59 06/18/16 08:29 Magnesium Hydroxide (Mom) 30 ml DAILYPRN PRN ORAL Constipation 06/07/16 19:00 07/07/16 18:59 06/16/16 14:27 Metoclopramide HCl 5 mg 5 mg Q6H IVP 06/12/16 13:00 07/12/16 12:59 06/18/16 06:08 Ondansetron HCl (Zofran) 4 mg Q6H PRN IVP Nausea & Vomiting 05/30/16 10:30 06/29/16 10:29 06/16/16 08:11 Oxycodone/ Acetaminophen (Percocet 10/325) 1 tab Q4H PRN ORAL Severe Pain (Pain Scale 7-10) 06/17/16 13:00 06/24/16 12:59 06/17/16 21:45 Polyethylene Glycol (Miralax) 17 gm BEDTIME ORAL 06/08/16 21:00 07/08/16 20:59 06/17/16 21:33 Sodium Chloride (Sodium Chloride 1000ml bag) 1,000 ml @ 125 mls/hr Q8H IV 06/10/16 09:00 07/10/16 08:59 06/17/16 07:53 BIGN RUSSO Jun 18, 2016 09:43
--- NOTE | 2016-06-18 09:57 | General Progress Note ---
Assessment/Plan Assessment/Plan IMPRESSION: 1. Diskitis. with enterococcus 2. Postoperative anemia and pain. 3. Status post drainage of pus in the lumbar region 4. s/p PICC 5. diarrhea 6. Nausea 7. Renal insufficiency 8. Hydronephrosis 9. hypertension PLAN IV antibiotics- noted Linezolid for 22 days Pain management; pain MD reviewed improved CRP local care ID evaluation noted and clearance given GI and renal noted proceed with dc planning to SNF needs pain medications monitor blood pressure Subjective Allergies: Coded Allergies: No Known Allergies (Unverified , 05/29/16) Subjective care noted d/w spine surgeon Dr. Goldstein needs placement Objective Last 24 Hour Vital Signs Date Time Temp Pulse Resp B/P Pulse Ox O2 Delivery O2 Flow Rate FiO2 06/18/16 09:28 98.1 06/18/16 07:51 98.1 78 20 143/106 98 Room Air 06/18/16 00:00 98.1 83 20 142/100 97 Room Air 06/17/16 22:39 98.2 06/17/16 22:39 98.2 06/17/16 20:23 98.2 96 19 150/103 99 Room Air 06/17/16 16:00 96.3 105 20 143/88 97 Room Air 06/17/16 12:05 97.5 84 15 149/99 96 Intake and Output 06/17/16 06/18/16 19:00 07:00 Intake Total 975 ml 240 ml Output Total 400 ml Balance 575 ml 240 ml Intake Oral 600 ml 240 ml IV Total 375 ml Output Urine Total 400 ml # Voids 3 Height (Feet): 6 Height (Inches): 1.00 Weight (Pounds): 152 Objective PHYSICAL EXAMINATION: GENERAL: A well-developed male, comfortable. confused at times NECK: Supple. LUNGS: Clear. CARDIAC: S1 and S2. Regular rhythm. ABDOMEN: Soft and nontender. EXTREMITIES: No edema. The patient has pain in the lower back. . ROSLYN RAYMUNDO Jun 18, 2016 09:57
[2016-06-18 11:55] VITALS: BP 148/100
[2016-06-18 16:00] VITALS: BP 159/102
[2016-06-18 20:00] VITALS: BP 141/95
[2016-06-18] MEDS: Miralax 17gm pkt ORAL SCH (20:27)
[2016-06-19] VITALS: BP 139/93
[2016-06-19] MEDS: Metoclopramide 10mg/2ml Inj IVP SCH ×3 (00:52→12:46)
[2016-06-19 04:00] VITALS: BP 142/95
[2016-06-19] MEDS: Norco 10mg/325mg tab ORAL PRN ×2 (04:44→13:25)
[2016-06-19 08:00] VITALS: BP 144/89
[2016-06-19] MEDS: Docusate 100mg cap ORAL SCH (08:09)
--- NOTE | 2016-06-19 08:31 | General Progress Note ---
Assessment/Plan Assessment/Plan IMPRESSION: 1. Diskitis. with enterococcus 2. Postoperative anemia and pain. 3. Status post drainage of pus in the lumbar region 4. s/p PICC 5. diarrhea 6. Nausea 7. Renal insufficiency 8. Hydronephrosis 9. hypertension PLAN Linezolid for 21 days Pain management; pain MD reviewed monitor CRP local care ID evaluation noted and clearance given GI and renal noted proceed with dc today pain medications monitor blood pressure after dc Subjective Allergies: Coded Allergies: No Known Allergies (Unverified , 05/29/16) Subjective care noted d/w spine surgeon Dr. Goldstein patient to dc and go to friend's house Objective Last 24 Hour Vital Signs Date Time Temp Pulse Resp B/P Pulse Ox O2 Delivery O2 Flow Rate FiO2 06/19/16 04:00 98.4 75 18 142/95 98 Room Air 06/19/16 00:00 97.9 76 18 139/93 99 Room Air 06/18/16 20:00 98.4 79 18 141/95 97 Room Air 06/18/16 16:15 98.1 06/18/16 16:00 98.1 89 19 159/102 98 Room Air 06/18/16 13:35 95.4 06/18/16 13:35 95.4 06/18/16 11:55 95.4 95 20 148/100 97 Room Air Intake and Output 06/18/16 06/19/16 19:00 07:00 Intake Total 720 ml 550 ml Balance 720 ml 550 ml Intake Oral 720 ml 550 ml # Voids 3 4 Height (Feet): 6 Height (Inches): 1.00 Weight (Pounds): 152 Objective PHYSICAL EXAMINATION: GENERAL: A well-developed male, comfortable. confused at times NECK: Supple. LUNGS: Clear. CARDIAC: S1 and S2. Regular rhythm. ABDOMEN: Soft and nontender. EXTREMITIES: No edema. The patient has pain in the lower back. . ROSLYN RAYMUNDO Jun 19, 2016 08:31
--- NOTE | 2016-06-19 08:52 | General Progress Note ---
Assessment/Plan Assessment/Plan (1) Lumbar herniated disc (2) Lumbar radiculopathy (3) S/p Diskectomy (4) Lumbar spine discitis and osteomyelitis (5) Left psoas muscle abscess The patient will be continued on Percocet, Lactulose, Dilaudid, [place], Baclofen and Neurontin. RX for discharge are in chart. The patient was discussed with Dr. Lovelace and Dr. Lovelace concurred. Subjective Date patient seen: Jun 19, 2016 Time patient seen: 07:00 - am Allergies: Coded Allergies: No Known Allergies (Unverified , 05/29/16) Subjective REVIEW OF SYSTEMS: Denies rash, fever, chills, sweating, dizziness, drowsiness, sore throat, or change in weight. No shortness of breath or chest pain. No blood in the stool or urine. No bowel or bladder incontinence. He is complaining low back pain SUBJECTIVE: Pain has been tolerated on the medication and is looking forward to be going home. Objective Last 24 Hour Vital Signs Date Time Temp Pulse Resp B/P Pulse Ox O2 Delivery O2 Flow Rate FiO2 06/19/16 08:00 97.5 109 18 144/89 98 Room Air 06/19/16 04:00 98.4 75 18 142/95 98 Room Air 06/19/16 00:00 97.9 76 18 139/93 99 Room Air 06/18/16 20:00 98.4 79 18 141/95 97 Room Air 06/18/16 16:15 98.1 06/18/16 16:00 98.1 89 19 159/102 98 Room Air 06/18/16 13:35 95.4 06/18/16 13:35 95.4 06/18/16 11:55 95.4 95 20 148/100 97 Room Air Intake and Output 06/18/16 06/19/16 19:00 07:00 Intake Total 720 ml 550 ml Balance 720 ml 550 ml Intake Oral 720 ml 550 ml # Voids 3 4 Height (Feet): 6 Height (Inches): 1.00 Weight (Pounds): 152 Objective PHYSICAL EXAMINATION: GENERAL: Alert, awake, and oriented x3. HEENT: PERRLA. NECK: Range of motion is full in all directions. No tenderness to paracervical muscles. No adenopathy. LUNGS: Clear. HEART: S1 and S2 regular. ABDOMEN: Benign. BACK: Range of motion is decreased in flexion and extension with surgical wound noted with tenderness in the region. Band-Aid was applied. EXTREMITIES: No cyanosis, clubbing or Edema NEURO: No changes JANNET YATES Jun 19, 2016 08:52
--- NOTE | 2016-06-19 09:54 | Infectious Diseases Prog Note ---
Assessment/Plan Assessment/Plan A: L4-L5 osteomyelitis Psoas abscess s/p diskectomy Anemia Acute renal failure resolved P: Continue Linezolid for 21 more days Waiting for placement Subjective ROS Limited/Unobtainable: No Constitutional: Reports: no symptoms Respiratory: Reports: no symptoms Gastrointestinal/Abdominal: Reports: no symptoms Genitourinary: Reports: no symptoms Musculoskeletal: Reports: other - ambulatory Allergies: Coded Allergies: No Known Allergies (Unverified , 05/29/16) Objective Vital Signs Last 24 Hour Vital Signs Date Time Temp Pulse Resp B/P Pulse Ox O2 Delivery O2 Flow Rate FiO2 06/19/16 09:02 98.4 06/19/16 08:42 98.4 06/19/16 08:00 97.5 109 18 144/89 98 Room Air 06/19/16 04:00 98.4 75 18 142/95 98 Room Air 06/19/16 00:00 97.9 76 18 139/93 99 Room Air 06/18/16 20:00 98.4 79 18 141/95 97 Room Air 06/18/16 16:00 98.1 89 19 159/102 98 Room Air 06/18/16 13:35 95.4 06/18/16 11:55 95.4 95 20 148/100 97 Room Air Height (Feet): 6 Height (Inches): 1.00 Weight (Pounds): 152 General Appearance: no acute distress HEENT: mucous membranes moist Respiratory/Chest: lungs clear Cardiovascular: normal rate, other - Left arm PICC Abdomen: soft, non tender Extremities: no edema Neurologic/Psychiatric: alert, oriented x 3, responsive Current Medications Medications (Trade) Dose Ordered Sig/Stefania Route PRN Reason Start Time Stop Time Status Last Admin Dose Admin Acetaminophen (Tylenol) 650 mg Q4H PRN ORAL Mild Pain/Temp > 100.5 05/29/16 19:45 06/28/16 19:44 06/08/16 00:17 Acetaminophen/ Hydrocodone Bitart ([place] 10/325) 1 ea Q4H PRN ORAL Moderate Pain (Pain Scale 4-6) 06/18/16 09:00 07/01/16 08:59 06/19/16 04:44 Baclofen (Lioresal) 20 mg EVERY 8 HOURS ORAL 06/10/16 14:00 07/10/16 13:59 06/19/16 05:56 Bisacodyl (Dulcolax) 10 mg DAILYPRN PRN RECTAL Constipation 06/07/16 19:00 07/07/16 18:59 06/10/16 12:12 Docusate Sodium (Colace) 100 mg TWICE A DAY ORAL 06/07/16 19:00 07/07/16 18:59 06/19/16 08:09 Gabapentin (Neurontin) 600 mg QID ORAL 06/12/16 13:00 07/12/16 12:59 06/19/16 08:09 Hydromorphone HCl (Dilaudid) 1 mg Q3H PRN SUBQ Severe Breakthru Pain (>7) 06/18/16 09:15 06/25/16 09:14 Lactulose 30 gm 30 gm FOUR TIMES A DAY PRN ORAL Constipation 06/09/16 09:00 07/09/16 08:59 06/16/16 15:25 Linezolid (Zyvox) 300 ml @ 300 mls/hr Q12HR IVPB 06/14/16 21:00 07/10/16 20:59 06/19/16 08:09 Magnesium Hydroxide (Mom) 30 ml DAILYPRN PRN ORAL Constipation 06/07/16 19:00 07/07/16 18:59 06/16/16 14:27 Metoclopramide HCl 5 mg 5 mg Q6H IVP 06/12/16 13:00 07/12/16 12:59 06/19/16 05:56 Ondansetron HCl (Zofran) 4 mg Q6H PRN IVP Nausea & Vomiting 05/30/16 10:30 06/29/16 10:29 06/19/16 07:44 Oxycodone/ Acetaminophen (Percocet 10/325) 1 tab Q4H PRN ORAL Severe Pain (Pain Scale 7-10) 06/17/16 13:00 06/24/16 12:59 06/19/16 07:43 Polyethylene Glycol (Miralax) 17 gm BEDTIME ORAL 06/08/16 21:00 07/08/16 20:59 06/17/16 21:33 Sodium Chloride (Sodium Chloride 1000ml bag) 1,000 ml @ 125 mls/hr Q8H IV 06/10/16 09:00 07/10/16 08:59 06/17/16 07:53 BING RUSSO Jun 19, 2016 09:54
[2016-06-19 12:13] VITALS: BP 148/90
[2016-06-19] MEDS ORDERED: COLACE100 MG ORAL (14:29)
[2016-06-19] MEDS ORDERED: ZOFRAN4 M3 ORAL (14:29)
[2016-06-19 16:00] VITALS: BP 155/90
--- NOTE | 2016-06-20 16:37 | Discharge Summary ---
Discharge Summary Hospital Course Date of Admission May 29, 2016 at 14:55 Date of Discharge Jun 19, 2016 at 16:44 Admitting Diagnosis abscess on back HPI Susi Hector is a 26 year old male who was admitted on May 29, 2016 at 14:55 for Abscess On Back Hospital Course [id number] Discharge Discharge Disposition Patient was discharged to Home (01) Discharge Diagnoses: Kristine Cruz NP Jun 20, 2016 16:37
--- NOTE | 2016-06-20 23:59 | Discharge Summary 2 SIG ---
DATE OF ADMISSION: 05/29/2016 DATE OF DISCHARGE: 06/19/2016 REVENUE ACCOUNTING MANAGER: 1. Linette Waters M.D. 2. Merrill Lovelace M.D. 3. Mary Villareal M.D. BRIEF HOSPITAL COURSE: The patient is a 26-year-old male, who recently underwent lumbar diskectomy and postoperatively he was noted to have some inflammation and pain on the back area. He had undergone aspiration and pus was removed. He was advised by his surgeon to present to the hospital for IV antibiotic treatment. CT scan and MRI showed L4-L5 diskitis/osteomyelitis with multi loculated left psoas muscle abscess noted. Dr. Waters was consulted and the patient was placed on IV vancomycin and Zosyn. He was given pain management consisting of OxyContin and Dilaudid for severe pain and [place] for mild pain. Wound culture showed growth of enterococcus. The patient was given linezolid, which he will use for 30 days. The patient had lengthy stay as there was difficulty in placing the patient in senior living, so he could continue on IV antibiotics. The patient was eventually discharged home to continue p.o. antibiotics. FINAL DIAGNOSES: 1. Diskitis/osteomyelitis with enterococcus. 2. Postoperative anemia and pain. 3. Status post drainage of pus in lumbar region. 4. Status post PICC line placement. 5. Diarrhea. 6. Nausea. 7. Renal insufficiency. 8. Hydronephrosis. 9. Hypertension. 10. Acute renal failure, resolved. 11. Psoas abscess. Dl Hassan M.D. I have been assigned to dictate discharge summary on this account and I was not involved in the patient's management. Kristine Cruz N.P. DR: EMELYN JOB#: [id number] CC: CONTRERAS
--- NOTE | 2016-06-23 08:44 | Diagnostic Imaging Report ---
Indications: Back pain. History of lumbar discitis Technique: Spiral acquisitions obtained through the lumbar spine. Multiplanar reconstructions were generated. No IV contrast utilized. Total dose length product 340 mGycm. CTDIvol(s) 11 mGy Comparison: Contrast CT 06/06/2016 Findings: Compared to the prior study, assessment of the L4-5 disc and surrounding soft tissue is somewhat limited due to the absence of IV contrast used on the current exam. The endplate erosive abnormalities surrounding the L4-5 disc appear to have progressed slightly, with slightly deeper erosions into the inferior and superior endplates anteriorly to the right of midline and laterally on the left. There is subtle slight loss of height of the right lateral wall of the L4 vertebral body, with suggestion of a fracture line through the inferolateral corner, which is slightly laterally displaced as compared to the prior exam. The abnormal epidural soft tissue posterior to the L5 vertebral body previously described appears unchanged. Due to the absence of IV contrast, the degree of involvement of the left psoas muscle cannot be adequately compared to the previous study. However, the left psoas appears slightly less swollen than on the prior exam. The adjacent soft tissues also appear slightly less infiltrated. There still is some very subtle ill-defined low-attenuation within the posterior psoas muscle belly which could represent residual abscess. The remainder of the vertebral body heights are preserved. The remaining disc spaces are preserved. The included extraspinal soft tissues are unremarkable. Impression: Since previous study of 06/06/2016, there is suggestion of slight progression of superior L5 and inferior L4 endplate erosive changes, related to known history of L4-5 discitis/osteomyelitis. There is also suggestion of a pathologic corner fracture of the inferolateral right L4 vertebral body wall, with resultant slight lateral displacement of the inferolateral corner, visible on the coronal and axial images, not evident previously Due to lack of IV contrast used on the current exam, unable to accurately compare degree of left psoas inflammation/abscess with the prior study. Swelling of the left psoas does appear to improve somewhat, suggesting some decrease in degree of inflammation, but residual small abscess cannot excluded with any confidence. There is at least no gross evidence of disease progression Epidural thickening posterior to the L4 on L5 vertebral bodies and disc appears unchanged compared to prior study. The CT scanner at [facility] is accredited by the [employer] and the scans are performed using protocols designed to limit radiation exposure to as low as reasonably achievable to attain images of sufficient resolution adequate for diagnostic evaluation.
== END 2016-06-19 16:44 | disposition home or self-care (01) | DRG 551 ==
LOC: EMR 13:52 → 3E 14:55 → EDBEDREQ 15:27
PROC: B518ZZA Fluoroscopy of Superior Vena Cava, Guidance (ICD-10-PCS; principal; 2016-06-02)
PROC: 02HV33Z Insertion of Infusion Device into Superior Vena Cava, Percutaneous Approach (ICD-10-PCS; principal; 2016-06-02)
DX: M46.46 Discitis, unspecified, lumbar region (principal); K68.12 Psoas muscle abscess; N17.9 Acute kidney failure, unspecified; N13.30 Unspecified hydronephrosis; M46.26 Osteomyelitis of vertebra, lumbar region; I10 Essential (primary) hypertension; D64.9 Anemia, unspecified; F12.90 Cannabis use, unspecified, uncomplicated; M51.16 Intervertebral disc disorders with radiculopathy, lumbar region
CPT/HCPCS: 36415; 36569; 71010; 72131; 72132; 72158; 72193; 72195; 74177; 74181; 75989; 76775; 76937; 80048; 80053; 80202; 81001; 81003; 82565; 83690; 84300; 85007; 85025; 85610; 85651; 85730; 86140; 86850; 86900; 86901; 87040; 87070; 87116; 87181; 87205; 89050; 93970; A9585; J2405; J2765